=== PATIENT | male | born 1980 | race Caucasian/White ===

== ENCOUNTER 2016-05-03 18:24 | Emergency (ER) | payer OTHER ==
[~2016-05-03] VITALS: Ht 193 cm; Wt 169.6 kg
[~2016-05-03 18:24] MED LIST: FURO-85 PO; GLC500 PO; INSDGIPEN SC; LEVO200T6 PO; LEVO25TA5 PO; LISI40TA PO; LPT10 PO; PROM12.57 PO; SERT-234 PO; TPRSR/25 PO
[2016-05-03 18:31] VITALS: TEMP 37.1; Ht 193 cm; Wt 169.6 kg
[2016-05-03] MEDS ORDERED: FUROSEMIDE 40 MG/4 ML VIAL IV STA (19:01)
--- NOTE | 2016-05-03 19:19 | DIAGNOSTIC IMAGING REPORT ---
CHEST ONE VIEW PORTABLE CLINICAL HISTORY: Bilateral leg swelling. COMPARISON STUDY: 07/03/2012 FINDINGS: The heart is normal in size. There is mild nonspecific interstitial thickening. There is mild prominence of the left suprahilar region. While this may represent a vascular confluence, mild adenopathy cannot be excluded. There are no pleural effusions. There is a poor inspiration.[ IMPRESSION: 1. Suboptimal inspiration with nonspecific interstitial thickening 2. Mild prominence of the left superior hilum Electronically signed by: Bladimir Armenta M.D. 05/03/2016 7:18 PM Dictated Date/Time: 05/03/2016 7:16 PM
--- NOTE | 2016-05-03 19:39 | EMERGENCY ROOM VISIT NOTE ---
History Report prepared by John: April Balderrama Under the Supervision of: Dr. Ronnell Smith M.D. First contact with patient: 18:44 Chief Complaint: EDEMA TO EXTREMITY Stated Complaint: FLUID BUILD UP IN EXTREMITIES History of Present Illness The patient is a 36 year old male who presents to the Emergency Room with complaints of worsening bilaterally lower extremity swelling for the past 2 days. He states that he has felt "off" for the past couple of days. Yesterday he noticed increased swelling to his feet. Today this has spread up his legs. He denies consuming any increased amount of salt. He takes Lasix every morning. He has not missed any doses. The patient rates his pain as a 3/10. He denies any chest pain or shortness of breath. He has a history of blood clots but is not currently on any blood thinners. Source of History: patient Onset: 2 days ago Position: leg (bilateral) Symptom Intensity: 3/10 Quality: other (swelling) Timing: worsening Associated Symptoms: No SOB, No chest pain Review of Systems See HPI for pertinent positives & negatives. A total of 10 systems reviewed and were otherwise negative. Past Medical & Surgical Medical Problems: (1) Depressive Disorder Nec (2) Diab Heidy Wo Compl, Type Ii Or Unspec Type, Not Uncntrld (3) History Of Tobacco Use (4) Hypertension Nos (5) Hypothyroidism Nos (6) PE (pulmonary thromboembolism) Surgical Problems: (1) History of shoulder surgery Family History Diabetes mellitus Hypertension Kidney disease Kidney stones Social History Smoking Status: Never Smoker Alcohol Use: none Marital Status: single Housing Status: lives with family Occupation Status: unemployed Current/Historical Medications Scheduled Atorvastatin (Atorvastatin Calcium), 10 MG PO WK Furosemide (Lasix), 40 MG PO QAM Insulin Glargine (Lantus *), 50 SC QAM Levothyroxine Sodium (Levothyroxine Sodium), 200 MCG PO DAILY Levothyroxine Sodium (Levothyroxine Sodium), 50 MCG PO DAILY Lisinopril (Prinivil), 40 MG PO BID Metformin HCL (Glucophage *), 500 MG PO BID Metoprolol Succinate (Metoprolol Succinate ER), 50 MG PO QPM Sertraline (Zoloft), 100 MG PO DAILY Scheduled PRN Promethazine (Phenergan ), 1-2 TABS PO Q4 PRN for nausea Allergies Coded Allergies: No Known Allergies (Verified , 05/03/16) Physical Exam Vital Signs Date Time Temp Pulse Resp B/P Pulse Ox O2 Delivery O2 Flow Rate FiO2 05/03/16 22:11 74 18 180/103 100 05/03/16 20:07 70 18 183/114 100 Room Air 05/03/16 18:31 37.1 80 16 169/109 98 Room Air Physical Exam GENERAL: Patient is a healthy-appearing well-nourished 36 year old male. HEAD: Normocephalic atraumatic EYES: Ocular movements intact pupils equal and react to light OROPHARYNX mucous membranes are moist no exudates present no erythema or edema present NECK: Supple no nuchal rigidity CHEST: Good equal expansion LUNGS: Clear and equal to auscultation CARDIAC: Normal S1 and S2 ABDOMEN: Soft nontender no guarding BACK: No CVA tenderness EXTREMITIES: No pain upon palpation normal muscle strength in all groups no clubbing or cyanosis. Bilateral lower extremity edema. NEURO: Patient is following commands is answering questions appropriately. Alert and oriented x3 Cranial Nerves 2-12 grossly intact Medical Decision & Procedures ER Provider Diagnostic Interpretation: Radiology results as stated below per my review and radiologist interpretation: ULTRASOUND VENOUS DOPPLER LWR EXT BILA CLINICAL HISTORY: Bilateral leg swelling PAIN COMPARISON STUDY: 07/28/2014 FINDINGS: The examination was difficult secondary to the patient's large body habitus. No thrombus is visualized in the common femoral, superficial femoral, or popliteal veins bilaterally. The anterior tibial peroneal veins were not visualized bilaterally. Posterior tibial veins appeared patent. IMPRESSION: 1. No evidence of lower extremity DVT 2. Suboptimal visualization of the calf vessels Electronically signed by: Bladimir Armenta M.D. 05/03/2016 9:24 PM Dictated Date/Time: 05/03/2016 9:23 PM CHEST ONE VIEW PORTABLE CLINICAL HISTORY: Bilateral leg swelling. COMPARISON STUDY: 07/03/2012 FINDINGS: The heart is normal in size. There is mild nonspecific interstitial thickening. There is mild prominence of the left suprahilar region. While this may represent a vascular confluence, mild adenopathy cannot be excluded. There are no pleural effusions. There is a poor inspiration.[ IMPRESSION: 1. Suboptimal inspiration with nonspecific interstitial thickening 2. Mild prominence of the left superior hilum Electronically signed by: Bladimir Armenta M.D. 05/03/2016 7:18 PM Dictated Date/Time: 05/03/2016 7:16 PM Laboratory Results 05/03/16 19:15 Red Blood Count 4.17, Mean Corpuscular Volume 87.1, Mean Corpuscular Hemoglobin 30.5, Mean Corpuscular Hemoglobin Concent 35.0, Mean Platelet Volume 10.4, Neutrophils (%) (Auto) 58.7, Lymphocytes (%) (Auto) 27.7, Monocytes (%) (Auto) 5.4, Eosinophils (%) (Auto) 7.7, Basophils (%) (Auto) 0.3, Neutrophils # (Auto) 3.38, Lymphocytes # (Auto) 1.59, Monocytes # (Auto) 0.31, Eosinophils # (Auto) 0.44, Basophils # (Auto) 0.02 05/03/16 19:15 Test 05/03/16 19:15 White Blood Count 5.75 K/uL (4.8-10.8) Red Blood Count 4.17 M/uL (4.7-6.1) Hemoglobin 12.7 g/dL (14.0-18.0) Hematocrit 36.3 % (42-52) Mean Corpuscular Volume 87.1 fL (80-100) Mean Corpuscular Hemoglobin 30.5 pg (25-34) Mean Corpuscular Hemoglobin Concent 35.0 g/dl (32-36) Platelet Count 173 K/uL (130-400) Mean Platelet Volume 10.4 fL (7.4-10.4) Neutrophils (%) (Auto) 58.7 % Lymphocytes (%) (Auto) 27.7 % Monocytes (%) (Auto) 5.4 % Eosinophils (%) (Auto) 7.7 % Basophils (%) (Auto) 0.3 % Neutrophils # (Auto) 3.38 K/uL (1.4-6.5) Lymphocytes # (Auto) 1.59 K/uL (1.2-3.4) Monocytes # (Auto) 0.31 K/uL (0.11-0.59) Eosinophils # (Auto) 0.44 K/uL (0-0.5) Basophils # (Auto) 0.02 K/uL (0-0.2) RDW Standard Deviation 39.6 fL (36.4-46.3) RDW Coefficient of Variation 12.6 % (11.5-14.5) Immature Granulocyte % (Auto) 0.2 % Immature Granulocyte # (Auto) 0.01 K/uL (0.00-0.02) Anion Gap 8.0 mmol/L (3-11) Est Creatinine Clear Calc Drug Dose 115.5 ml/min Estimated GFR () 68.4 Estimated GFR (Non- 59.0 BUN/Creatinine Ratio 12.2 (10-20) Calcium Level 8.8 mg/dl (8.5-10.1) Total Bilirubin 0.3 mg/dl (0.2-1) Aspartate Amino Transf (AST/SGOT) 17 U/L (15-37) Alanine Aminotransferase (ALT/SGPT) 27 U/L (12-78) Alkaline Phosphatase 95 U/L (45-117) Pro-B-Type Natriuretic Peptide 489 pg/ml (0-450) Total Protein 7.4 gm/dl (6.4-8.2) Albumin 3.4 gm/dl (3.4-5.0) Globulin 4.0 gm/dl (2.5-4.0) Albumin/Globulin Ratio 0.9 (0.9-2) Labs reviewed by ED physician. Medications Administered Medications (Trade) Dose Ordered Sig/Katelin Route Start Time Stop Time Status Last Admin Dose Admin Furosemide (Lasix Inj) 40 mg NOW STAT IV 05/03/16 19:01 05/03/16 19:05 DC 05/03/16 20:04 40 MG ECG Indication: other Rate (beats per minute): 73 Rhythm: normal sinus Findings: no acute ischemic change, no ectopy Comparison ECG Date: 07/02/15 Change: no significant change ED Course 184: Past medical records reviewed. The patient was evaluated in room C8. A complete history and physical examination was performed. 1900: Lasix 40 mg IV 2201: I reassessed the patient at this time. He is feeling better and resting comfortably. I discussed the results and treatment plan with the patient. I answered all pertaining questions that he had. He expressed understanding and verbalized agreement. The patient will be discharged home. Medical Decision Differential diagnosis: Etiologies such as infections, reactive airway disease, pneumonia, pneumothorax , COPD, CHF, cardiac ischemia, pulmonary embolism, musculoskeletal, gastrointestinal, as well as others were entertained. This is a 36-year-old male who presents emergency department complaining of bilateral leg swelling. The patient was supposed to be using compression stockings however he never got the prescription filled. In addition the patient has a normal chest x-ray has no evidence of failure on. He was given 40 mg of Lasix in the emergency department. Ultrasounds of bilateral extremity is do not show any evidence of a DVT. Based on these findings I felt that the patient as well as to be discharged home. The patient was given compression stockings. I encouraged him follow-up with his primary care physician. Patient was in agreement with the treatment plan. Impression Primary Impression: Localized swelling of both lower legs Scribe Attestation The scribe's documentation has been prepared under my direction and personally reviewed by me in its entirety. I confirm that the note above accurately reflects all work, treatment, procedures, and medical decision making performed by me. Departure Information Dispostion Home / Self-Care Referrals Kareem Jewell M.D. (PCP) Forms HOME CARE DOCUMENTATION FORM, IMPORTANT VISIT INFORMATION, WORK / SCHOOL INSTRUCTIONS Patient Instructions A Signature Page, My [facility] Additional Instructions You have been examined and treated today on an emergency basis only. This is not a substitute for, or an effort to provide, complete comprehensive medical care. It is impossible to recognize and treat all injuries or illnesses in a single emergency department visit. It is therefore important that you follow up closely with Dr Jewell. Call as soon as possible for an appointment. Thank you for your time and consideration. I look forward to speaking with you again soon. Please don't hesitate to call us if you have any questions.
[2016-05-03 19:54] LABS: BASO % 0.3 %; BASO ABS # 0.02 K/uL (0-0.2); COMPLETE YES; EOS % 7.7 %; HEMATOCRIT 36.3 % (42-52); IG% 0.2 %; LYMPH % 27.7 %; LYMPH ABS # 1.59 K/uL (1.2-3.4); MEAN CELL VOLUME 87.1 fL (80-100); MEAN CORPUSCULAR HEMOGLOBIN 30.5 pg (25-34); MEAN PLATELET VOLUME 10.4 fL (7.4-10.4); MONO % 5.4 %; NEUT % 58.7 %; PLATELET COUNT 173 K/uL (130-400); RED BLOOD COUNT 4.17 M/uL (4.7-6.1); WHITE BLOOD COUNT 5.75 K/uL (4.8-10.8)
[2016-05-03 20:13] LABS: BUN/CREATININE RATIO 12.2 (10-20); CALCIUM 8.8 mg/dl (8.5-10.1); CREATININE 1.5 mg/dl (0.60-1.40); POTASSIUM 3.5 mmol/L (3.5-5.1)
[2016-05-03 20:18] LABS: ALB/GLOB RATIO 0.9 (0.9-2)
--- NOTE | 2016-05-03 21:26 | DIAGNOSTIC IMAGING REPORT ---
ULTRASOUND VENOUS DOPPLER LWR EXT BILA CLINICAL HISTORY: Bilateral leg swelling PAIN COMPARISON STUDY: 07/28/2014 FINDINGS: The examination was difficult secondary to the patient's large body habitus. No thrombus is visualized in the common femoral, superficial femoral, or popliteal veins bilaterally. The anterior tibial peroneal veins were not visualized bilaterally. Posterior tibial veins appeared patent. IMPRESSION: 1. No evidence of lower extremity DVT 2. Suboptimal visualization of the calf vessels Electronically signed by: Bladimir Armenta M.D. 05/03/2016 9:24 PM Dictated Date/Time: 05/03/2016 9:23 PM
[2016-05-03 22:11] VITALS: BP 180/103; PULSE 74; O2SAT 100
== END 2016-05-03 22:17 | disposition home or self-care (01) ==
LOC: C.EDB 18:29 → C.EDC 22:17
DX: R22.41 Localized swelling, mass and lump, right lower limb (principal); R22.42 Localized swelling, mass and lump, left lower limb; I10 Essential (primary) hypertension; E11.9 Type 2 diabetes mellitus without complications; E03.9 Hypothyroidism, unspecified; F32.9 Major depressive disorder, single episode, unspecified; Z86.711 Personal history of pulmonary embolism; Z87.891 Personal history of nicotine dependence; Z98.890 Other specified postprocedural states; Z79.4 Long term (current) use of insulin; Z79.899 Other long term (current) drug therapy; Z83.3 Family history of diabetes mellitus; Z82.49 Family history of ischemic heart disease and other diseases of the circulatory system; Z84.1 Family history of disorders of kidney and ureter

== ENCOUNTER → 2016-09-03 | Outpatient (CLI) | payer OTHER ==
[~2016-09-03] MED LIST changes: +AZITTAB PO; +BUPR-266 PO; +GLC/500 PO; -PROM12.57 PO; +VNTHFA/IN INH
[2016-09-03 17:30] LABS: HEMATOCRIT 38.2 % (42-52); MEAN CELL VOLUME 91.4 fL (80-100); MEAN CORPUSCULAR HEMOGLOBIN 30.9 pg (25-34); MEAN CORPUSCULAR HGB CONC 33.8 g/dl (32-36); MEAN PLATELET VOLUME 10.4 fL (7.4-10.4); PLATELET COUNT 182 K/uL (130-400); RED BLOOD COUNT 4.18 M/uL (4.7-6.1); WHITE BLOOD COUNT 6.79 K/uL (4.8-10.8)
[2016-09-03 17:55] LABS: CALCIUM 9.5 mg/dl (8.5-10.1); URINE APPEARANCE CLEAR (CLEAR); URINE BILIRUBIN NEG (NEG); URINE COLOR YELLOW; URINE EPITHELIAL CELL AUTO 20-30 /lpf (0-5); URINE NITRITE NEG (NEG); URINE SPECIFIC GRAVITY 1.017 (1.000-1.030); UROBILINOGEN NEG (NEG)
[2016-09-03 17:58] LABS: MANUAL MICROSCOPIC REQUIRED? NO; REVIEW REQ? NO; URINE PROTIEN/CREAT RATIO 0.1 (0-0.2)
[2016-09-03 18:00] LABS: ALT/SGPT 30 U/L (12-78); AST/SGOT 18 U/L (15-37); BLOOD UREA NITROGEN 41 mg/dl (7-18); BUN/CREATININE RATIO 18.5 (10-20); CARBON DIOXIDE 25 mmol/L (21-32); CHLORIDE 107 mmol/L (98-107); CHOLESTEROL 263 mg/dl (0-200); GLUCOSE 137 mg/dl (70-99); SODIUM 140 mmol/L (136-145); TRIGLYCERIDES 373 mg/dl (0-150); VERY LOW DENSITY LIPOPROT CALC 75 mg/dl
[2016-09-03 18:01] LABS: ESTIMATED AVERAGE GLUCOSE 258 mg/dl; HA1C FLAG Normal (Normal)
[2016-09-03 18:11] LABS: CHOLESTEROL/HDL RATIO 7.5; HDL CHOLESTEROL 35 mg/dl; LDL CHOLESTEROL CALCULATED 153 mg/dl; PHOSPHORUS 2.9 mg/dl (2.5-4.9)
== END | disposition home or self-care (01) ==
LOC: C.LAB1850 16:41
PROVIDERS: ATTEND Nurse Practitioner Adult Health
DX: E03.9 Hypothyroidism, unspecified (principal); E11.65 Type 2 diabetes mellitus with hyperglycemia; R60.9 Edema, unspecified; E55.9 Vitamin D deficiency, unspecified; I12.9 Hypertensive chronic kidney disease with stage 1 through stage 4 chronic kidney disease, or unspecified chronic kidney disease; N18.1 Chronic kidney disease, stage 1; E11.22 Type 2 diabetes mellitus with diabetic chronic kidney disease; E78.5 Hyperlipidemia, unspecified; E66.01 Morbid (severe) obesity due to excess calories

== ENCOUNTER 2016-09-06 04:43 | Emergency (ER) | payer OTHER ==
[~2016-09-06] VITALS: Ht 190.5 cm; Wt 167.3 kg
[~2016-09-06 04:43] MED LIST changes: -AZITTAB PO; -BUPR-266 PO; -GLC/500 PO; -VNTHFA/IN INH
[2016-09-06 04:47] VITALS: TEMP 36.6; Ht 190.5 cm; Wt 167.3 kg
[2016-09-06] MEDS ORDERED: ALBUT/IPRATROP 3MG/0.5MG NEB 3 ML VIAL INH STA (04:56)
[2016-09-06] MEDS ORDERED: METHYLPREDNISOLONE 125 MG VIAL IV STA (04:56)
[2016-09-06 05:07] VITALS: O2SAT 99
[2016-09-06 05:56] LABS: BASO % 0.6 %; BASO ABS # 0.03 K/uL (0-0.2); COMPLETE YES; EOS % 8.3 %; IG% 0.2 %; LYMPH ABS # 1.35 K/uL (1.2-3.4); MEAN CELL VOLUME 91.7 fL (80-100); MEAN CORPUSCULAR HEMOGLOBIN 31.4 pg (25-34); MEAN CORPUSCULAR HGB CONC 34.2 g/dl (32-36); MEAN PLATELET VOLUME 10.2 fL (7.4-10.4); MONO % 8.5 %; NEUT % 54.4 %; PLATELET COUNT 144 K/uL (130-400); WHITE BLOOD COUNT 4.83 K/uL (4.8-10.8)
[2016-09-06] MEDS ORDERED: INSDGIPEN SC (06:16)
[2016-09-06] MEDS ORDERED: GLC/500 PO (06:16)
[2016-09-06 06:24] LABS: ALT/SGPT 23 U/L (12-78); BLOOD UREA NITROGEN 46 mg/dl (7-18); CALCIUM 8.1 mg/dl (8.5-10.1); CARBON DIOXIDE 24 mmol/L (21-32); CHLORIDE 109 mmol/L (98-107); GLUCOSE 230 mg/dl (70-99); POTASSIUM 4.2 mmol/L (3.5-5.1); SODIUM 141 mmol/L (136-145)
[2016-09-06] MEDS ORDERED: SODIUM CHLORIDE 0.9% 500ML 500 ML IV STA (06:26)
[2016-09-06] MEDS ORDERED: SODIUM CHLORIDE 0.9% 1000ML 1,000 ML IV STA (06:26)
[2016-09-06 06:27] LABS: ALKALINE PHOSPHATASE 70 U/L (45-117); AST/SGOT 17 U/L (15-37)
--- NOTE | 2016-09-06 06:37 | EMERGENCY ROOM VISIT NOTE ---
History First contact with patient: 04:50 Chief Complaint: RESPIRATORY PROBLEMS Stated Complaint: CAN'T GET MY BREATH History of Present Illness The patient is a 36 year old male who presents to the Emergency Room with complaints of cough and shortness of breath for the past few days that is steadily getting worse. Patient has had a history of PE. He is currently not anticoagulated. This was a few years ago. Patient denies chest pain, fever, chills, abdominal pain, increasing leg pain or swelling, sore throat. He does have some postnasal drip. He does not smoke. No recent travel. Review of Systems See HPI for pertinent positives & negatives. A total of 10 systems reviewed and were otherwise negative. Past Medical/Surgical History Medical Problems: (1) Depressive Disorder Nec (2) Diab Heidy Wo Compl, Type Ii Or Unspec Type, Not Uncntrld (3) History Of Tobacco Use (4) Hypertension Nos (5) Hypothyroidism Nos (6) PE (pulmonary thromboembolism) Surgical Problems: (1) History of shoulder surgery Family History Diabetes mellitus Hypertension Kidney disease Kidney stones Social History Smoking Status: Former Smoker Alcohol Use: none Marital Status: single Housing Status: lives with family Occupation Status: unemployed Current/Historical Medications Scheduled Atorvastatin (Atorvastatin Calcium), 10 MG PO WK Furosemide (Lasix), 40 MG PO QAM Insulin Glargine (Lantus Solostar), 55 UNITS SC QAM Levothyroxine Sodium (Levothyroxine Sodium), 200 MCG PO DAILY Levothyroxine Sodium (Levothyroxine Sodium), 50 MCG PO DAILY Lisinopril (Prinivil), 40 MG PO BID Metformin Hcl (Glucophage), 500 MG PO BID Metoprolol Succinate (Metoprolol Succinate ER), 50 MG PO QPM Sertraline (Zoloft), 100 MG PO DAILY Allergies Coded Allergies: No Known Allergies (Verified , 09/06/16) Physical Exam Vital Signs Date Time Temp Pulse Resp B/P Pulse Ox O2 Delivery O2 Flow Rate FiO2 09/06/16 06:16 70 18 118/83 99 Room Air 09/06/16 05:29 Room Air 09/06/16 05:10 75 09/06/16 05:07 99 Room Air 09/06/16 05:02 Room Air 09/06/16 04:47 36.6 84 20 137/83 98 Room Air Physical Exam VITALS: Vitals are noted on the nurse's note and reviewed by myself. Vital signs stable. GENERAL: Pleasant male speaking in full sentences, in no acute distress, nondiaphoretic, well-developed well-nourished. SKIN: The skin was without rashes, erythema, edema, or bruising. There is no tenting of the skin. Capillary reflex less than 2 seconds. HEAD: Normocephalic atraumatic. EARS: External auditory canals clear, tympanic membranes pearly rosario without erythema or effusion bilaterally. EYES: Pupils equal round and reactive to light and accommodation. Conjunctivae without injection, sclerae without icterus. Extraocular movements intact. NOSE: Patent, turbinates without inflammation or discharge. No sinus tenderness. MOUTH: Mucous membranes moist. Pharynx without erythema or exudate. Uvula midline. Airway patent. Tongue does not deviate. NECK: Supple without nuchal rigidity. No lymphadenopathy. No thyromegaly. Cervical spine is nontender. No JVD. HEART: Regular rate and rhythm without murmurs gallops or rubs. LUNGS: Clear to auscultation bilaterally without wheezes, rales or rhonchi. No dullness to percussion. No retractions or accessory muscle use. ABDOMEN: Positive bowel sounds x 4. Normal tympanic percussion. Soft, protuberant, obese, nontender, without masses or organomegaly. Isidro sign negative. No guarding or rebound tenderness. MUSCULOSKELETAL: No muscle atrophy noted. + 1Pitting edema up to the mid tib- fib bilaterally unchanged per patient NEURO: Patient was alert and oriented to person place and time. Normal sensation to light and sharp touch. No focal neurological deficits. Medical Decision & Procedures Laboratory Results 09/06/16 05:40 Red Blood Count 3.60, Mean Corpuscular Volume 91.7, Mean Corpuscular Hemoglobin 31.4, Mean Corpuscular Hemoglobin Concent 34.2, Mean Platelet Volume 10.2, Neutrophils (%) (Auto) 54.4, Lymphocytes (%) (Auto) 28.0, Monocytes (%) (Auto) 8.5, Eosinophils (%) (Auto) 8.3, Basophils (%) (Auto) 0.6, Neutrophils # (Auto) 2.63, Lymphocytes # (Auto) 1.35, Monocytes # (Auto) 0.41, Eosinophils # (Auto) 0.40, Basophils # (Auto) 0.03 09/06/16 05:40 Test 09/06/16 05:40 09/06/16 05:47 White Blood Count 4.83 K/uL (4.8-10.8) Red Blood Count 3.60 M/uL (4.7-6.1) Hemoglobin 11.3 g/dL (14.0-18.0) Hematocrit 33.0 % (42-52) Mean Corpuscular Volume 91.7 fL (80-100) Mean Corpuscular Hemoglobin 31.4 pg (25-34) Mean Corpuscular Hemoglobin Concent 34.2 g/dl (32-36) Platelet Count 144 K/uL (130-400) Mean Platelet Volume 10.2 fL (7.4-10.4) Neutrophils (%) (Auto) 54.4 % Lymphocytes (%) (Auto) 28.0 % Monocytes (%) (Auto) 8.5 % Eosinophils (%) (Auto) 8.3 % Basophils (%) (Auto) 0.6 % Neutrophils # (Auto) 2.63 K/uL (1.4-6.5) Lymphocytes # (Auto) 1.35 K/uL (1.2-3.4) Monocytes # (Auto) 0.41 K/uL (0.11-0.59) Eosinophils # (Auto) 0.40 K/uL (0-0.5) Basophils # (Auto) 0.03 K/uL (0-0.2) RDW Standard Deviation 43.5 fL (36.4-46.3) RDW Coefficient of Variation 12.9 % (11.5-14.5) Immature Granulocyte % (Auto) 0.2 % Immature Granulocyte # (Auto) 0.01 K/uL (0.00-0.02) Anion Gap 8.0 mmol/L (3-11) Est Creatinine Clear Calc Drug Dose 80.9 ml/min Estimated GFR () 45.6 Estimated GFR (Non- 39.3 BUN/Creatinine Ratio 22.0 (10-20) Calcium Level 8.1 mg/dl (8.5-10.1) Total Bilirubin 0.3 mg/dl (0.2-1) Direct Bilirubin < 0.1 mg/dl (0-0.2) Aspartate Amino Transf (AST/SGOT) 17 U/L (15-37) Alanine Aminotransferase (ALT/SGPT) 23 U/L (12-78) Alkaline Phosphatase 70 U/L (45-117) Total Protein 6.4 gm/dl (6.4-8.2) Albumin 3.1 gm/dl (3.4-5.0) Bedside D-Dimer > 450 ng/mlFEU (0-450) Bedside Troponin I 0.000 ng/ml (0-0.045) Medications Administered Medications (Trade) Dose Ordered Sig/Katelin Route Start Time Stop Time Status Last Admin Dose Admin Albuterol/ Ipratropium (Duoneb) 3 ml NOW STAT INH 09/06/16 04:56 09/06/16 04:58 DC 09/06/16 05:35 3 ML Methylprednisolone Sodium Succinate (Solu-Medrol IV) 125 mg NOW STAT IV 09/06/16 04:56 09/06/16 04:58 DC 09/06/16 05:36 125 MG ED Course Prior records/ancillary studies reviewed. Triage Nursing notes reviewed. Additional history obtained from the family. The patient's history was concerning for respiratory difficulties. Differential diagnosis: Etiologies such as infections, reactive airway disease, pneumonia, pneumothorax , COPD, CHF, cardiac ischemia, pulmonary embolism, musculoskeletal, gastrointestinal, as well as others were entertained. Physical examination: As above. ER treatment provided: Nebulizer, Solu-Medrol On reassessment the patient felt better. Diagnostic interpretation by me: The electrocardiogram was negative for acute ischemic or pathologic change. Normal Sinus, normal intervals, no acute ST-T wave changes. Impression normal sinus rhythm interpreted by myself The labs revealed CR 2.1, elevated ddimer Imaging studies: Chest x-ray with no acute consolidation, pneumothorax or free air per my interpretation. Consultation: A consultation was placed with the [facility] Resident hospitalist, Dr Walls. The case was discussed and diagnostics were reviewed. The patient was evaluated in the ER for further treatment. This appears to be consistent with dyspnea. Patient has an elevated d-dimer and creatinine. He will need a VQ scan. I discussed this with medicine. He will be evaluated by them for this test. By the evaluation outlined above emergent etiologies such as CHF, cardiac ischemia, pneumothorax, musculoskeletal, serious bacterial infections, as well as others were deemed relatively unlikely. The pt informed about the findings as listed above. All questions were answered and pleased with the treatment. Case reviewed with my attending Medical Decision As above Impression Primary Impression: Dyspnea Departure Information Dispostion Being Evaluated By Hospitalist Condition GOOD Referrals Pro,Kareem Mcduffie M.D. (PCP) Patient Instructions My [facility] Problem Qualifiers Primary Impression: Dyspnea Dyspnea type: unspecified Qualified Codes: R06.00 - Dyspnea, unspecified
--- NOTE | 2016-09-06 07:07 | DIAGNOSTIC IMAGING REPORT ---
CHEST ONE VIEW PORTABLE CLINICAL HISTORY: Atypical chest pain COMPARISON STUDY: 05/03/2016 FINDINGS: The cardiac and mediastinal contours remain stable. There is no focal pulmonary consolidation. There is no failure. There are no pleural effusions.[ IMPRESSION: No active disease in the chest. Electronically signed by: Bladimir Armenta M.D. 09/06/2016 7:05 AM Dictated Date/Time: 09/06/2016 7:05 AM
--- NOTE | 2016-09-06 08:01 | Medical Consult ---
Consultation Date of Consultation: September 06, 2016. Attending Physician: Dr. Higinio Solo Reason for Consultation: Shortness of breath, need for VQ scan History of Present Illness This is a 36 yo M with PMHx of DM II, CKD stage III, morbid obesity, hypertension, hypothyroidism, diabetic nephropathy, diabetic neuropathy, hx of PE, remote smoking hx of 1 pack per week x 3 years, quit 12 years ago, who presents to the ED with shortness of breath which awoke him from sleep at approximately 0300. Pt is here with his father. PT reports he started with a cough on Saturday which has been nonproductive. His father was sick with a cough on Saturday into Saturday, but he denies other sick contacts. He denies seasonal allergies or recent medication changes. He denies feeling more short of breath on exertion, but states he is a fairly sedentary person due to trying to keep his legs up to prevent edema. He denies feeling fever, sweats or chills since the start of his cough. The patient admits to history of PE in May 2012 where he was initially on coumadin, he is no longer on anticoagulation. He has never been diagnosed with a DVT although has had many ultrasounds of his legs with history of lymphadema. Currently the patient feels back to his baseline. In the ED he received a duoneb treatment, Solumedrol 125 mcg IV x 1, and is currently he is satting 100% on room air, has no cough, feels like he is breathing well. His Cr. is elevated at 2.1, but is decreased from previous reading of 2.4 on 09/03, D-dimer was elevated and CTPE was not obtained due to elevated Cr. A VQ scan has been ordered and nuclear med is able to take the patient for this study by 9:30am. Past Medical/Surgical History Medical Problems: (1) Acute gastroenteritis Status: Acute (2) Dehydration Status: Acute (3) Diarrhea Status: Acute (4) Dyspnea Status: Acute (5) Nausea & vomiting Status: Acute (6) Nausea vomiting and diarrhea Status: Acute (7) Renal insufficiency Status: Acute Family History Diabetes mellitus Hypertension Kidney disease Kidney stones Social History Smoking Status: Former Smoker Alcohol Use: none Drug Use: none Marital Status: single Housing Status: lives with family Occupation Status: unemployed Allergies Coded Allergies: No Known Allergies (Verified , 09/06/16) Current Inpatient Medications Current Inpatient Medications Medications (Trade) Dose Ordered Sig/Katelin Route Start Time Stop Time Status Last Admin Dose Admin Sodium Chloride (Nss 1000ml) 1,000 ml @ 125 mls/hr Q8H STAT IV 09/06/16 06:26 09/06/16 14:25 09/06/16 06:50 125 MLS/HR Review of Systems Constitutional: No chills, No fever, No sweats ENT: No sore throat, No trouble swallowing Cardiovascular: No chest pain, No palpitations Abdomen: No constipation, No diarrhea, No nausea, No pain, No vomiting Musculoskeletal: No joint pain, No swelling Genitourinary - Male: No dysuria, No hematuria Neurologic: No balance problems, No numbness/tingling Endocrine: No fatigue Integumentary: No itch, No rash Allergic / Immunologic: No environmental allergies, No pet sensitivities, No seasonal allergies Physical Exam Date Time Temp Pulse Resp B/P Pulse Ox O2 Delivery O2 Flow Rate FiO2 09/06/16 06:16 70 18 118/83 99 Room Air 09/06/16 05:29 Room Air 09/06/16 05:10 75 09/06/16 05:07 99 Room Air 09/06/16 05:02 Room Air 09/06/16 04:47 36.6 84 20 137/83 98 Room Air General Appearance: WD/WN, no apparent distress, + obese (morbid) Head: normocephalic, atraumatic Eyes: PERRL, EOMI ENT: hearing grossly normal, pharynx normal Neck: supple, no JVD Respiratory/Chest: lungs clear, no respiratory distress, no accessory muscle use Cardiovascular: regular rate, rhythm, no murmur Abdomen/GI: normal bowel sounds, non tender, soft, no organomegaly Back: normal inspection Extremities/Musculoskelatal: normal inspection, no calf tenderness, no pedal edema, + pertinent finding (Paul stockings on, no pedal edema.) Neurologic/Psych: alert, normal mood/affect, oriented x 3 Skin: normal color, warm/dry Laboratory Results Last 24 Hours Test 09/06/16 05:40 09/06/16 05:47 White Blood Count 4.83 K/uL Red Blood Count 3.60 M/uL Hemoglobin 11.3 g/dL Hematocrit 33.0 % Mean Corpuscular Volume 91.7 fL Mean Corpuscular Hemoglobin 31.4 pg Mean Corpuscular Hemoglobin Concent 34.2 g/dl Platelet Count 144 K/uL Mean Platelet Volume 10.2 fL Neutrophils (%) (Auto) 54.4 % Lymphocytes (%) (Auto) 28.0 % Monocytes (%) (Auto) 8.5 % Eosinophils (%) (Auto) 8.3 % Basophils (%) (Auto) 0.6 % Neutrophils # (Auto) 2.63 K/uL Lymphocytes # (Auto) 1.35 K/uL Monocytes # (Auto) 0.41 K/uL Eosinophils # (Auto) 0.40 K/uL Basophils # (Auto) 0.03 K/uL RDW Standard Deviation 43.5 fL RDW Coefficient of Variation 12.9 % Immature Granulocyte % (Auto) 0.2 % Immature Granulocyte # (Auto) 0.01 K/uL Sodium Level 141 mmol/L Potassium Level 4.2 mmol/L Chloride Level 109 mmol/L Carbon Dioxide Level 24 mmol/L Anion Gap 8.0 mmol/L Blood Urea Nitrogen 46 mg/dl Creatinine 2.10 mg/dl Est Creatinine Clear Calc Drug Dose 80.9 ml/min Estimated GFR () 45.6 Estimated GFR (Non- 39.3 BUN/Creatinine Ratio 22.0 Random Glucose 230 mg/dl Calcium Level 8.1 mg/dl Total Bilirubin 0.3 mg/dl Direct Bilirubin < 0.1 mg/dl Aspartate Amino Transf (AST/SGOT) 17 U/L Alanine Aminotransferase (ALT/SGPT) 23 U/L Alkaline Phosphatase 70 U/L Total Protein 6.4 gm/dl Albumin 3.1 gm/dl Bedside D-Dimer > 450 ng/mlFEU Bedside Troponin I 0.000 ng/ml Assessment & Plan This is a 36 yo M with PMHx of DM II, CKD stage III, morbid obesity, hypertension, hypothyroidism, diabetic nephropathy, diabetic neuropathy, hx of PE, remote smoking hx of 1 pack per week x 3 years, quit 12 years ago, who presents to the ED with shortness of breath which awoke him from sleep at approximately 0300. Shortness of breath Hx of PE in 2013 - Already has received solumedrol 125 mcg and duoneb treatments which have helped symptomatically - O2 ykdu=700% on room air - CXR reviewed without acute findings - D-dimer in process, elevation possibly due to CKD - CTPE not obtained due to Cr being elevated; discussed with Dr. Lemons who agreed CT would be ok this morning. Will ask to have VQ scan cancelled and can discharge from the ER if CTPE negative. - would recommend follow up with his PCP within 1 week. CKD stage III - Cr.= 2.1, baseline appears to be 1.7-1.9. Cr. was elevated 2 days ago at 2.2. - Pt is drinking 2, 40oz water bottle daily at max, and reports he is frequently told by his fitter placer ( who he saw on Saturday) that he needs to drink more water. - Avoid nephrotoxins DM II - A1C was 10.6 on last check on 09/03/16 - On chronic insulin, continue Hypothyroidism - Continue levothyroxine Morbid Obesity, BMI= 46.1 - Discussion regarding diet and exercise should be held and continued encouragement for the patient to loose weight. Please contact the medicine service if the patient does indeed have a positive CTPE for admission. Thank you for this consult.
[2016-09-06] MEDS ORDERED: SODIUM CHLORIDE 0.9% 1000ML 1,000 ML IV SCH (08:44)
[2016-09-06] MEDS ORDERED: OPTIRAY 320 IV PRN (10:15)
--- NOTE | 2016-09-06 10:15 | DIAGNOSTIC IMAGING REPORT ---
CT ANGIOGRAM OF THE CHEST CLINICAL HISTORY: Shortness of breath. Cough. ATYPICAL CHEST PAIN. COMPARISON STUDY: Chest x-ray dated 09/06/2016, CT scan dated 06/15/2012 TECHNIQUE: Following the IV administration of 120 mL of Optiray-320, CT angiogram of the thorax was performed from the thoracic inlet to the lung bases utilizing the pulmonary embolus protocol. Images are reviewed in the axial, sagittal, and coronal planes. IV contrast was administered without complication. MIP imaging was performed. CT DOSE: 707.00 mGy.cm FINDINGS: No pathologically enlarged axillary mediastinal or hilar lymph nodes were visualized. There was no evidence of thoracic aortic dilatation. There were no pulmonary artery filling defects to indicate acute pulmonary embolism. No pleural effusions are visualized. There was no evidence of focal pulmonary consolidation. IMPRESSION: 1. No CT evidence of acute pulmonary embolism 2. No evidence of acute parenchymal consolidation Electronically signed by: Bladimir Armenta M.D. 09/06/2016 10:14 AM Dictated Date/Time: 09/06/2016 10:10 AM
--- NOTE | 2016-09-06 10:40 | EMERGENCY ROOM VISIT NOTE ---
ED Visit Note First contact with patient: 07:54 This patient was initially evaluated by Kalyani Pollard PA-C. At the end of her shift she had consult with the hospitalist for admission. The patient had presented with cough and shortness of breath. The patient's d-dimer was elevated but his creatinine was 2.1 and therefore she could not do a CTA of the chest. The patient would need a VQ scan. The hospitalist evaluated the patient and had contacted nuclear medicine and they stated that they could take the patient within the next hour and a half for the VQ scan and therefore she did not feel admission was warranted at this time. If the VQ scan is positive then she will be happy to admit the patient. I evaluated the patient. He was resting comfortably. He stated he was feeling fine. I informed him of the treatment plan and he was in agreement. A VQ lung scan was ordered . The hospitalist then informed me that they had spoke with the radiologist's, Lam Lemons and he okayed a CTA of the chest therefore the VQ scan was canceled. DIAGNOSTICS:CT ANGIOGRAM OF THE CHEST CLINICAL HISTORY: Shortness of breath. Cough. ATYPICAL CHEST PAIN. COMPARISON STUDY: Chest x-ray dated 09/06/2016, CT scan dated 06/15/2012 TECHNIQUE: Following the IV administration of 120 mL of Optiray-320, CT angiogram of the thorax was performed from the thoracic inlet to the lung bases utilizing the pulmonary embolus protocol. Images are reviewed in the axial, sagittal, and coronal planes. IV contrast was administered without complication. MIP imaging was performed. CT DOSE: 707.00 mGy.cm FINDINGS: No pathologically enlarged axillary mediastinal or hilar lymph nodes were visualized. There was no evidence of thoracic aortic dilatation. There were no pulmonary artery filling defects to indicate acute pulmonary embolism. No pleural effusions are visualized. There was no evidence of focal pulmonary consolidation. IMPRESSION: 1. No CT evidence of acute pulmonary embolism 2. No evidence of acute parenchymal consolidation Electronically signed by: Bladimir Armenta M.D. 09/06/2016 10:14 AM The patient was informed of the findings. The patient was discharged home in stable condition. DIAGNOSIS: Bronchitis TREATMENT PLAN: Use the albuterol inhaler 2 puffs every 4 hours for the next 5 days then every 4 hours as needed for chest tightness or shortness of breath. Take Z-Hussain as prescribed. Recommend [id number] Mucinex as directed on the label for 5 days. Follow up with your family doctor on Saturday for recheck or earlier if symptoms worsen.
[2016-09-06] MEDS ORDERED: AZITTAB PO (10:42)
[2016-09-06] MEDS ORDERED: VNTHFA/IN INH (10:42)
[2016-09-06 10:54] VITALS: BP 141/71; PULSE 78; O2SAT 99
[2017-03-05] MEDS ORDERED: VNTHFA/IN INH (17:55)
[2017-03-05] MEDS ORDERED: BUPR-266 PO (18:00)
== END 2016-09-06 10:58 | disposition home or self-care (01) ==
LOC: C.EDB 04:44 → C.EDA 10:58
DX: R06.00 Dyspnea, unspecified (principal); I10 Essential (primary) hypertension; E11.9 Type 2 diabetes mellitus without complications; E03.9 Hypothyroidism, unspecified; F32.9 Major depressive disorder, single episode, unspecified; Z86.711 Personal history of pulmonary embolism; Z98.890 Other specified postprocedural states; Z87.891 Personal history of nicotine dependence; Z79.4 Long term (current) use of insulin; Z79.84 Long term (current) use of oral hypoglycemic drugs; Z79.899 Other long term (current) drug therapy; Z83.3 Family history of diabetes mellitus; Z82.49 Family history of ischemic heart disease and other diseases of the circulatory system; Z84.1 Family history of disorders of kidney and ureter

== ENCOUNTER → 2016-11-16 | Outpatient (CLI) | payer OTHER ==
[~2016-11-16] MED LIST changes: +GLC/500 PO; -GLC500 PO; +VNTHFA/IN INH
[2016-11-16 17:26] LABS: ALT/SGPT 43 U/L (12-78); AST/SGOT 31 U/L (15-37); BLOOD UREA NITROGEN 40 mg/dl (7-18); BUN/CREATININE RATIO 18.1 (10-20); CARBON DIOXIDE 22 mmol/L (21-32); CHLORIDE 110 mmol/L (98-107); GLUCOSE 327 mg/dl (70-99); POTASSIUM 4.2 mmol/L (3.5-5.1); SODIUM 139 mmol/L (136-145)
[2016-11-16 17:29] LABS: ALB/GLOB RATIO 0.9 (0.9-2); ALKALINE PHOSPHATASE 75 U/L (45-117)
[2016-11-16 17:36] LABS: BETA-HYDROXYBUTYRATE 1.03 mg/dL (0.2-2.81)
== END | disposition home or self-care (01) ==
LOC: C.LABPBG 15:05
PROVIDERS: ATTEND Internal Medicine Nephrology
DX: I10 Essential (primary) hypertension (principal); R80.9 Proteinuria, unspecified; E55.9 Vitamin D deficiency, unspecified; N28.9 Disorder of kidney and ureter, unspecified

== ENCOUNTER → 2016-12-11 | Outpatient (CLI) | payer OTHER ==
--- NOTE | 2016-12-12 05:49 | PAP/PSG TECHNICIAN REPORT ---
[facility] Banquet Server Polysomnogram Report Study name: None Report date: 12/12/2016 Study date: 12/11/2016 Referring Physician: DR. REID PRO Name: ARTHUR JACOBSON Interpreting Physician: Delvis Chang M.D. Date of : 1980 Banquet Server: YUNIEL Sanon. Sex: Male Age: 36 StudyType: PSG Weight: 418 lbs Height: 36 years, Height 6' 4" Neck Circum:18in. BMI: 50.88 Medications: Cyclobenzaprine HCL 10 MG, Sertraline HCL 100 MG, Vitamin D 88367 UNIT, Atorvastatin Calcium 10 mg, Furosemide 20 MG, Lisinopril 40 MG, Metoprolol Succinate ER 25 MG, Levoxyl 125 MCG, Humalog 100 UNIT, Lantus Solo State 100 UNIT, Metformin HCL 500 MG Patient History Study started on room air with ETC02 monitoring in room # 8. 36 yr old male here for a diagnostic PSG. He complains of loud snoring and that he never feels rested. His normal sleep times is 12pm to 8 am and he then takes a 3-hour nap in the afternoon. He never feels rested. He has poorly controlled diabetes, diabetic nephropathy HTN, lower extremity edema and obesity. His ESS=3/24. His neck circ=18 inches Parameters Monitored NPSG: E1-M2, E2-M1, Fp1-M2, Fp2-M1, F3-M2, F4-M2, F4-M1, C3-M2, C4-M2, C4-M1, O1-M2, O2-M2, O2-M1, T3-M2, T4-M1, P3-M2, P4-M1, CHIN1, CHIN2, HR, EKG, Legs, PFLOW, SNOR, FLOW, CFLOW, Tidal Volume, THOR, ABDO, SpO2, PLTH, CPRESS, ETCO2 Wave, ETCO2, pH Sleep Architecture Sleep Stages Time at Lights Off 9:53:56 PM STAGES Time (min.) TST (%) Time at Lights On 5:24:56 AM Wake 131.5 -- Total Recording Time (TRT) 451.00 min. N1 25.5 8 Total Sleep Period (TSP) 405.0 min. N2 165.5 52 Total Sleep Time (TST) 319.5min. N3 71.0 22 Awake Time 131.5 min. REM 57.5 18 Wake after Sleep Onset 85.5 min. Sleep Efficiency (SE) 71 % Sleep Onset Latency (MARYAM) 46.0 min. Number of Stage 1 Shifts None Awakenings 17 Stage Changes 81 Number of REM periods 1 REM 57.5 18 REM Latency 233.0 min. NREM 262.0 82 Body Position Analysis Supine Right Left Side Prone Vertical Total Sleep Time (min.) 287.7 125.5 1.0 126.53 0.0 0.0 Total Sleep Time (%) 60% 39% 0% 40 0% N/A% Total Sleep Time REM (min.) 0.0 57.5 0.0 None 0.0 0.0 Total Sleep Time NREM (min.) 193.0 68.0 1.0 None 0.0 0.0 Intermittent Wake (min.) 94.7 18.5 18.3 None 0.0 0.0 Total Sleep Period (%) 60% None None None None None Arousals Myoclonus (PLM) * Events Count Index Events Count Index Spontaneous 27 5 Events Awake (PLMW) 156 71.2 Respiratory 1 0.0 Events Asleep w/ Arousal (PLMA) 16 3.0 PLM 14 3 Events Asleep w/o Arousal (PLMS) 59 11.1 Snoring 16 3 Total Asleep 75 14.1 Total 56 11 Total 231 31 Respiratory Analysis * CA OA MA CH H RERA Total Count 0 0 0 0 4 0 4 Index 0.0 0.0 0.0 0 0.8 0 0.8 Mean Duration 0.0 0.0 0.0 0.00 18.4 0.0 18.4 Longest Duration 0.0 0.0 0.0 0.00 0.0 0.0 22.8 Respiratory Event Summary Total Supine ~Supine Right Left Prone REM NREM Apneas Count 0 0 0 0 0 N/A 0 0 Index 0.0 0 0 0.0 0.0 N/A 0 0 Hypopneas (4% Desat) Count 4 4 0 0 0 N/A 0 4 Index 0.8 1.2 0 0.0 0.0 N/A 0.0 0.9 Apneas & All Hypopneas Count 4 4 0 0 0 N/A 0 4 Index 0.8 1 0 0 0 N/A 0.0 0.9 Respiratory Events (Head Of Art+All Hyp+RERA) Count 4 4 0 0 0 N/A 0 4 Index 0.8 1 0 0.0 0.0 N/A 0.0 0.9 Respiratory Related Arousal Count 1 4 0 0 0 N/A 0 0 Index 0.0 0 0 0 0 N/A 0 0 Snoring Analysis Supine Right Left Prone REM NREM Total Snore duration 17.1 min Snores count 700 356 0 N/A 60 996 1,056 Snore mean duration 1.0 Sec Snores index 218 170 0 N/A 62.6 228.1 198.3 TST with snoring (%) 5.3% SpO2 Analysis Total REM NREM Awake <50% 0.0 min. 0.0 min. 0.0 min. 0.0 min. 51 - 60% 0.0 min. 0.0 min. 0.0 min. 0.0 min. 61 - 70% 0.0 min. 0.0 min. 0.0 min. 0.0 min. 71 - 80% 0.0 min. 0.0 min. 0.0 min. 0.0 min. 81 - 90% 0.8 min. 0.0 min. 0.4 min. 0.4 min. 91 - 100% 450.2 min. 57.5 min. 261.6 min. 131.2 min. Average 94 94 94 95 Minimum SpO2 89 91 90 89 Desaturation Event Index 3.6 1.0 3.7 5.9 # Desat. Events below 89% N/A N/A N/A N/A Time(%) with Saturation below 89% 0.0 0.0 0.0 0.0 Time(min.) with Saturation below 89% 0.0 0.0 0.0 0.0 Heart Rate Analysis End Tidal CO2 Analysis Min (bpm) Max (bpm) Average (bpm) TSP (mins) % of TSP Awake 58 87 69 Above 55 mmHg 0.0 0.0 NREM 54 81 62 50-55 mmHg 0.0 0.0 REM 50 78 61 45-50 mmHg 8.2 2.6 Overall 50 81 62 40-45 mmHg 270.5 84.7 35-40 mmHg 37.0 11.6 30-35 mmHg 3.5 1.1 Average ETCO2 0.1 Supplemental O2 Values Minimum O2 level: None Value Start Time End Time Banquet Server Comments Mr. Jacobson slept in the right, left and supine positions. No cardiac arrhythmia noted. Some leg movements were noted. No bruxism noted. Snoring was noted and scored as a 3 on a scale of 1 through 5. (0=no snoring, 5=snoring loud enough to be heard through a closed door or down the dodson way) He did not use the restroom during the night. He did not sleep as well as when at home. The final report will be interpreted and signed by a sleep physician. The completed physician report will then be placed in the patient medical record. Therapy (cm H2O) 0 TIB (min.) 451.0 TST (min.) 319.5 Sleep Onset (min.) 46.0 REM Onset From Sleep (min.) 233.0 Sleep Efficiency % 71 Wakefulness (%) 29 Wakefulness (min.) 131.5 NREM 1 (%) 8 NREM 1 (min.) 25.5 NREM 2 (%) 52 NREM 2 (min.) 165.5 NREM 3 (%) 22 NREM 3 (min.) 71.0 REM (%) 18 REM (min.) 57.5 # Arousals 56 Arousal Index 11 # Snore 1,056 Snore Index 198.3 AHI 0.8 AHI Supine 1 AHI Non-Supine 0 NREM AHI 0.9 REM AHI 0.0 RDI 0.8 # Obstructive Apnea 0 # Central Apnea 0 # Mixed Apnea 0 # Hypopneas 4 RERAs 0 Total Respiratory Events 9 Time Below SpO2 89% (min.) 0.0 Mean NREM SpO2 (%) 94 Mean REM SpO2 (%) 94 Mean Sleep SpO2 (%) 94 Min NREM SpO2 (%) 90 Min REM SpO2 (%) 91 Position Supine (min.) 287.7 Position Non-supine (min.) 126.5 LM Index Sleep 14.1 LM Index NREM 14.4 LM Index REM 12.5 Mean Heart Rate (bpm) 62 Min Heart Rate (bpm) 50
--- NOTE | 2016-12-13 11:08 | POLYSOMNOGRAPH REPORT ---
CLINICAL DATA: A 36-year-old male with BMI of 50.[address] Jewell for a sleep study. He has loud snoring and never feels rested. He sleeps for 8 hours at night and then takes a 3 hour nap in the afternoon. He does have significant obesity, lower extremity edema, hypertension, and poorly controlled diabetes. SLEEP ARCHITECTURE: Total recording time was 451 minutes. Total sleep period was 405 minutes. Total sleep time was 319.5 minutes divided between 262 minutes of non-REM sleep and 57.5 minutes of REM sleep. Sleep onset latency was delayed at 46 minutes. REM latency was delayed at 233 minutes. Sleep efficiency was reduced at 71%. Wake after sleep onset was 85.5 minutes. Sleep consisted of stage N1 8%, stage N2 52%, stage N3 22%, and REM 18%. AROUSAL DATA: Fifty-six arousals were recorded for an index of 11 per hour. PLM DATA: Seventy-five limb movements during sleep were noted for an index of 14.1 per hour with arousal index of 3 per hour. RESPIRATORY DATA: There was no evidence of clinically significant sleep apnea seen. The AHI was 0.8. There were 4 hypopneic episodes with a mean duration of 18.4 seconds. OXIMETRY DATA: No significant hypoxemia was seen. Oxygen sampson was 90%. Mean saturation was 94%. EKG: Heart rates ranged from 50 to 81 beats per minute. No arrhythmias were noted. ASSISTANCE COORDINATOR'S COMMENTS: The patient slept in the right, left, and supine positions. Snoring was moderate, rated 3 on a scale of 1 through 5. IMPRESSION: No evidence of clinically significant sleep apnea/hypopnea, nocturnal hypoxemia or abnormal limb movements during sleep to explain this patient's symptoms. RECOMMENDATIONS: The patient should continue to practice good sleep hygiene. Weight loss may be of benefit. MERCEDESD
== END | disposition home or self-care (01) ==
LOC: C.NEUR 16:59
PROVIDERS: ATTEND Internal Medicine
DX: G47.30 Sleep apnea, unspecified (principal)

== ENCOUNTER → 2017-01-04 | Outpatient (CLI) | payer OTHER ==
[2017-01-04 12:36] LABS: ESTIMATED AVERAGE GLUCOSE 209 mg/dl; HA1C FLAG Normal (Normal)
[2017-01-04 12:39] LABS: THYROID STIMULATING HORMONE 2.68 uIu/ml (0.300-4.500)
[2017-01-04 13:25] LABS: URINE APPEARANCE CLEAR (CLEAR); URINE BILIRUBIN NEG (NEG); URINE COLOR YELLOW; URINE NITRITE NEG (NEG); UROBILINOGEN NEG (NEG)
[2017-01-04 13:32] LABS: MANUAL MICROSCOPIC REQUIRED? NO; REVIEW REQ? NO
== END | disposition home or self-care (01) ==
LOC: C.LAB1850 10:46
PROVIDERS: ATTEND Nurse Practitioner Adult Health
DX: Z51.81 Encounter for therapeutic drug level monitoring (principal); E11.65 Type 2 diabetes mellitus with hyperglycemia; E78.5 Hyperlipidemia, unspecified; E03.9 Hypothyroidism, unspecified; N39.0 Urinary tract infection, site not specified; Z79.4 Long term (current) use of insulin

== ENCOUNTER → 2017-03-06 | Outpatient (CLI) | payer OTHER ==
[~2017-03-06] MED LIST changes: +BUPR-266 PO
[2017-03-06 18:16] LABS: THYROID STIMULATING HORMONE 0.476 uIu/ml (0.300-4.500)
== END | disposition home or self-care (01) ==
LOC: C.LAB1850 17:01
PROVIDERS: ATTEND Physician Assistant
DX: E03.9 Hypothyroidism, unspecified (principal); R06.02 Shortness of breath

== ENCOUNTER → 2017-03-07 | Outpatient (CLI) | payer OTHER ==
--- NOTE | 2017-03-07 13:53 | DIAGNOSTIC IMAGING REPORT ---
LUNG IMAGING VQ CLINICAL HISTORY: Chest pain. Dyspnea. COMPARISON: None TECHNIQUE: For the ventilation portion of this exam, 31.8 mCi of DTPA was inhaled at 1:00 PM. Immediately following inhalation, imaging of the chest was carried out in the anterior, posterior, left lateral, right lateral, LPO, RPO, [place] and [place] projections. For the perfusion portion of exam, 5.5 mCi of technetium 99m MAA was injected IV at 1:30 PM. Immediately following injection, imaging of the chest was carried out in the same projections. FINDINGS: Multiple segmental and subsegmental defects involving the right as well as left lung on the perfusion component of the study. The aerosol component of the study shows uniform ventilation throughout. Multiple bilateral ventilation perfusion mismatches are present. IMPRESSION: High probability of pulmonary embolus The above report was generated using voice recognition software. It may contain grammatical, syntax or spelling errors. Electronically signed by: Greyson Carrasquillo M.D. 03/07/2017 1:52 PM Dictated Date/Time: 03/07/2017 1:50 PM
--- NOTE | 2017-03-07 14:01 | DIAGNOSTIC IMAGING REPORT ---
CHEST 2 VIEWS ROUTINE CLINICAL HISTORY: R06.02 Shortness of hehwlcD25.89 Elevated [id number] COMPARISON STUDY: 03/05/2017 FINDINGS: Mild prominence of the central hilar vasculature. No focal infiltrate. Diaphragms are smooth. IMPRESSION: Mild prominence the central hilar vasculature. Lungs otherwise are clear. The above report was generated using voice recognition software. It may contain grammatical, syntax or spelling errors. Electronically signed by: Greyson Carrasquillo M.D. 03/07/2017 2:00 PM Dictated Date/Time: 03/07/2017 1:59 PM
== END | disposition home or self-care (01) ==
LOC: C.NUCL 12:38
PROVIDERS: ATTEND Physician Assistant
DX: R06.02 Shortness of breath (principal); R79.89 Other specified abnormal findings of blood chemistry

== ENCOUNTER → 2017-05-22 | Outpatient (CLI) | payer OTHER ==
[2017-05-22 12:33] LABS: HEMATOCRIT 36.2 % (42-52); HEMOGLOBIN 12.6 g/dL (14.0-18.0); MEAN CELL VOLUME 89.2 fL (80-100); MEAN CORPUSCULAR HGB CONC 34.8 g/dl (32-36); MEAN PLATELET VOLUME 10.4 fL (7.4-10.4); PLATELET COUNT 179 K/uL (130-400); RED CELL DISTRIBUTION WIDTH CV 12.6 % (11.5-14.5); RED CELL DISTRIBUTION WIDTH SD 40.6 fL (36.4-46.3); WHITE BLOOD COUNT 4.78 K/uL (4.8-10.8)
[2017-05-22 13:14] LABS: HEMOGLOBIN A1C 10.7 % (4.5-5.6)
[2017-05-22 13:27] LABS: ALBUMIN 3.3 gm/dl (3.4-5.0); BLOOD UREA NITROGEN 23 mg/dl (7-18); CALCIUM 8.7 mg/dl (8.5-10.1); CARBON DIOXIDE 24 mmol/L (21-32); CREATININE 2.07 mg/dl (0.60-1.40); GLUCOSE 425 mg/dl (70-99); LDL CHOLESTEROL (DIRECT) 132 mg/dl; POTASSIUM 3.3 mmol/L (3.5-5.1); SODIUM 134 mmol/L (136-145)
[2017-05-22 13:32] LABS: PHOSPHORUS 1.2 mg/dl (2.5-4.9)
== END | disposition home or self-care (01) ==
LOC: C.LABPBG 09:24
PROVIDERS: ATTEND Internal Medicine Nephrology
DX: E03.9 Hypothyroidism, unspecified (principal); E78.5 Hyperlipidemia, unspecified; E11.65 Type 2 diabetes mellitus with hyperglycemia; Z79.4 Long term (current) use of insulin; R20.9 Unspecified disturbances of skin sensation; R60.9 Edema, unspecified; E55.9 Vitamin D deficiency, unspecified; I12.9 Hypertensive chronic kidney disease with stage 1 through stage 4 chronic kidney disease, or unspecified chronic kidney disease; N18.3 Chronic kidney disease, stage 3 (moderate)

== ENCOUNTER → 2017-08-01 | Outpatient (CLI) | payer OTHER ==
--- NOTE | 2017-08-01 16:36 | DIAGNOSTIC IMAGING REPORT ---
L-SPINE MIN 4 VIEWS ROUTINE CLINICAL HISTORY: 37 years-old Male presenting with BACK MUSCLE SPASM. TECHNIQUE: Frontal, bilateral oblique, lateral, coned in lateral views of the lumbar spine were obtained. COMPARISON: None. FINDINGS: Normal lumbar lordosis. Vertebral bodies maintain normal height and alignment. Intervertebral disc heights preserved. No advanced degenerative change. No pars defect. No radiographic evidence of osseous neural foraminal narrowing. No compression deformity or subluxation. IMPRESSION: Normal radiographs of the lumbar spine. Electronically signed by: Yash Alejandro M.D. 08/01/2017 4:35 PM Dictated Date/Time: 08/01/2017 4:34 PM
== END | disposition home or self-care (01) ==
LOC: C.RAD1850 15:52
PROVIDERS: ATTEND Internal Medicine
DX: M62.830 Muscle spasm of back (principal)

== ENCOUNTER → 2017-09-19 | Outpatient (CLI) | payer OTHER ==
[~2017-09-19] MED LIST changes: -VNTHFA/IN INH
[2017-09-19 13:58] LABS: HEMATOCRIT 39.1 % (42-52); HEMOGLOBIN 13.8 g/dL (14.0-18.0); MEAN CELL VOLUME 89.3 fL (80-100); MEAN CORPUSCULAR HEMOGLOBIN 31.5 pg (25-34); MEAN CORPUSCULAR HGB CONC 35.3 g/dl (32-36); PLATELET COUNT 207 K/uL (130-400); RED CELL DISTRIBUTION WIDTH CV 12.2 % (11.5-14.5); RED CELL DISTRIBUTION WIDTH SD 39.5 fL (36.4-46.3); WHITE BLOOD COUNT 5.94 K/uL (4.8-10.8)
[2017-09-19 14:54] LABS: ALBUMIN 3.4 gm/dl (3.4-5.0); BLOOD UREA NITROGEN 32 mg/dl (7-18); CALCIUM 8.9 mg/dl (8.5-10.1); CARBON DIOXIDE 25 mmol/L (21-32); CREATININE 2.43 mg/dl (0.60-1.40); GLUCOSE 485 mg/dl (70-99); LDL CHOLESTEROL (DIRECT) 126 mg/dl; PHOSPHORUS 3.1 mg/dl (2.5-4.9); POTASSIUM 4.2 mmol/L (3.5-5.1); SODIUM 131 mmol/L (136-145)
[2017-09-20 06:38] LABS: HEMOGLOBIN A1C 12.7 % (4.5-5.6)
== END | disposition home or self-care (01) ==
LOC: C.LABPBG 09:03
PROVIDERS: ATTEND Internal Medicine Nephrology
DX: R20.9 Unspecified disturbances of skin sensation (principal); E78.5 Hyperlipidemia, unspecified; E11.65 Type 2 diabetes mellitus with hyperglycemia; Z79.4 Long term (current) use of insulin; R80.9 Proteinuria, unspecified

== ENCOUNTER 2018-06-04 12:36 | Observation (INO) ==
[2018-06-04 14:09] LABS: Basophils # (auto) 0.03 K/uL (0-0.2); Basophils % (auto) 0.4 %; Eosinophils # (auto) 0.42 K/uL (0-0.5); Eosinophils % (auto) 6.3 %; Hematocrit (blood only) 38.1 % (42-52); Hemoglobin 13.4 g/dL (14.0-18.0); Immature Granulocytes # (auto) 0.02 K/uL (0.00-0.02); Immature Granulocytes % (auto) 0.3 %; Lymphocytes # (auto) 1.88 K/uL (1.2-3.4); Lymphocytes % (auto) 28.1 %; Mean Corpuscular Hgb Conc 35.2 g/dL (32-36); Mean Corpuscular Volume 88.4 fL (80-100); Mean Platelet Volume 10.7 fL (7.4-10.4); Monocytes # (auto) 0.41 K/uL (0.11-0.59); Monocytes % (auto) 6.1 %; Neutrophils # (auto) 3.94 K/uL (1.4-6.5); Neutrophils % (auto) 58.8 %; Platelet Count 181 K/uL (130-400); RDW Coefficient of Variation 12.5 % (11.5-14.5); RDW Standard Deviation 39.7 fL (36.4-46.3); Red Blood Count 4.31 M/uL (4.7-6.1)
[2018-06-04 14:17] LABS: iSTAT Hemoglobin 12.6 g/dl (14.0-18.0); iSTAT Ionized Calcium 1.22 mmol/l (1.12-1.32)
[2018-06-04 14:27] LABS: Albumin Level 3.4 gm/dl (3.4-5.0); Aspartate Aminotransferase 15 U/L (15-37); BUN Creatinine Ratio 17.1 (10-20); Blood Urea Nitrogen 45 mg/dl (7-18); Calcium 9.4 mg/dl (8.5-10.1); Carbon Dioxide 22 mmol/L (21-32); Chloride 104 mmol/L (98-107); Creatinine Clr Calc Pharmacy 63.1 ml/min; Est GFR (African American) 33.9; Est GFR (Non-African American) 29.3; Glucose 181 mg/dl (70-99); Potassium 4.3 mmol/L (3.5-5.1); Sodium 137 mmol/L (136-145)
[2018-06-04 14:32] LABS: Alanine Aminotransferase 26 U/L (12-78); Albumin Globulin Ratio 0.8 (0.9-2); Alkaline Phosphatase 105 U/L (45-117); Bilirubin,Total 0.4 mg/dl (0.2-1); Creatine Kinase 99 U/L (39-308); Creatine Kinase MB 1.3 ng/ml (0.5-3.6); NT Pro B Type Natriuretic Pept 109 pg/ml (0-450); Total Protein 7.4 gm/dl (6.4-8.2); Troponin I < 0.015 ng/ml (0-0.045)
--- NOTE | 2018-06-04 14:55 | XRay Report ---
SINGLE VIEW CHEST CLINICAL HISTORY: Dyspnea. FINDINGS: An AP, portable, upright chest radiograph is compared to study dated 03/07/2017 and correlat ed with chest CT dated 09/06/2016. The examination is degraded by portable technique and patient rotat ion. The cardiomediastinal silhouette is unremarkable. The lungs and pleural spaces are clear. No pn eumothorax is seen. The bony thorax is grossly intact. IMPRESSION: No active disease in the chest. Electronically signed by: Stevie Moncada M.D. 06/04/2018 2:54 PM
[2018-06-04] MEDS ORDERED: ALBUTEROL 0.083% NEBU SOLN 3 ML VIAL NEB STA ×2 (15:19→16:07)
[2018-06-04] MEDS ORDERED: SODIUM CHLORIDE 0.9% 1000ML 1,000 ML IV ONE (16:07)
--- NOTE | 2018-06-04 17:24 | Nuclear Medicine Report ---
NM pul vent and perfuse CLINICAL HISTORY: 38 years-old Male presenting with Pt c/o SOB, hx of PE. TECHNIQUE: Immediately following the inhalation of 33 mCi of technetium 99 M DTPA for the ventilation scan and the intravenous administration of 5.4 mCi of technetium 99 M MAA for the perfusion scan, an terior, oblique, lateral, and posterior views of the chest were obtained. Modified PIOPED II criteria were utilized for assessment. COMPARISON: 03/07/2017 and chest x-ray performed today on 06/04/2018. FINDINGS: New large mismatch defect in the anterior basal left lower lobe on the perfusion imaging. This is reg ionally normal on ventilation imaging and is new from prior. No additional mismatch defect is evident . Ingested ventilation tracer evident in the stomach and distal esophagus as well as deposited in the pharynx and larynx. Ventilation is normal. Reference: Modified PIOPED II criteria Normal: No perfusion defects. Very low likelihood ratio: Nonsegmental, perfusion defect < chest x-ray lesion, 1-3 small segmental d efects, solitary triple matched defect (< or = 1 segment) in mid or upper lung, stripe sign, solitary large pleural effusion, > or = to 2 matched defects with regionally normal chest x-ray. High likelihood ratio: > or = 2 large mismatch segmental defects. Nondiagnostic: All other findings. IMPRESSION: Nondiagnostic by strict criteria. The single large mismatch defect in the anterobasal left lower lobe is suspicious for pulmonary embolus but does not qualify per modified PIOPED 2 criteria. Chest CTA r ecommended versus lower extremity Doppler if the patient is unable to undergo a contrast-enhanced CT exam. Electronically signed by: Yash Alejandro M.D. 06/04/2018 5:23 PM
[2018-06-04] MEDS ORDERED: ACETAMINOPHEN 325 MG TAB PO PRN (18:54)
[2018-06-04] MEDS ORDERED: GLUCAGON FOR INJ 1 MG VIAL SQ PRN (18:54)
[2018-06-04] MEDS ORDERED: CARBOHYDRATES FOR HYPOGLYCEMIA PO PRN (18:54)
[2018-06-04] MEDS ORDERED: DEXTROSE 50% 50 ML SYRINGE IV PRN (18:54)
[2018-06-04] MEDS ORDERED: GLUCOSE 40% GEL 15 GM TUBE PO PRN (18:54)
[2018-06-04] MEDS ORDERED: GLUCOSE 10 TABS/TUBE PO PRN (18:54)
[2018-06-04] MEDS ORDERED: ALBUT/IPRATROP 3MG/0.5MG NEB 3 ML VIAL NEB PRN (18:54)
[2018-06-04] MEDS ORDERED: PHARMACY GLYCEMIC MGMT CONSULT PRN (19:13)
--- NOTE | 2018-06-04 20:02 | History & Physical Report ---
Date of Service June 04, 2018 Assessment & Plan (1) PE (pulmonary thromboembolism): Despite low d-dimer, V/Q is concerning for new PE. Patient reports compliance with his Eliquis, so presumably this is not due to non-compliance. - Stop Eliquis - Heparin gtt - Lower extremity Dopplers - Hematology consult for VTE despite anticoagulation (2) CKD stage 3 due to type 2 diabetes mellitus: ED provider was concerned that patient's Cr was above baseline; however, in reviewing outpatient nephrology notes, his baseline Cr is often 2.2-2.4. As such, his Cr of 2.6 on admission is high, but does not qualify as DANE. - Hold Lasix (used for lymphedema) - Skip evening dose of lisinopril, but otherwise will continue as normal - Got 1L IV fluids in the ED; will hold off on further - Monitor Cr - Consult nephrology to consider if contrast would be ok to give for a CTA (3) Diabetes: Previously with poor compliance, but now doing better per outpatient notes. Last A1c was 9.8% in 02/2018. - Continue home long-acting 60 units QAM - Sliding scale with mealtime coverage - A1c in the morning - Glycemic consult (4) Hypothyroidism: TSH was 4.4 in 02/2018. No concerning signs/symptoms of hyper-/ hypothyroidism at this time. - Continue home levothyroxine 300 mcg (5) Depression: No overt signs of depression. - Continue home meds History of Present Illness Primary Care Provider: Kareem Jewell MD 38yo M w/ hx of DM, HTN, and CKD who presents for shortness of breath. He reports the shortness of breath began a few days prior and was initially only with exertion. He reports that as the next few days progressed, he became short of breath even at rest. He reports some headache and some back pain, but other denies fevers, chills, chest pain, abdominal pain, nausea, or vomiting. Allergies Allergy/AdvReac Type Severity Reaction Status Date / Time exenatide [From Byetta] AdvReac Vomiting Unverified 06/04/18 13:38 Home Medications Home Medications Medication Instructions Recorded Confirmed Type apixaban [Eliquis] 5 mg PO BID 06/04/18 06/04/18 History atorvastatin 10 mg PO 3XWK 06/04/18 06/04/18 History bupropion HCl 200 mg PO QAM 06/04/18 06/04/18 History ergocalciferol (vitamin D2) 50,000 cap PO MONTHLY 06/04/18 06/04/18 History [Vitamin D2] furosemide 40 mg PO QAM 06/04/18 06/04/18 History insulin detemir U-100 [Levemir 60 units SUBCUT QAM 06/04/18 06/04/18 History FlexTouch U-100 Insuln] insulin lispro [Humalog KwikPen 20 - 40 units SUBCUT UD 06/04/18 06/04/18 History Insulin] levothyroxine [Levoxyl] 300 mg PO QAM 06/04/18 06/04/18 History lisinopril 40 mg PO BID 06/04/18 06/04/18 History metformin 500 mg PO QAM 06/04/18 06/04/18 History metoprolol succinate 50 mg PO HS 06/04/18 06/04/18 History sertraline 100 mg PO HS 06/04/18 06/04/18 History Past Med/Surg History Medical History Hypertension (Chronic) Peripheral neuropathy (Chronic) CKD stage 3 due to type 2 diabetes mellitus (Chronic) Vitamin D deficiency (Chronic) PE (pulmonary thromboembolism) (Resolved) CKD (chronic kidney disease) (Acute) Dyspnea on exertion Diabetes Surgical History History of shoulder surgery (Resolved) Family History Grandfather Hypertension Social History Current Living Situation: Parent Current Living Situation Comment: with dad Other Information That Helps Us Care for You: No Feels Safe at Home: Yes Safety Concerns: Feels Safe At This Time Smoking Status: Former smoker Smoking End Date: 2002 Hx Alcohol Use: No Hx Substance Use: No Beliefs That Will Affect Care: None Preferred Language: Macanese Communication Ability: Effective Roll Repairer Required: No Review of Systems Constitutional: no fever, no chills and no sweats Eyes: no diplopia Ear, Nose, Mouth, Throat: no ear trauma, no nasal discharge and no dental pain Respiratory: + dyspnea; no cough and no chest congestion Cardiovascular: no chest pain, no dyspnea on exertion, no palpitations and no syncope Gastrointestinal: no abdominal pain, no belching, no constipation, no diarrhea/ loose stools, no blood in stools and no melena Musculoskeletal: no back pain, no joint pain and no muscle weakness Integumentary: no rash, no skin ulcer and no erythema Neurologic: no generalized weakness, no loss of sensation, no numbness and no paresthesia Psychiatric: no depression and no anxiety Endocrine: no fatigue, no polydipsia and no polyphagia Physical Exam 2 Vital Signs (Past 24 Hours): Last Vital Signs Temp 36.4 C L 06/04/18 19:55 Pulse 78 06/04/18 19:55 Resp 18 06/04/18 19:55 BP 109/75 06/04/18 19:55 Pulse Ox 98 06/04/18 19:55 Constitutional: WD/WN, vitals as above well developed, well nourished and + morbidly obese; no acute distress Eyes: EOM intact bilaterally; no conjunctival abnormality ENMT: external ear and nose normal, oropharynx normal Neck: trachea midline, no thyromegaly normal visual inspection Respiratory: normal respiratory effort, lungs clear to auscultation no respiratory distress Cardiovascular: RRR, no murmur, no edema Gastrointestinal (Abdomen): Inspection/Auscultation: abdomen normal to inspection; abdomen not distended Musculoskeletal: no cyanosis or clubbing, extremities motor strength 5/5 Skin: no rashes, warm and dry Neurologic: moves all extremities and awake Psychiatric: Orientation: alert, oriented to person and cooperative
[2018-06-04] MEDS: INSULIN ASPART 100 UNITS/ML 3 ML PEN SC SCH (20:10)
[2018-06-04] MEDS ORDERED: Heparin IV Standard *NO* Bolus IV SCH (20:45)
[2018-06-04] MEDS ORDERED: ATORVASTATIN 10 MG TAB PO SCH (21:00)
[2018-06-04] MEDS ORDERED: SERTRALINE HCL 100 MG TABLET PO SCH (21:00)
[2018-06-04] MEDS ORDERED: APIXABAN 5 MG TABLET PO SCH (21:00)
[2018-06-04] MEDS ORDERED: METOPROLOL SUCC 50MG EXT REL TAB PO SCH (21:00)
[2018-06-04] MEDS: HEPARIN SODIUM/DEXTROSE 25,000 UNITS/500 ML BAG IV SCH (21:34)
[2018-06-05] MEDS: INSULIN ASPART 100 UNITS/ML 3 ML PEN SC SCH ×4 (00:28→12:52)
[2018-06-05 05:37] LABS: Hematocrit (blood only) 35.3 % (42-52); Hemoglobin 12.3 g/dL (14.0-18.0); Mean Corpuscular Hgb Conc 34.8 g/dL (32-36); Mean Platelet Volume 10.3 fL (7.4-10.4); Platelet Count 155 K/uL (130-400); RDW Coefficient of Variation 12.6 % (11.5-14.5); RDW Standard Deviation 40.4 fL (36.4-46.3); Red Blood Count 4.01 M/uL (4.7-6.1); White Blood Count 6.08 K/uL (4.8-10.8)
[2018-06-05 06:03] LABS: BUN Creatinine Ratio 18.3 (10-20); Calcium 8.1 mg/dl (8.5-10.1); Creatinine Clr Calc Pharmacy 73.4 ml/min; Est GFR (African American) 40.7; Est GFR (Non-African American) 35.1; Magnesium 1.5 mg/dl (1.8-2.4); Potassium 3.7 mmol/L (3.5-5.1)
[2018-06-05 06:04] LABS: Phosphorus 3.7 mg/dl (2.5-4.9)
[2018-06-05 06:05] LABS: Partial Thromboplastin Ratio 3.1
[2018-06-05 06:18] LABS: Partial Thromboplastin Time 79.5 Seconds (21.0-31.0)
[2018-06-05] MEDS ORDERED: LEVOTHYROXINE SODIUM 150 MCG TABLET PO SCH (06:30)
[2018-06-05 08:50] LABS: Estimated Average Glucose 298 mg/dl
[2018-06-05] MEDS: LISINOPRIL 40 MG TAB PO SCH ×2 (08:58→09:00)
[2018-06-05] MEDS ORDERED: INSULIN DETEMIR FLEXPEN/FLEX TOUCH 100 UNITS/ML 3ML SC SCH (09:00)
[2018-06-05] MEDS ORDERED: LISINOPRIL 40 MG TAB PO SCH (09:00)
[2018-06-05] MEDS ORDERED: BuPROPion SR 100 MG TABCR PO SCH (09:00)
--- NOTE | 2018-06-05 09:04 | Oncology Consultation ---
Date of Consultation June 05, 2018 Assessment & Plan (1) PE (pulmonary thromboembolism): It is not at all clear that Mr. Sebastian has had another PE. His D-dimer is negative and has been positive every other time he's had a DVT. He is also experiencing a worsening of his renal function, which tends to increase D- dimers. His V/Q is non-diagnostic. He also had no tachycardia, hypoxia, or other objective findings to suggest a PE. I would start with lower extremity dopplers as a next step. If they are negative, I would get a CTA, with a plan for pre- and post-hydration to protect his kidneys. If he has truly had a DOAC failure, I would put him back on warfarin. If he has not, I would restart the Eliquis. Present on Admission?: Yes History of Present Illness Reason for Consultation: History of recurrent PEs Chest pain/shortness of breath Attending Physician: Nestor Olivas, History of Present Illness Mr. Sebastian is a 38 year old man with a history of morbid obesity, DM II, CKD , peripheral neuropathy, and recurrent PEs. His first was in June 2012 and did not have a clearly provoking event. At that time, he had a CTA that revealed small MARTA and LLL PEs. His D-dimer was high at that time (>450). He had an extensive hypercoagulable state workup at that time that was negative. He had no evidence of DVT at that time, though a series of venous dopplers in 2011 demonstrated some chronic-appearing change in the left greater saphenous vein suggestive of chronic thrombosis. He had a positive LAC screen, though that was on AC and his other testing for APLS was negative. Still, hewas treated with warfarin until the summer. During that time, he had difficulty controlling his INRs. In November,, he had repeat LAC screen that was negative so warfarin was held. He had an episode of chest pain and shortness of breath in Aug, 2016. His D-dimer was high at that time (>450), but a CTA was negative for PE. He was seen again in February, with MONTE and shortness of breath. He could not have a CTA, but had a high D-dimer (>3000) and a high- suspicion V/Q scan. At that time, he was told he needed lifelong anticoagulation and started Eliquis. He reports good compliance with this therapy. He has not had any recent immobility, though he is unemployed and relatively sedentary. He presented yesterday with increasing exertional dyspnea. His D-dimer was negative (<150) and he was not hypoxic or tachycardic. His creatinine was 2.6, so he could not have a CTA. He had a V/Q scan that was non-diagnostic by strict criteria but was at least suggestive of a new PE. He was put on a heparin drip and he is feeling better now. He denies any leg swelling, tenderness, redness, or pain. Allergies Allergy/AdvReac Type Severity Reaction Status Date / Time exenatide [From Byetta] AdvReac Vomiting Unverified 06/04/18 13:38 Home Medications Home Medications Medication Instructions Recorded Confirmed Type apixaban [Eliquis] 5 mg PO BID 06/04/18 06/04/18 History atorvastatin 10 mg PO 3XWK 06/04/18 06/04/18 History bupropion HCl 200 mg PO QAM 06/04/18 06/04/18 History ergocalciferol (vitamin D2) 50,000 cap PO MONTHLY 06/04/18 06/04/18 History [Vitamin D2] furosemide 40 mg PO QAM 06/04/18 06/04/18 History insulin detemir U-100 [Levemir 60 units SUBCUT QAM 06/04/18 06/04/18 History FlexTouch U-100 Insuln] insulin lispro [Humalog KwikPen 20 - 40 units SUBCUT UD 06/04/18 06/04/18 History Insulin] levothyroxine [Levoxyl] 300 mg PO QAM 06/04/18 06/04/18 History lisinopril 40 mg PO BID 06/04/18 06/04/18 History metformin 500 mg PO QAM 06/04/18 06/04/18 History metoprolol succinate 50 mg PO HS 06/04/18 06/04/18 History sertraline 100 mg PO HS 06/04/18 06/04/18 History Patient History Medical History Hypertension (Chronic) Peripheral neuropathy (Chronic) CKD stage 3 due to type 2 diabetes mellitus (Chronic) Vitamin D deficiency (Chronic) PE (pulmonary thromboembolism) (Resolved) CKD (chronic kidney disease) (Acute) Dyspnea on exertion Diabetes Surgical History History of shoulder surgery (Resolved) Family History Grandfather Hypertension Social History Current Living Situation: Parent Current Living Situation Comment: with dad Other Information That Helps Us Care for You: No Feels Safe at Home: Yes Safety Concerns: Feels Safe At This Time Smoking Status: Former smoker Smoking End Date: 2002 Hx Alcohol Use: No Hx Substance Use: No Beliefs That Will Affect Care: None Preferred Language: Telugu Communication Ability: Effective 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: No Review of Systems Constitutional: no fever and no fatigue Eyes: no worsening vision Respiratory: as per Subjective / HPI Cardiovascular: as per Subjective / HPI Gastrointestinal: no abdominal pain, no nausea, no vomiting and no diarrhea/ loose stools Musculoskeletal: no back pain and no joint pain Integumentary: no rash and no bleeding lesions Hematologic / Lymphatic: no easy bleeding and no lymphadenopathy Physical Exam 2 Vital Signs (Past 24 Hours): Last Vital Signs Temp 36.7 C 06/05/18 07:00 Pulse 72 06/05/18 07:00 Resp 18 06/05/18 07:00 BP 128/74 06/05/18 07:00 Pulse Ox 98 06/05/18 07:00 Constitutional: + morbidly obese; no acute distress Eyes: + anicteric sclerae and EOM intact bilaterally ENMT: external ear and nose normal, oropharynx normal Respiratory: normal respiratory effort, lungs clear to auscultation Cardiovascular: RRR, no murmur, no edema Gastrointestinal (Abdomen): normal bowel sounds, soft, nontender, no hepatosplenomegaly Musculoskeletal: no cyanosis or clubbing, extremities motor strength 5/5 Skin: no rashes, warm and dry Lymphatic: no cervical or axillary lymphadenopathy Results & Data Laboratory Results Laboratory Results - last 24 hr 06/04/18 06/04/18 06/04/18 13:40 13:40 13:40 WBC 6.70 RBC 4.31 L Hgb 13.4 L POC Hgb Hct 38.1 L POC Hct MCV 88.4 MCH 31.1 MCHC 35.2 RDW Std Deviation 39.7 RDW Coeff of Guido 12.5 Plt Count 181 MPV 10.7 H Immature Gran % (Auto) 0.3 Neut % (Auto) 58.8 Lymph % (Auto) 28.1 [place] % (Auto) 6.1 Eos % (Auto) 6.3 Baso % (Auto) 0.4 Immature Gran # (Auto) 0.02 Neut # (Auto) 3.94 Lymph # (Auto) 1.88 [place] # (Auto) 0.41 Eos # (Auto) 0.42 Baso # (Auto) 0.03 APTT PTT Ratio D-Dimer < 190 POC Sodium Sodium 137 POC Potassium Potassium 4.3 POC Chloride Chloride 104 Carbon Dioxide 22 POC Total CO2 Anion Gap 11.0 POC Anion Gap POC BUN BUN 45 H Creatinine 2.65 H POC Creatinine Est Cr Clr Drug Dosing 63.1 Est GFR ( Amer) 33.9 Est GFR (Non-Af Amer) 29.3 BUN/Creatinine Ratio 17.1 Glucose 181 H POC Glucose POC Glucose (other) Estimat Average Glucose Hemoglobin A1c Calcium 9.4 POC Ioniz Calcium [place] Phosphorus Magnesium Total Bilirubin 0.4 AST 15 ALT 26 Alkaline Phosphatase 105 Total Creatine Kinase 99 CK-MB (CK-2) 1.3 CK/CKMB % Calc 1.3 Troponin I < 0.015 NT-Pro-B Natriuret Pep 109 Total Protein 7.4 Albumin 3.4 Globulin 4.0 Albumin/Globulin Ratio 0.8 L Lipase 126 06/04/18 06/04/18 06/05/18 13:48 19:22 00:25 WBC RBC Hgb POC Hgb 12.6 L Hct POC Hct 37 L MCV MCH MCHC RDW Std Deviation RDW Coeff of Guido Plt Count MPV Immature Gran % (Auto) Neut % (Auto) Lymph % (Auto) [place] % (Auto) Eos % (Auto) Baso % (Auto) Immature Gran # (Auto) Neut # (Auto) Lymph # (Auto) [place] # (Auto) Eos # (Auto) Baso # (Auto) APTT PTT Ratio D-Dimer POC Sodium 138 Sodium POC Potassium 4.4 Potassium POC Chloride 103 Chloride Carbon Dioxide POC Total CO2 22 L Anion Gap POC Anion Gap 18.0 POC BUN 39 H BUN Creatinine POC Creatinine 2.6 H Est Cr Clr Drug Dosing Est GFR ( Amer) Est GFR (Non-Af Amer) BUN/Creatinine Ratio Glucose POC Glucose 186 H 190 H POC Glucose (other) 177 H Estimat Average Glucose Hemoglobin A1c Calcium POC Ioniz Calcium [place] 1.22 Phosphorus Magnesium Total Bilirubin AST ALT Alkaline Phosphatase Total Creatine Kinase CK-MB (CK-2) CK/CKMB % Calc Troponin I NT-Pro-B Natriuret Pep Total Protein Albumin Globulin Albumin/Globulin Ratio Lipase 06/05/18 06/05/18 06/05/18 03:56 05:23 05:23 WBC RBC Hgb POC Hgb Hct POC Hct MCV MCH MCHC RDW Std Deviation RDW Coeff of Guido Plt Count MPV Immature Gran % (Auto) Neut % (Auto) Lymph % (Auto) [place] % (Auto) Eos % (Auto) Baso % (Auto) Immature Gran # (Auto) Neut # (Auto) Lymph # (Auto) [place] # (Auto) Eos # (Auto) Baso # (Auto) APTT PTT Ratio D-Dimer POC Sodium Sodium 139 POC Potassium Potassium 3.7 POC Chloride Chloride 106 Carbon Dioxide 24 POC Total CO2 Anion Gap 9.0 POC Anion Gap POC BUN BUN 42 H Creatinine 2.28 H D POC Creatinine Est Cr Clr Drug Dosing 73.4 Est GFR ( Amer) 40.7 Est GFR (Non-Af Amer) 35.1 BUN/Creatinine Ratio 18.3 Glucose 192 H POC Glucose 185 H POC Glucose (other) Estimat Average Glucose 298 Hemoglobin A1c 12.0 H Calcium 8.1 L POC Ioniz Calcium [place] Phosphorus 3.7 Magnesium 1.5 L Total Bilirubin AST ALT Alkaline Phosphatase Total Creatine Kinase CK-MB (CK-2) CK/CKMB % Calc Troponin I NT-Pro-B Natriuret Pep Total Protein Albumin Globulin Albumin/Globulin Ratio Lipase 06/05/18 06/05/18 06/05/18 05:23 05:23 07:46 WBC 6.08 RBC 4.01 L Hgb 12.3 L POC Hgb Hct 35.3 L POC Hct MCV 88.0 MCH 30.7 MCHC 34.8 RDW Std Deviation 40.4 RDW Coeff of Guido 12.6 Plt Count 155 MPV 10.3 Immature Gran % (Auto) Neut % (Auto) Lymph % (Auto) [place] % (Auto) Eos % (Auto) Baso % (Auto) Immature Gran # (Auto) Neut # (Auto) Lymph # (Auto) [place] # (Auto) Eos # (Auto) Baso # (Auto) APTT 79.5 H* PTT Ratio 3.1 D-Dimer POC Sodium Sodium POC Potassium Potassium POC Chloride Chloride Carbon Dioxide POC Total CO2 Anion Gap POC Anion Gap POC BUN BUN Creatinine POC Creatinine Est Cr Clr Drug Dosing Est GFR ( Amer) Est GFR (Non-Af Amer) BUN/Creatinine Ratio Glucose POC Glucose 233 H POC Glucose (other) Estimat Average Glucose Hemoglobin A1c Calcium POC Ioniz Calcium [place] Phosphorus Magnesium Total Bilirubin AST ALT Alkaline Phosphatase Total Creatine Kinase CK-MB (CK-2) CK/CKMB % Calc Troponin I NT-Pro-B Natriuret Pep Total Protein Albumin Globulin Albumin/Globulin Ratio Lipase
--- NOTE | 2018-06-05 10:25 | Nephrology Consultation ---
Date of Consultation June 05, 2018 Assessment & Plan (1) CKD stage 3 due to type 2 diabetes mellitus: (2) PE (pulmonary thromboembolism): (3) Morbid obesity: Per Mcgill is a 38-year-old gentlemen with stage 3 chronic kidney disease, baseline creatinine 2.2-2.5 secondary to diabetic nephropathy, low- grade proteinuria, morbid obesity, history of of PE on anticoagulation admitted with shortness of breath and concern for PE. V/Q scan was suspicious for PE and he was started on heparin drip. He was on Eliquis which has been on hold. Shortness of breath currently resolved and his otherwise asymptomatic. Vital signs stable. Renal function staying relatively stable at his baseline although initially creatinine was slightly high at 2.6, improved to 2.4 this morning, electrolyte acceptable. Has been non-oliguric. --recommend waiting for lower extremity venous Doppler while we continue on heparin drip --if venous Doppler was negative, recommend getting CTA as management needs to be changed if he in fact developed a PEG while being on anticoagulation --continue to hold lisinopril and Lasix for now --if Doppler negative, would start patient on IV normal saline at 100 mL/hour prior to CTA and continue for 1 hour after the study was done and then discontinue --explained to the patient in detail about the risk of contrast induced nephropathy and very minimum risk for progressive worsening of dialysis worsening of renal function needing dialysis. Patient verbalized understanding and agreeable to have CTA if needed --okay to resume lisinopril and Lasix tomorrow Will follow Thank you for the consultation. The (4) Hypertension: History of Present Illness Reason for Consultation: Chronic kidney disease, admitted with questionable PE and need for CTA Attending Physician: Nestor Olivas, History of Present Illness Edgard Mcgill is a 38-year-old gentlemen with past medical history significant for stage III CKD, diabetes, hypertension, morbid obesity and chronic anticoagulation for PE admitted to the hospital with shortness of breath and concern for PE. Nephrology consult was requested to evaluate for risk for contrast induced nephropathy in the setting of possible need for CTA for further evaluation. Electronic medical records are reviewed in detail during patient's visit. Per stage 3 chronic kidney disease baseline creatinine has been 2.2-2.5, secondary to diabetic nephropathy. Has low grade proteinuria. Renal function has been relatively stable lately. Diabetes with proteinuria and nephropathy, seems to be poorly controlled. Well controlled hypertension. He has been on lisinopril and Lasix at home. He presented to the hospital yesterday with progressive shortness of breath from the day prior. On admission chest x-ray was unremarkable. EKG with no acute changes. He had V/Q scan for evaluation for pulmonary embolism which was suspicious for new PE. Lower extremity Doppler was ordered which currently pending. Did not have CTA due to concern for contrast induced nephropathy. He was initially diagnosed with PE in June 2012 and started on Coumadin. Workup for hypercoagulability was unremarkable. He was continued on warfarin until summer. He again had episode of shortness of breath February 2017 this time again V/Q scan was highly suspicious for PE but did not have a CTA due to underlying CKD. He was started on Eliquis and has been on Eliquis since then. On admission yesterday his vital signs are stable blood pressure was controlled not have episode of tachycardia, fever or chills. He was started on heparin drip. Currently he reports shortness of breath totally resolved and otherwise asymptomatic. Allergies Allergy/AdvReac Type Severity Reaction Status Date / Time exenatide [From Byetta] AdvReac Vomiting Unverified 06/04/18 13:38 Home Medications Home Medications Medication Instructions Recorded Confirmed Type apixaban [Eliquis] 5 mg PO BID 06/04/18 06/04/18 History atorvastatin 10 mg PO 3XWK 06/04/18 06/04/18 History bupropion HCl 200 mg PO QAM 06/04/18 06/04/18 History ergocalciferol (vitamin D2) 50,000 cap PO MONTHLY 06/04/18 06/04/18 History [Vitamin D2] furosemide 40 mg PO QAM 06/04/18 06/04/18 History insulin detemir U-100 [Levemir 60 units SUBCUT QAM 06/04/18 06/04/18 History FlexTouch U-100 Insuln] insulin lispro [Humalog KwikPen 20 - 40 units SUBCUT UD 06/04/18 06/04/18 History Insulin] levothyroxine [Levoxyl] 300 mg PO QAM 06/04/18 06/04/18 History lisinopril 40 mg PO BID 06/04/18 06/04/18 History metformin 500 mg PO QAM 06/04/18 06/04/18 History metoprolol succinate 50 mg PO HS 06/04/18 06/04/18 History sertraline 100 mg PO HS 06/04/18 06/04/18 History Patient History Medical History Hypertension (Chronic) Peripheral neuropathy (Chronic) CKD stage 3 due to type 2 diabetes mellitus (Chronic) Vitamin D deficiency (Chronic) PE (pulmonary thromboembolism) (Resolved) CKD (chronic kidney disease) (Acute) Dyspnea on exertion Diabetes Surgical History History of shoulder surgery (Resolved) Family History Grandfather Hypertension Social History Current Living Situation: Parent Current Living Situation Comment: with dad Other Information That Helps Us Care for You: No Feels Safe at Home: Yes Safety Concerns: Feels Safe At This Time Smoking Status: Former smoker Smoking End Date: 2002 Hx Alcohol Use: No Hx Substance Use: No Beliefs That Will Affect Care: None Preferred Language: Nepali Communication Ability: Effective Training Consultant Required: No Review of Systems Detailed review of system was otherwise unremarkable Physical Exam 2 Vital Signs (Past 24 Hours): Last Vital Signs Temp 36.7 C 06/05/18 07:00 Pulse 72 06/05/18 07:00 Resp 18 06/05/18 07:00 BP 128/74 06/05/18 07:00 Pulse Ox 98 06/05/18 07:00 Constitutional: WD/WN, vitals as above Eyes: PERRL, conjunctivae normal, anicteric sclerae Neck: trachea midline, no thyromegaly Respiratory: normal respiratory effort, lungs clear to auscultation Cardiovascular: RRR, no murmur, no edema Gastrointestinal (Abdomen): Inspection/Auscultation: abdomen normal to inspection and normal bowel sounds Skin: no rashes, warm and dry Neurologic: moves all extremities and awake Psychiatric: A+Ox3, euthymic affect
[2018-06-05 13:07] LABS: Partial Thromboplastin Ratio 1.7; Partial Thromboplastin Time 44.8 Seconds (21.0-31.0)
[2018-06-05] MEDS ORDERED: HEPARIN IV BOLUS 5,000 UNITS in SYRINGE 0 ML IV ONE (13:31)
[2018-06-05] MEDS: HEPARIN SODIUM/DEXTROSE 25,000 UNITS/500 ML BAG IV SCH (13:40)
--- NOTE | 2018-06-05 14:35 | Ultrasound Report ---
BILATERAL LOWER EXTREMITY VENOUS DOPPLER HISTORY: Bilateral lower extremity edema Concern for VTE despite anticoagulation COMPARISON STUDY: Duplex venous Doppler study 03/05/2017. FINDINGS: Limited study secondary to patient body habitus. There is normal compressibility, flow, and augmentation within the bilateral lower extremity deep venous systems. IMPRESSION: No sonographic evidence of deep venous thrombosis within the right or left lower extremity. Electronically signed by: Theo Espinosa M.D. 06/05/2018 2:33 PM
[2018-06-05] MEDS ORDERED: SODIUM CHLORIDE 0.9% 500 ML IV SCH (15:00)
[2018-06-05 16:00] VITALS: BP 97/62; PULSE 81; TEMP 98.6; O2SAT 96
[2018-06-05] MEDS ORDERED: OPTIRAY 320 125ml IV PRN (16:06)
--- NOTE | 2018-06-05 16:25 | CT Scan Report ---
CT ANGIOGRAM OF THE CHEST CLINICAL HISTORY: Dyspnea. COMPARISON STUDY: Chest x-ray dated 06/04/2018. Chest CT scans dated 09/06/2016 and 06/15/2012. Pulmonar y VQ scan dated 06/04/2018. TECHNIQUE: Following the IV administration of 90 cc of Optiray 320, CT angiogram of the chest was per formed from the upper abdomen to the thoracic inlet utilizing the pulmonary embolus protocol. Images are reviewed in the axial, sagittal, and coronal planes. 3-D MIPS images are created and assessed. IV contrast was administered without complication. A dose lowering technique was utilized adhering to the principles of ALARA. The examination is degraded by large body habitus, and by streak artifact fr om the body wall abutting the CT gantry. CT DOSE: 678.77 mGy.cm FINDINGS: Thoracic aorta: The thoracic aorta is normal in caliber and demonstrates standard 3-vessel arch anato my. No dissection is seen. Pulmonary vasculature: The pulmonary trunk is normal in caliber. There are no filling defects identif ied in main, lobar, or segmental pulmonary branches to suggest pulmonary embolus. Heart: The heart is normal in size and configuration, and without pericardial effusion. Lungs and pleural spaces: The lungs and pleural spaces are clear. Mediastinum: There is no mediastinal lymphadenopathy. Zenia: Clear. Axillae: There is no axillary lymphadenopathy. Upper abdomen: There is evidence of hepatic steatosis. A small hiatal hernia is noted. Skeletal structures: No lytic or blastic bony lesions are seen. IMPRESSION: 1. There is no evidence of pulmonary embolus in the main, lobar, or segmental pulmonary arteries. 2. The lungs are clear. Electronically signed by: Stevie Moncada M.D. 06/05/2018 4:23 PM
[2018-06-06] MEDS ORDERED: INSULIN ASPART 100 UNITS/ML 3 ML PEN SC SCH
--- NOTE | 2018-06-06 19:10 | Emergency Department Note ---
Entered by Dong Huerta acting as a scribe for Ronnell Smith MD History of Present Illness General Chief complaint: Shortness of Breath/Dyspnea Stated complaint: SOB, HX OF BLOOD CLOTS IN LEGS Time Seen by Provider: 06/04/18 13:11 Source: patient Limitations: no limitations History of Present Illness Provider complaint: SOB Onset (ago): day(s) (2) Location: chest (SOB) Pain Consistency: + other (progressively worsening) Maximum Pain Intensity: 1 Quality: + other (SOB) Treatments prior to arrival: other (Eliquis BID) The patient is a 38 year old male who presents to the Emergency Room with complaints of shortness of breath. The patient states that he first noticed difficulty breathing 2 days ago, which has progressively worsened since. He does have a history of Pulmonary Emboli, and notes that his current symptoms feel very similar to what he experienced then. He is on Eliquis BID, and denies missing any dosages. The patient denies any recent long trips/travel. Home Medications Home Medications Medication Instructions Recorded Confirmed Type apixaban 5 mg PO BID 06/04/18 06/04/18 History atorvastatin 10 mg PO [id number] 06/04/18 06/04/18 History bupropion HCl 200 mg PO QAM 06/04/18 06/04/18 History ergocalciferol (vitamin D2) 50,000 cap PO MONTHLY 06/04/18 06/04/18 History furosemide 40 mg PO QAM 06/04/18 06/04/18 History insulin detemir U-100 60 units SUBCUT QAM 06/04/18 06/04/18 History insulin lispro 20 - 40 units SUBCUT 06/04/18 06/04/18 History levothyroxine 300 mg PO QAM 06/04/18 06/04/18 History lisinopril 40 mg PO BID 06/04/18 06/04/18 History metformin 500 mg PO QAM 06/04/18 06/04/18 History metoprolol succinate 50 mg PO HS 06/04/18 06/04/18 History sertraline 100 mg PO HS 06/04/18 06/04/18 History Allergies Allergy/AdvReac Type Severity Reaction Status Date / Time exenatide [From [place]] AdvReac Vomiting Unverified 06/04/18 13:38 Past Med/Surg History Medical History Hypertension (Chronic) Peripheral neuropathy (Chronic) CKD stage 3 due to type 2 diabetes mellitus (Chronic) Vitamin D deficiency (Chronic) PE (pulmonary thromboembolism) (Resolved) CKD (chronic kidney disease) (Acute) Dyspnea on exertion Diabetes Surgical History History of shoulder surgery (Resolved) Family History Grandfather Hypertension Social History Current Living Situation: Parent Current Living Situation Comment: with dad Other Information That Helps Us Care for You: No Feels Safe at Home: Yes Safety Concerns: Feels Safe At This Time Smoking Status: Former smoker Smoking End Date: 2002 Hx Alcohol Use: No Hx Substance Use: No Beliefs That Will Affect Care: None Preferred Language: Bhutanese Review of Systems See HPI for pertinent positives & negatives. and A total of 10 systems reviewed and were otherwise negative Physical Exam Vital Signs Vital Signs - 24 hr 06/04/18 12:44 06/04/18 13:56 06/04/18 13:57 Temperature 98.2 F Temperature Source Oral Sepsis Recent Fever Within 48 Hours No Sepsis New/Unexplained Change in Mental Status No Sepsis Action Taken by Nursing No Action Required Pulse Rate 82 Pulse Rate [Left Finger] 72 Pulse Rhythm [Left Finger] Pulse Strength [Left Finger] Respiratory Rate 20 20 Respiratory Effort / Characteristics Non-Labored Respiratory Depth Normal Respiratory Pattern Blood Pressure 138/74 Blood Pressure [Left Arm] 123/74 Blood Pressure Mean 95 Blood Pressure Mean [Left Arm] 90 Blood Pressure Position [Left Arm] Pulse Oximetry 98 96 Oxygen Delivery Method Room Air Room Air Room Air 06/04/18 15:30 06/04/18 16:14 Temperature Temperature Source Sepsis Recent Fever Within 48 Hours Sepsis New/Unexplained Change in Mental Status Sepsis Action Taken by Nursing Pulse Rate Pulse Rate [Left Finger] 74 72 Pulse Rhythm [Left Finger] Regular Regular Pulse Strength [Left Finger] Normal Normal Respiratory Rate 20 18 Respiratory Effort / Characteristics Non-Labored Spontaneous Non-Labored Spontaneous Respiratory Depth Normal Normal Respiratory Pattern Regular Regular Blood Pressure Blood Pressure [Left Arm] 149/78 H 121/88 Blood Pressure Mean Blood Pressure Mean [Left Arm] 101 99 Blood Pressure Position [Left Arm] Lying Lying Pulse Oximetry 100 98 Oxygen Delivery Method Room Air Room Air GENERAL: Awake, alert, well-appearing, in no acute distress. BMI of 46.4. HENT: Normocephalic, atraumatic. Oropharynx unremarkable. EYES: Normal conjunctiva. Sclera non-icteric. NECK: Supple. No nuchal rigidity. FROM. No JVD. RESPIRATORY: Clear to auscultation. CARDIAC: Regular rate, normal rhythm. Extremities warm and well perfused. Pulses equal. ABDOMEN: Obese abdomen, Soft, non-distended. No tenderness to palpation. No rebound or guarding. No masses. RECTAL: Deferred. MUSCULOSKELETAL: Chest examination reveals no tenderness. The back is symmetrical on inspection without obvious abnormality. There is no CVA tenderness to palpation. No joint edema. LOWER EXTREMITIES: Calves are equal size bilaterally and non-tender. No edema. No discoloration. NEURO: Normal sensorium. No sensory or motor deficits noted. SKIN: No rash or jaundice noted. Course 1317: Past medical records reviewed. The patient was evaluated in room A10, and a complete history and physical examination were performed. 1650: I reviewed the patient's case with Dr. David ALDANA Resident Hospitalist. He will evaluate the patient for further management. Administered Medications Discontinued Medications Albuterol (Ventolin 0.083% 2.5mg/3ml) 2.5 mg NEB NOW STA Stop: 06/04/18 15:20 Last Admin: 06/04/18 15:30 Dose: 2.5 mg Albuterol (Ventolin 0.083% 2.5mg/3ml) 2.5 mg NEB NOW STA Stop: 06/04/18 16:08 Last Admin: 06/04/18 16:14 Dose: 2.5 mg Apixaban (Eliquis) 5 mg PO BID SAMUEL Stop: 07/04/18 20:59 Last Admin: 06/04/18 20:07 Dose: 5 mg Atorvastatin Calcium (Lipitor) 10 mg PO [id number]@2100 SAMUEL Stop: 07/04/18 20:59 Last Admin: 06/04/18 20:07 Dose: 10 mg Bupropion HCl (Wellbutrin-Sr) 200 mg PO QAM SAMUEL Stop: 07/05/18 08:59 Last Admin: 06/05/18 08:58 Dose: 200 mg Sodium Chloride (Nss 1000ml) 1,000 mls @ 999 mls/hr IV .Q1H1M ONE Stop: 06/04/18 17:07 Last Infusion: 06/04/18 17:17 Dose: 0 mls/hr Admin: 06/04/18 16:13 Dose: 999 mls/hr Heparin Sodium/Dextrose (Heparin Sodium/Dextrose) 25,000 units in 500 mls @ 43 mls/hr IV .[id number] [facility]; Protocol Stop: 07/04/18 20:59 Last Titration: 06/05/18 15:02 Dose: 2,150 units/hr, 43 mls/hr Admin: 06/05/18 13:40 Dose: 2,150 units/hr, 43 mls/hr Titration: 06/05/18 13:40 Dose: 2,150 units/hr, 43 mls/hr Titration: 06/05/18 07:06 Dose: 1,900 units/hr, 38 mls/hr Titration: 06/05/18 06:20 Dose: 1,900 units/hr, 38 mls/hr Titration: 06/04/18 23:13 Dose: Admin: 06/04/18 21:34 Dose: 2,150 units/hr, 43 mls/hr Heparin Sodium (Porcine) 5,000 (units/ Syringe) 5 mls @ 1 mls/min IV ONE ONE Stop: 06/05/18 13:32 Last Admin: 06/05/18 14:34 Dose: 1 mls/min Sodium Chloride (Nss) 500 mls @ 125 mls/hr IV .Q4H [facility]UEL Stop: 07/05/18 14:59 Last Admin: 06/05/18 15:19 Dose: 125 mls/hr Insulin Aspart (Novolog Flexpen) 0 units SC ACHS [facility]; Protocol Stop: 07/04/18 19:44 Last Admin: 06/05/18 12:52 Dose: 16 units Admin: 06/05/18 08:56 Dose: 15 units Admin: 06/04/18 20:10 Dose: 4 units Insulin Aspart (Novolog Flexpen) 0 units SC TODAY@0000,0400 [facility]; Protocol Stop: 06/05/18 04:01 Last Admin: 06/05/18 04:03 Dose: 3 units Admin: 06/05/18 00:28 Dose: 4 units Insulin Detemir (Levemir Flextouch) 60 units SC QAM [facility]; Protocol Stop: 07/05/18 08:59 Last Admin: 06/05/18 08:57 Dose: 60 units Ioversol (Optiray 320 125ml) 119 ml IV ONCE PRN PRN Reason: Interaction Checking Stop: 06/09/18 16:05 Last Admin: 06/05/18 16:07 Dose: 119 ml Levothyroxine Sodium (Synthroid) 300 mcg PO DAILYBB [facility] Stop: 07/05/18 06:29 Last Admin: 06/05/18 06:29 Dose: 300 mcg Lisinopril (Zestril) 40 mg PO BID [facility] Stop: 07/05/18 08:59 Last Admin: 06/05/18 09:00 Dose: Not Given Metoprolol Succinate (Toprol Xl) 50 mg PO [facility] Stop: 07/04/18 20:59 Last Admin: 06/04/18 20:08 Dose: 50 mg Sertraline HCl (Zoloft) 100 mg PO [facility] Stop: 07/04/18 20:59 Last Admin: 06/04/18 20:07 Dose: 100 mg Medical Decision Making Differential Diagnosis Differential diagnosis: Etiologies such as infections, reactive airway disease, COPD, pneumonia, pleural effusion, pulmonary edema, ARDS, pneumothorax, CHF, cardiac ischemia, cardiac tamponade, dysrhythmia, anemia, pulmonary embolism, musculoskeletal, gastrointestinal process, as well as others were entertained. Medical Records Attestation: I reviewed the patient's medical records. Home Medications Current Medication List: was personally reviewed by me Laboratory Data Attestation: I reviewed the patient's lab results. Result diagrams: 06/05/18 05:23 06/05/18 05:23 Lab Results 06/04/18 06/04/18 06/04/18 Range/Units 13:40 13:40 13:40 WBC 6.70 (4.8-10.8) K/uL RBC 4.31 L (4.7-6.1) M/uL Hgb 13.4 L (14.0-18.0) g/dL POC Hgb (14.0-18.0) g/dl Hct 38.1 L (42-52) % POC Hct (42-52) % MCV 88.4 (80-100) fL MCH 31.1 (25-34) pg MCHC 35.2 (32-36) g/dL RDW Std Deviation 39.7 (36.4-46.3) fL RDW Coeff of Guido 12.5 (11.5-14.5) % Plt Count 181 (130-400) K/uL MPV 10.7 H (7.4-10.4) fL Immature Gran % (Auto) 0.3 % Neut % (Auto) 58.8 % Lymph % (Auto) 28.1 % [place] % (Auto) 6.1 % Eos % (Auto) 6.3 % Baso % (Auto) 0.4 % Immature Gran # (Auto) 0.02 (0.00-0.02) K/uL Neut # (Auto) 3.94 (1.4-6.5) K/uL Lymph # (Auto) 1.88 (1.2-3.4) K/uL [place] # (Auto) 0.41 (0.11-0.59) K/uL Eos # (Auto) 0.42 (0-0.5) K/uL Baso # (Auto) 0.03 (0-0.2) K/uL APTT (21.0-31.0) Seconds PTT Ratio D-Dimer < 190 (0-500) ug/L FEU POC Sodium (135-144) mEq/L Sodium 137 (136-145) mmol/L POC Potassium (3.3-5.0) mEq/L Potassium 4.3 (3.5-5.1) mmol/L POC Chloride (101-112) mEq/L Chloride 104 (98-107) mmol/L Carbon Dioxide 22 (21-32) mmol/L POC Total CO2 (24-31) mEq/l Anion Gap 11.0 (3-11) POC Anion Gap (16-25) mmol/L POC BUN (7-18) mg/dl BUN 45 H (7-18) mg/dl Creatinine 2.65 H (0.6-1.4) mg/dl POC Creatinine (0.6-1.3) mg/dl Est Cr Clr Drug Dosing 63.1 ml/min Est GFR ( Amer) 33.9 Est GFR (Non-Af Amer) 29.3 BUN/Creatinine Ratio 17.1 (10-20) Glucose 181 H (70-99) mg/dl POC Glucose (70-99) POC Glucose (other) (70-99) mg/dl Estimat Average Glucose mg/dl Hemoglobin A1c (4.5-5.6) % Calcium 9.4 (8.5-10.1) mg/dl POC Ioniz Calcium Kar[place] (1.12-1.32) mmol/l Phosphorus (2.5-4.9) mg/dl Magnesium (1.8-2.4) mg/dl Total Bilirubin 0.4 (0.2-1) mg/dl AST 15 (15-37) U/L ALT 26 (12-78) U/L Alkaline Phosphatase 105 (45-117) U/L Total Creatine Kinase 99 (39-308) U/L CK-MB (CK-2) 1.3 (0.5-3.6) ng/ml CK/CKMB % Calc 1.3 (0-3.0) Troponin I < 0.015 (0-0.045) ng/ml NT-Pro-B Natriuret Pep 109 (0-450) pg/ml Total Protein 7.4 (6.4-8.2) gm/dl Albumin 3.4 (3.4-5.0) gm/dl Globulin 4.0 (2.5-4.0) gm/dl Albumin/Globulin Ratio 0.8 L (0.9-2) Lipase 126 (73-393) U/L 06/04/18 06/04/18 06/05/18 Range/Units 13:48 19:22 00:25 WBC (4.8-10.8) K/uL RBC (4.7-6.1) M/uL Hgb (14.0-18.0) g/dL POC Hgb 12.6 L (14.0-18.0) g/dl Hct (42-52) % POC Hct 37 L (42-52) % MCV (80-100) fL MCH (25-34) pg MCHC (32-36) g/dL RDW Std Deviation (36.4-46.3) fL RDW Coeff of Guido (11.5-14.5) % Plt Count (130-400) K/uL MPV (7.4-10.4) fL Immature Gran % (Auto) % Neut % (Auto) % Lymph % (Auto) % [place] % (Auto) % Eos % (Auto) % Baso % (Auto) % Immature Gran # (Auto) (0.00-0.02) K/uL Neut # (Auto) (1.4-6.5) K/uL Lymph # (Auto) (1.2-3.4) K/uL [place] # (Auto) (0.11-0.59) K/uL Eos # (Auto) (0-0.5) K/uL Baso # (Auto) (0-0.2) K/uL APTT (21.0-31.0) Seconds PTT Ratio D-Dimer (0-500) ug/L FEU POC Sodium 138 (135-144) mEq/L Sodium (136-145) mmol/L POC Potassium 4.4 (3.3-5.0) mEq/L Potassium (3.5-5.1) mmol/L POC Chloride 103 (101-112) mEq/L Chloride (98-107) mmol/L Carbon Dioxide (21-32) mmol/L POC Total CO2 22 L (24-31) mEq/l Anion Gap (3-11) POC Anion Gap 18.0 (16-25) mmol/L POC BUN 39 H (7-18) mg/dl BUN (7-18) mg/dl Creatinine (0.6-1.4) mg/dl POC Creatinine 2.6 H (0.6-1.3) mg/dl Est Cr Clr Drug Dosing ml/min Est GFR ( Amer) Est GFR (Non-Af Amer) BUN/Creatinine Ratio (10-20) Glucose (70-99) mg/dl POC Glucose 186 H 190 H (70-99) POC Glucose (other) 177 H (70-99) mg/dl Estimat Average Glucose mg/dl Hemoglobin A1c (4.5-5.6) % Calcium (8.5-10.1) mg/dl POC Ioniz Calcium [place] 1.22 (1.12-1.32) mmol/l Phosphorus (2.5-4.9) mg/dl Magnesium (1.8-2.4) mg/dl Total Bilirubin (0.2-1) mg/dl AST (15-37) U/L ALT (12-78) U/L Alkaline Phosphatase (45-117) U/L Total Creatine Kinase (39-308) U/L CK-MB (CK-2) (0.5-3.6) ng/ml CK/CKMB % Calc (0-3.0) Troponin I (0-0.045) ng/ml NT-Pro-B Natriuret Pep (0-450) pg/ml Total Protein (6.4-8.2) gm/dl Albumin (3.4-5.0) gm/dl Globulin (2.5-4.0) gm/dl Albumin/Globulin Ratio (0.9-2) Lipase (73-393) U/L 06/05/18 06/05/18 06/05/18 Range/Units 03:56 05:23 05:23 WBC (4.8-10.8) K/uL RBC (4.7-6.1) M/uL Hgb (14.0-18.0) g/dL POC Hgb (14.0-18.0) g/dl Hct (42-52) % POC Hct (42-52) % MCV (80-100) fL MCH (25-34) pg MCHC (32-36) g/dL RDW Std Deviation (36.4-46.3) fL RDW Coeff of Guido (11.5-14.5) % Plt Count (130-400) K/uL MPV (7.4-10.4) fL Immature Gran % (Auto) % Neut % (Auto) % Lymph % (Auto) % [place] % (Auto) % Eos % (Auto) % Baso % (Auto) % Immature Gran # (Auto) (0.00-0.02) K/uL Neut # (Auto) (1.4-6.5) K/uL Lymph # (Auto) (1.2-3.4) K/uL [place] # (Auto) (0.11-0.59) K/uL Eos # (Auto) (0-0.5) K/uL Baso # (Auto) (0-0.2) K/uL APTT (21.0-31.0) Seconds PTT Ratio D-Dimer (0-500) ug/L FEU POC Sodium (135-144) mEq/L Sodium 139 (136-145) mmol/L POC Potassium (3.3-5.0) mEq/L Potassium 3.7 (3.5-5.1) mmol/L POC Chloride (101-112) mEq/L Chloride 106 (98-107) mmol/L Carbon Dioxide 24 (21-32) mmol/L POC Total CO2 (24-31) mEq/l Anion Gap 9.0 (3-11) POC Anion Gap (16-25) mmol/L POC BUN (7-18) mg/dl BUN 42 H (7-18) mg/dl Creatinine 2.28 H D (0.6-1.4) mg/dl POC Creatinine (0.6-1.3) mg/dl Est Cr Clr Drug Dosing 73.4 ml/min Est GFR ( Amer) 40.7 Est GFR (Non-Af Amer) 35.1 BUN/Creatinine Ratio 18.3 (10-20) Glucose 192 H (70-99) mg/dl POC Glucose 185 H (70-99) POC Glucose (other) (70-99) mg/dl Estimat Average Glucose 298 mg/dl Hemoglobin A1c 12.0 H (4.5-5.6) % Calcium 8.1 L (8.5-10.1) mg/dl POC Ioniz Calcium [place] (1.12-1.32) mmol/l Phosphorus 3.7 (2.5-4.9) mg/dl Magnesium 1.5 L (1.8-2.4) mg/dl Total Bilirubin (0.2-1) mg/dl AST (15-37) U/L ALT (12-78) U/L Alkaline Phosphatase (45-117) U/L Total Creatine Kinase (39-308) U/L CK-MB (CK-2) (0.5-3.6) ng/ml CK/CKMB % Calc (0-3.0) Troponin I (0-0.045) ng/ml NT-Pro-B Natriuret Pep (0-450) pg/ml Total Protein (6.4-8.2) gm/dl Albumin (3.4-5.0) gm/dl Globulin (2.5-4.0) gm/dl Albumin/Globulin Ratio (0.9-2) Lipase (73-393) U/L 06/05/18 06/05/18 06/05/18 Range/Units 05:23 05:23 07:46 WBC 6.08 (4.8-10.8) K/uL RBC 4.01 L (4.7-6.1) M/uL Hgb 12.3 L (14.0-18.0) g/dL POC Hgb (14.0-18.0) g/dl Hct 35.3 L (42-52) % POC Hct (42-52) % MCV 88.0 (80-100) fL MCH 30.7 (25-34) pg MCHC 34.8 (32-36) g/dL RDW Std Deviation 40.4 (36.4-46.3) fL RDW Coeff of Guido 12.6 (11.5-14.5) % Plt Count 155 (130-400) K/uL MPV 10.3 (7.4-10.4) fL Immature Gran % (Auto) % Neut % (Auto) % Lymph % (Auto) % [place] % (Auto) % Eos % (Auto) % Baso % (Auto) % Immature Gran # (Auto) (0.00-0.02) K/uL Neut # (Auto) (1.4-6.5) K/uL Lymph # (Auto) (1.2-3.4) K/uL [place] # (Auto) (0.11-0.59) K/uL Eos # (Auto) (0-0.5) K/uL Baso # (Auto) (0-0.2) K/uL APTT 79.5 H* (21.0-31.0) Seconds PTT Ratio 3.1 D-Dimer (0-500) ug/L FEU POC Sodium (135-144) mEq/L Sodium (136-145) mmol/L POC Potassium (3.3-5.0) mEq/L Potassium (3.5-5.1) mmol/L POC Chloride (101-112) mEq/L Chloride (98-107) mmol/L Carbon Dioxide (21-32) mmol/L POC Total CO2 (24-31) mEq/l Anion Gap (3-11) POC Anion Gap (16-25) mmol/L POC BUN (7-18) mg/dl BUN (7-18) mg/dl Creatinine (0.6-1.4) mg/dl POC Creatinine (0.6-1.3) mg/dl Est Cr Clr Drug Dosing ml/min Est GFR ( Amer) Est GFR (Non-Af Amer) BUN/Creatinine Ratio (10-20) Glucose (70-99) mg/dl POC Glucose 233 H (70-99) POC Glucose (other) (70-99) mg/dl Estimat Average Glucose mg/dl Hemoglobin A1c (4.5-5.6) % Calcium (8.5-10.1) mg/dl POC Ioniz Calcium [place] (1.12-1.32) mmol/l Phosphorus (2.5-4.9) mg/dl Magnesium (1.8-2.4) mg/dl Total Bilirubin (0.2-1) mg/dl AST (15-37) U/L ALT (12-78) U/L Alkaline Phosphatase (45-117) U/L Total Creatine Kinase (39-308) U/L CK-MB (CK-2) (0.5-3.6) ng/ml CK/CKMB % Calc (0-3.0) Troponin I (0-0.045) ng/ml NT-Pro-B Natriuret Pep (0-450) pg/ml Total Protein (6.4-8.2) gm/dl Albumin (3.4-5.0) gm/dl Globulin (2.5-4.0) gm/dl Albumin/Globulin Ratio (0.9-2) Lipase (73-393) U/L 06/05/18 06/05/18 06/05/18 Range/Units 11:44 12:43 16:43 WBC (4.8-10.8) K/uL RBC (4.7-6.1) M/uL Hgb (14.0-18.0) g/dL POC Hgb (14.0-18.0) g/dl Hct (42-52) % POC Hct (42-52) % MCV (80-100) fL MCH (25-34) pg MCHC (32-36) g/dL RDW Std Deviation (36.4-46.3) fL RDW Coeff of Guido (11.5-14.5) % Plt Count (130-400) K/uL MPV (7.4-10.4) fL Immature Gran % (Auto) % Neut % (Auto) % Lymph % (Auto) % [place] % (Auto) % Eos % (Auto) % Baso % (Auto) % Immature Gran # (Auto) (0.00-0.02) K/uL Neut # (Auto) (1.4-6.5) K/uL Lymph # (Auto) (1.2-3.4) K/uL [place] # (Auto) (0.11-0.59) K/uL Eos # (Auto) (0-0.5) K/uL Baso # (Auto) (0-0.2) K/uL APTT 44.8 H (21.0-31.0) Seconds PTT Ratio 1.7 D-Dimer (0-500) ug/L FEU POC Sodium (135-144) mEq/L Sodium (136-145) mmol/L POC Potassium (3.3-5.0) mEq/L Potassium (3.5-5.1) mmol/L POC Chloride (101-112) mEq/L Chloride (98-107) mmol/L Carbon Dioxide (21-32) mmol/L POC Total CO2 (24-31) mEq/l Anion Gap (3-11) POC Anion Gap (16-25) mmol/L POC BUN (7-18) mg/dl BUN (7-18) mg/dl Creatinine (0.6-1.4) mg/dl POC Creatinine (0.6-1.3) mg/dl Est Cr Clr Drug Dosing ml/min Est GFR ( Amer) Est GFR (Non-Af Amer) BUN/Creatinine Ratio (10-20) Glucose (70-99) mg/dl POC Glucose 237 H 186 H (70-99) POC Glucose (other) (70-99) mg/dl Estimat Average Glucose mg/dl Hemoglobin A1c (4.5-5.6) % Calcium (8.5-10.1) mg/dl POC Ioniz Calcium [place] (1.12-1.32) mmol/l Phosphorus (2.5-4.9) mg/dl Magnesium (1.8-2.4) mg/dl Total Bilirubin (0.2-1) mg/dl AST (15-37) U/L ALT (12-78) U/L Alkaline Phosphatase (45-117) U/L Total Creatine Kinase (39-308) U/L CK-MB (CK-2) (0.5-3.6) ng/ml CK/CKMB % Calc (0-3.0) Troponin I (0-0.045) ng/ml NT-Pro-B Natriuret Pep (0-450) pg/ml Total Protein (6.4-8.2) gm/dl Albumin (3.4-5.0) gm/dl Globulin (2.5-4.0) gm/dl Albumin/Globulin Ratio (0.9-2) Lipase (73-393) U/L Imaging Data Attestation: I personally reviewed and interpreted this imaging study as follows : Radiologist's Impression: SINGLE VIEW CHEST CLINICAL HISTORY: Dyspnea. FINDINGS: An AP, portable, upright chest radiograph is compared to study dated 03/07/2017 and correlated with chest CT dated 09/06/2016. The examination is degraded by portable technique and patient rotation. The cardiomediastinal silhouette is unremarkable. The lungs and pleural spaces are clear. No pneumothorax is seen. The bony thorax is grossly intact. IMPRESSION: No active disease in the chest. Electronically signed by: Stevie Moncada M.D. 06/04/2018 2:54 PM ECG Data Attestation: I personally reviewed and interpreted this ECG as follows: Indication: SOB/dyspnea Rate (beats per minute): 74 Rhythm: normal sinus Findings: no ST depression, no ST elevation and no acute ischemic change Blood Pressure Blood Pressure Findings: Elevated blood pressure Blood Pressure Disposition: elevated BP felt to be situational MDM Narrative --This is a 38-year-old male who presents emergency department complaining of shortness of breath. The patient is also having back pain. He relates that he had PEs last time this happened. I will note that the patient has a normal d- dimer however his kidney function is significantly increased. Because of this I did discuss the case with the hospitalist service who agreed to see the patient. Patient and family were in agreement with the treatment plan. Impression & Plan Acute renal failure Discharge Plan Visit Data *Final* Discharge Date/Time: 06/04/18 18:20 Chief Complaint: Shortness of Breath/Dyspnea Stated Complaint: SOB, HX OF BLOOD CLOTS IN LEGS ED Provider: Ronnell Smith Discharge Problem: Acute renal failure Patient Disposition: Admitted As Inpatient Condition: Good Discharge Instructions Interventions: ED Discharge Assessment Last Done: 06/04/18 18:20 The scribe's documentation has been prepared under my direction and personally reviewed by me in its entirety. I confirm that the note above accurately reflects all work, treatment, procedures, and medical decision making performed by me.
--- NOTE | 2018-06-07 07:26 | Discharge Summary ---
Date of Service June 05, 2018 Admission HPI Per Admitting Provider 38yo M w/ hx of DM, HTN, and CKD who presents for shortness of breath. He reports the shortness of breath began a few days prior and was initially only with exertion. He reports that as the next few days progressed, he became short of breath even at rest. He reports some headache and some back pain, but other denies fevers, chills, chest pain, abdominal pain, nausea, or vomiting. Admission Exam Per Admitting Provider Constitutional: WD/WN, vitals as above well developed, well nourished and + morbidly obese; no acute distress Eyes: EOM intact bilaterally; no conjunctival abnormality ENMT: external ear and nose normal, oropharynx normal Neck: trachea midline, no thyromegaly normal visual inspection Respiratory: normal respiratory effort, lungs clear to auscultation no respiratory distress Cardiovascular: RRR, no murmur, no edema Gastrointestinal (Abdomen): Inspection/Auscultation: abdomen normal to inspection; abdomen not distended Musculoskeletal: no cyanosis or clubbing, extremities motor strength 5/5 Skin: no rashes, warm and dry Neurologic: moves all extremities and awake Psychiatric: Orientation: alert, oriented to person and cooperative Principal Diagnosis Shortness of breath Discharge Exam Constitutional WD/WN, vitals as above + obese Eyes PERRL, conjunctivae normal, anicteric sclerae ENMT external ear and nose normal, oropharynx normal Neck trachea midline, no thyromegaly Respiratory normal respiratory effort, lungs clear to auscultation Cardiovascular RRR, no murmur, no edema Gastrointestinal (Abdomen) normal bowel sounds, soft, nontender, no hepatosplenomegaly Musculoskeletal no cyanosis or clubbing, extremities motor strength 5/5 Skin no rashes, warm and dry Neurologic patellar DTR's 2+ bilat, sensation intact and PERRL, EOMI, accommodation nl, no face palsy, no dysarthria Psychiatric A+Ox3, euthymic affect Lymphatic no cervical or axillary lymphadenopathy Discharge Data Allergies Allergy/AdvReac Type Severity Reaction Status Date / Time exenatide [From [place]] AdvReac Vomiting Unverified 06/04/18 13:38 Consultations 06/04/18 16:09 ED Decision to Admit Stat 06/04/18 20:32 Consult Hematology Routine Consult Nephrology Routine Ordered Studies 06/05/18 US venous doppler LE BI Routine 06/05/18 16:00 CT angio chest PE protocol Urgent Hospital Course (1) PE (pulmonary thromboembolism): Possible pulmonary embolism, subsequently ruled out with CTA chest patient presented with shortness of breath, but not chest pain and no tachycardia D dimer was negative at < 190 and the patient was compliant on Eliquis V/Q scan was obtained, a single large mismatch present in left lower lobe, concerning for PE was non-diagnostic by strict criteria Patient placed on heparin drip with concerns that he could have had a PE on Eliquis Venous dopplers negative for DVT CTA chest obtained after giving NSS prior to contrast CTA negative for PE patient discharged to home after allowing the NSS to run at 100cc/hr for two hours post test resume Eliquis to treat prior PE (2) CKD stage 3 due to type 2 diabetes mellitus: Cr was 2.6 on admission, baseline 2.2-2.4 so Cr slightly higher but this is NOT DANE treated with IV fluids, Cr improved to 2.28, making adequate urine his Lasix and Lisinopril were held treated with NSS at 100cc/hr prior to CTA and afterwards instructed to resume Lasix and Lisinopril on 06/06 (3) Diabetes: Previously with poor compliance, but now doing better per outpatient notes. Last A1c was 9.8% in 02/2018. - Continue home long-acting 60 units QAM - Sliding scale with mealtime coverage instructed to hold Metformin for three days due to receiving IV contrast (4) Hypothyroidism: TSH was 4.4 in 02/2018. No concerning signs/symptoms of hyper-/ hypothyroidism at this time. - Continue home levothyroxine 300 mcg (5) Depression: No overt signs of depression. - Continue home meds Total Time Total Time Spent Total Time Spent (In Minutes): 35 minutes Total Time Includes: Examination of the Patient, Discharge Planning, Medication Reconciliation and Communication With Other Providers (Dr. Guerrero and Dr. Gallegos) Discharge Plan Discharge Items Patient Disposition: Home - Self-Care Reason For Visit: SOB Discharge Diagnosis: Shortness of breath, resolved Condition: Good Discharge Goals: Improve function and Increase independence Activity: Resume your previous activity Non-emergency contact: Primary Care Provider Call non-emergency contact if: you have any medication questions, your symptoms worsen and you have a fever Follow-up/Referrals: ProKareem MD [Primary Care Provider] - 06/10/18 11:30 am (Please, follow up at Dr. Jewell's office with [facility] on SaturdayJune 10 at 11:30 am. *If you need to change this appointment, call their office at [phone].) Diet: Carb Consistent or DM2 Addtl Provider Instructions: Medications: no changes - LISINOPRIL and LASIX: resume tomorrow, do not take Lisinopril tonight - METFORMIN: hold until Friday 06/09 due to IV contrast In summary, you had shortness of breath that improved over night initially there were concerns for a PE on VQ scan but not definitive test venous dopplers negative for DVT CT chest negative for PE thus ruling out a new PE continue taking Eliquis as previously prescribed Follow up with Dr. Jewell on 06/10 Prescriptions: Continue metformin 500 mg tablet 500 mg PO QAM RF: 0 atorvastatin 10 mg tablet 10 mg PO 3XWK RF: 0 sertraline 100 mg tablet 100 mg PO HS RF: 0 levothyroxine 150 mcg tablet 300 mg PO QAM RF: 0 furosemide 20 mg tablet 40 mg PO QAM RF: 0 metoprolol succinate 25 mg tablet extended release 24 hr 50 mg PO HS RF: 0 ergocalciferol (vitamin D2) 50,000 unit capsule 50,000 cap PO MONTHLY RF: 0 lisinopril 40 mg tablet 40 mg PO BID RF: 0 bupropion HCl 200 mg tablet sustained-release 12 hr 200 mg PO QAM RF: 0 insulin lispro 100 unit/mL insulin pen 20 - 40 units subcut UD RF: 0 insulin detemir U-100 100 unit/mL (3 mL) insulin pen 60 units subcut QAM RF: 0 apixaban 5 mg tablet 5 mg PO BID RF: 0 Stand-Alone Forms: [facility] Discharge Orders: Discharge Order (Routine); Ordered 06/05/18 Ordered By: Nestor Olivas Admission Data Admit Date/Time: 06/04/18 17:59 Attending Provider: Nestor Olivas Admit Provider: Tommy Villalta Primary Care Provider: Kareem Jewell Other Providers: Tommy Villalta ; Abhay Guerrero ; Mohsen Rodriguez Service: Medical Other Interventions: Discharge Summary Assessment (RN) Last Done: 06/05/18 16:36 DC Date/Time DO NOT enter until pt leaves facility: 06/05/18 18:15
== END 2018-06-05 18:15 | disposition home or self-care (01) ==
LOC: 4W 12:36 → ED 12:36 → SUATTDRO 17:59 → 4W 18:20
DX: Z79.4 Long term (current) use of insulin; E11.22 Type 2 diabetes mellitus with diabetic chronic kidney disease; N17.9 Acute kidney failure, unspecified; R06.02 Shortness of breath; Z82.49 Family history of ischemic heart disease and other diseases of the circulatory system; I12.9 Hypertensive chronic kidney disease with stage 1 through stage 4 chronic kidney disease, or unspecified chronic kidney disease; Z79.899 Other long term (current) drug therapy; Z86.718 Personal history of other venous thrombosis and embolism; N18.3 Chronic kidney disease, stage 3 (moderate); E55.9 Vitamin D deficiency, unspecified

== ENCOUNTER 2021-02-17 15:18 | Inpatient (IN) ==
[2021-02-17] MEDS ORDERED: KETOROLAC 30 MG/ML VIAL IV ONE (16:19)
[2021-02-17] MEDS ORDERED: ALBUTEROL 0.083% NEBU SOLN 3 ML VIAL NEB STA (16:19)
[2021-02-17] MEDS ORDERED: methylPREDNISolone 125 MG/2 ML VIAL IV STA (16:19)
[2021-02-17] MEDS ORDERED: SODIUM CHLORIDE 0.9% 1000ML 1,000 ML IV ONE ×2 (16:19→20:59)
[2021-02-17] MEDS ORDERED: ACETAMINOPHEN 500 MG TAB PO STA (16:19)
[2021-02-17 16:45] LABS: Eosinophils # (auto) 0.08 K/uL (0-0.5); Eosinophils % (auto) 2.5 %; Hematocrit (blood only) 34.2 % (42-52); Hemoglobin 12.1 g/dL (14.0-18.0); Immature Granulocytes # (auto) 0.01 K/uL (0.00-0.02); Immature Granulocytes % (auto) 0.3 %; Lymphocytes # (auto) 0.95 K/uL (1.2-3.4); Lymphocytes % (auto) 29.8 %; Mean Corpuscular Hgb Conc 35.4 g/dL (32-36); Mean Corpuscular Volume 90.5 fL (80-100); Monocytes # (auto) 0.33 K/uL (0.11-0.59); Monocytes % (auto) 10.3 %; Neutrophils # (auto) 1.82 K/uL (1.4-6.5); Neutrophils % (auto) 57.1 %; Platelet Count 112 K/uL (130-400); RDW Coefficient of Variation 12.9 % (11.5-14.5); RDW Standard Deviation 42.5 fL (36.4-46.3); Red Blood Count 3.78 M/uL (4.7-6.1); White Blood Count 3.19 K/uL (4.8-10.8)
--- NOTE | 2021-02-17 16:51 | Emergency Department Note ---
History of Present Illness General Chief complaint: Shortness of Breath/Dyspnea Stated complaint: COV+ OF 02/16..COUGH, SOB History of Present Illness Maximum Pain Intensity: 5 This patient is a pleasant 41-year-old male who presents emergency department via private vehicle for evaluation of a upper respiratory tract infection and shortness of breath that has gotten progressively worse over the last week. The patient reports that he tested positive for Covid last night. The patient was fully vaccinated with both Pfizer vaccines. He reports a productive cough. Body aches also noted. He denies any chest pain. He has had body aches for which he has been taking ibuprofen. He is also been taking Mucinex with minimal relief of his symptoms. The patient is having a difficult time ambulating due to the shortness of breath, which is why he comes to the emergency department for evalu ation today. His father also recently tested positive. Home Medications Medication Instructions Recorded Confirmed Type blood glucose control, normal #1 ea 01/07/19 02/09/21 History (OneTouch Ultra Control) blood sugar diagnostic (OneTouch #10 ea 01/07/19 02/09/21 History Verio test strips) blood-glucose meter (OneTouch #1 ea 01/07/19 02/09/21 History Verio Flex meter) lancets 33 gauge (OneTouch Delica #100 ea 01/07/19 02/09/21 History Lancets) ondansetron HCl 4 mg tablet 4 mg PO QID PRN #90 tab 03/31/19 02/17/21 Rx Humalog KwikPen Insulin 100 20 unit SQ BID #15 ml NS 04/21/20 02/17/21 Rx unit/mL subcutaneous (insulin lispro) apixaban 5 mg tablet 5 mg PO BID #180 tab 06/01/20 02/17/21 Rx levothyroxine 150 mcg tablet 300 mcg PO DAILY 90 Days #180 tab 10/11/20 02/17/21 Rx (Levoxyl) pen needle, diabetic, safety 30 #300 ea 10/14/20 02/09/21 Rx gauge x 1/3" (Novofine Autocover) cetirizine 10 mg tablet (Zyrtec) 10 mg PO QAM #30 tab 12/02/20 02/17/21 Rx metoprolol succinate 25 mg 50 mg PO HS 90 Days #180 tab 12/02/20 02/17/21 Rx tablet,extended release 24 hr sertraline 100 mg tablet 100 mg PO HS #90 tab 12/02/20 02/17/21 Rx ketoconazole 2 % shampoo 1 applic TOP DAILY PRN #120 ml 12/12/20 02/17/21 Rx bupropion HCl 200 mg tablet,12 hr 200 mg PO QAM #30 ea 01/12/21 02/17/21 Rx sustained-release ergocalciferol (vitamin D2) 1,250 50,000 unit PO MONTHLY #4 cap 01/12/21 02/17/21 Rx mcg (50,000 unit) capsule phentermine 15 mg capsule 15 mg PO QAM #30 cap 01/12/21 02/17/21 Rx atorvastatin 10 mg tablet 10 mg PO .COMPLEX tab 02/09/21 02/17/21 History calcitriol 0.5 mcg capsule 0.5 mcg PO .COMPLEX cap 02/09/21 02/17/21 History furosemide 40 mg tablet (Lasix) 20 mg PO QAM #60 tab 02/09/21 02/17/21 Rx insulin glargine 100 unit/mL (3 50 unit SQ QAM ml 02/09/21 02/17/21 History mL) subcutaneous pen (Lantus Solostar U-100 Insulin) lisinopril 40 mg tablet 20 mg PO DAILY #90 tab 02/09/21 02/17/21 Rx Allergies Allergy/AdvReac Type Severity Reaction Status Date / Time exenatide [From [place]] AdvReac Vomiting Verified 02/17/21 17:54 Past Med/Surg History Medical History Acute kidney injury Anemia of chronic disease CKD (chronic kidney disease) CKD stage 3 due to type 2 diabetes mellitus Depression Diabetes Hypertension Hypothyroidism Morbid obesity PE (pulmonary thromboembolism) Peripheral neuropathy Secondary hyperparathyroidism of renal origin Stage 3b chronic kidney disease Vitamin D deficiency Surgical History History of shoulder surgery Family History Grandfather Hypertension Depression Father Depression Sister Depression Mother Diabetes Grandmother (Maternal) Diabetes Social History Smoking Status: Never smoker Hx Alcohol Use: No Hx Substance Use: No Preferred Language: Pashto Communication Ability: Effective 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 Beliefs That Will Affect Care: None marital status: Single Current Living Situation: Parent Current Living Situation Comment: with dad current occupational status: unemployed and disabled Feels Safe at Home: Yes Childhood Exposure to Second-Hand Smoke: Yes caffeine: Yes Dental Care, Regularly: No Seatbelt Use: always Sunscreen Use: No Assistive Devices: None Review of Systems A total of 10 systems reviewed and were otherwise negative Physical Exam Vital Signs Vital Signs - 24 hr 02/17/21 15:20 02/17/21 15:45 02/17/21 16:20 Temperature 36.5 C Temperature Source Oral Pulse Rate 86 Pulse Rate [Apical] 115 H Pulse Rate from SpO2 Sensor Pulse Rhythm [Apical] Regular Respiratory Rate 24 22 Respiratory Effort / Characteristics Non-Labored Non-Labored Non-Labored Respiratory Depth Normal Normal Normal Respiratory Pattern Regular Blood Pressure 94/73 L Blood Pressure [Left Arm] 103/73 Blood Pressure Mean 80 Blood Pressure Mean [Left Arm] 83 Blood Pressure Position [Left Arm] Pulse Oximetry 95 99 100 Oxygen Delivery Method Room Air Room Air Room Air Sepsis Recent Fever Within 48 Hours No Sepsis New/Unexplained Change in Mental Status N/A Sepsis Action Taken by Nursing No Action Required 02/17/21 17:00 02/17/21 17:22 02/17/21 18:00 Temperature Temperature Source Pulse Rate 89 89 Pulse Rate [Apical] 86 Pulse Rate from SpO2 Sensor 90 Pulse Rhythm [Apical] Respiratory Rate 16 18 17 Respiratory Effort / Characteristics Non-Labored Spontaneous Respiratory Depth Respiratory Pattern Blood Pressure 107/73 137/78 Blood Pressure [Left Arm] Blood Pressure Mean 84 97 Blood Pressure Mean [Left Arm] Blood Pressure Position [Left Arm] Pulse Oximetry 100 98 100 Oxygen Delivery Method Room Air Room Air Sepsis Recent Fever Within 48 Hours Sepsis New/Unexplained Change in Mental Status Sepsis Action Taken by Nursing 02/17/21 18:30 02/17/21 19:00 02/17/21 19:30 Temperature Temperature Source Pulse Rate 94 H 87 98 H Pulse Rate [Apical] Pulse Rate from SpO2 Sensor Pulse Rhythm [Apical] Respiratory Rate 20 22 21 Respiratory Effort / Characteristics Respiratory Depth Respiratory Pattern Blood Pressure 129/86 132/89 141/92 H Blood Pressure [Left Arm] Blood Pressure Mean 100 103 108 Blood Pressure Mean [Left Arm] Blood Pressure Position [Left Arm] Pulse Oximetry 100 100 Oxygen Delivery Method Sepsis Recent Fever Within 48 Hours Sepsis New/Unexplained Change in Mental Status Sepsis Action Taken by Nursing 02/17/21 20:00 02/17/21 20:30 02/17/21 21:00 Temperature Temperature Source Pulse Rate 90 93 H 89 Pulse Rate [Apical] Pulse Rate from SpO2 Sensor Pulse Rhythm [Apical] Respiratory Rate 20 24 24 Respiratory Effort / Characteristics Respiratory Depth Respiratory Pattern Blood Pressure 128/82 128/82 132/81 Blood Pressure [Left Arm] Blood Pressure Mean 97 97 98 Blood Pressure Mean [Left Arm] Blood Pressure Position [Left Arm] Pulse Oximetry Oxygen Delivery Method Sepsis Recent Fever Within 48 Hours Sepsis New/Unexplained Change in Mental Status Sepsis Action Taken by Nursing 02/17/21 21:30 02/17/21 22:00 02/17/21 23:48 Temperature Temperature Source Pulse Rate 106 H 108 H Pulse Rate [Apical] 85 Pulse Rate from SpO2 Sensor Pulse Rhythm [Apical] Respiratory Rate 24 20 18 Respiratory Effort / Characteristics Non-Labored Spontaneous Respiratory Depth Normal Respiratory Pattern Blood Pressure 125/83 113/87 Blood Pressure [Left Arm] 122/85 Blood Pressure Mean 97 95 Blood Pressure Mean [Left Arm] 97 Blood Pressure Position [Left Arm] Lying Pulse Oximetry 99 100 100 Oxygen Delivery Method Room Air Sepsis Recent Fever Within 48 Hours Sepsis New/Unexplained Change in Mental Status Sepsis Action Taken by Nursing See below Constitutional WD/WN, vitals as above Eyes EOM intact bilaterally Neck trachea midline Respiratory normal respiratory effort, lungs clear to auscultation Cardiovascular RRR, no murmur, no edema Gastrointestinal (Abdomen) normal bowel sounds, soft, nontender, no hepatosplenomegaly Musculoskeletal Brawny appearance noted to the lower extremities bilaterally. Tenderness to palpation in the left lower extremity. Negative Homans' sign. DP pulse +2 bilaterally. Skin no rashes, warm and dry Neurologic Alert and oriented x3. No focal motor deficits. Psychiatric Acting appropriately Course Course Patient was seen and examined Vital signs including blood pressure were reviewed medications list was verified with patient Labs were obtained, and a saline lock was established An order was placed for continuous cardiac monitoring. The monitor shows a rate of sinus tachycardia with a rate of 120 bpm The patient was medicated with Toradol, Solu-Medrol, fluids Imaging was performed and reviewed The case was discussed with my supervising physician who is in agreement with my plan Upon reassessment, the patient says that his breathing is improved. We discussed his results. He voiced understanding. The case was discussed with the hospitalist service. Recommendations were given. The patient was medicated with insulin 10 units subcu in addition to another liter of fluids. A BMP was rechecked. Unfortunately, the patient's labs have not significantly improved. For this reason, it was felt that the patient should be admitted for further care. He remained stable in the emergency department. Consultations Consultation #1: [facility] hospitalist Administered Medications Discontinued Medications Acetaminophen (Acetaminophen 500 Mg Tab) 1,000 mg PO NOW STA Stop: 02/17/21 16:20 Last Admin: 02/17/21 16:31 Dose: 1,000 mg Documented by: [id number] Albuterol (Albuterol 0.083% Nebu Soln 3 Ml Vial) 2.5 mg NEB NOW STA Stop: 02/17/21 16:20 Last Admin: 02/17/21 17:21 Dose: 2.5 mg Documented by: [id number] Sodium Chloride (Nss 1000ml) 1,000 mls @ 999 mls/hr IV .Q1H1M ONE Stop: 02/17/21 17:19 Last Infusion: 02/17/21 17:33 Dose: 0 mls/hr Documented by: [id number] Admin: 02/17/21 16:31 Dose: 999 mls/hr Documented by: [id number] Sodium Chloride (Nss 1000ml) 1,000 mls @ 999 mls/hr IV .Q1H1M ONE Stop: 02/17/21 21:59 Last Infusion: 02/17/21 22:52 Dose: 0 mls/hr Documented by: [id number] Admin: 02/17/21 21:24 Dose: 999 mls/hr Documented by: [id number] Dextrose/Lactated Ringer's (D5w And Lactated Ringers) 1,000 mls @ 125 mls/hr IV .Q8H SAMUEL Stop: 03/19/21 23:44 Last Admin: 02/17/21 23:39 Dose: 125 mls/hr Documented by: [id number] Lactated Ringer's (Lr) 500 mls @ 999 mls/hr IV .Q31M STA Stop: 02/17/21 23:39 Last Admin: 02/17/21 23:39 Dose: 999 mls/hr Documented by: [id number] Insulin Glargine (Insulin Glargine Solostar 100 Units/Ml 3 Ml Pen) 25 units SQ NOW STA Stop: 02/17/21 23:40 Last Admin: 02/18/21 00:20 Dose: 25 units Documented by: [id number] Cosigned by: [id number] Insulin Human Regular (Novolin-R Insulin Per Unit Charge) 10 units SC NOW STA Stop: 02/17/21 21:00 Last Admin: 02/17/21 21:24 Dose: 10 units Documented by: [id number] Cosigned by: [id number] Ketorolac Tromethamine (Ketorolac 30 Mg/Ml Vial) 30 mg IV NOW ONE Stop: 02/17/21 16:20 Last Admin: 02/17/21 16:32 Dose: 30 mg Documented by: [id number] Methylprednisolone (Methylprednisolone 125 Mg/2 Ml Vial) 125 mg IV NOW STA Stop: 02/17/21 16:20 Last Admin: 02/17/21 16:32 Dose: 125 mg Documented by: [id number] Medical Decision Making Medical Records Attestation: I reviewed the patient's medical records. Home Medications Current Medication List: was personally reviewed by me Laboratory Data Attestation: I reviewed the patient's lab results. Result diagrams: 02/17/21 16:27 02/17/21 21:54 Lab Results 02/17/21 02/17/21 02/17/21 Range/Units 16:21 16:21 16:27 WBC 3.19 L (4.8-10.8) K/uL RBC 3.78 L (4.7-6.1) M/uL Hgb 12.1 L (14.0-18.0) g/dL Hct 34.2 L (42-52) % MCV 90.5 (80-100) fL MCH 32.0 (25-34) pg MCHC 35.4 (32-36) g/dL RDW Std Deviation 42.5 (36.4-46.3) fL RDW Coeff of Guido 12.9 (11.5-14.5) % Plt Count 112 L (130-400) K/uL MPV 11.0 H (7.4-10.4) fL Immature Gran % (Auto) 0.3 % Neut % (Auto) 57.1 % Lymph % (Auto) 29.8 % [place] % (Auto) 10.3 % Eos % (Auto) 2.5 % Baso % (Auto) 0.0 % Neut # (Auto) 1.82 (1.4-6.5) K/uL Lymph # (Auto) 0.95 L (1.2-3.4) K/uL [place] # (Auto) 0.33 (0.11-0.59) K/uL Eos # (Auto) 0.08 (0-0.5) K/uL Baso # (Auto) 0.00 (0-0.2) K/uL Immature Gran # (Auto) 0.01 (0.00-0.02) K/uL Polychromasia 1+ PT (9.0-12.0) Seconds INR (0.9-1.1) VBG pH (7.36-7.41) VBG pCO2 (38-50) mmHg VBG pO2 mmHg VBG HCO3 mmol/L VBG O2 Saturation % VBG Base Excess mEq/L Barometric Pressure mm/Hg Sodium (136-145) mmol/L Potassium (3.5-5.1) mmol/L Chloride (98-107) mmol/L Carbon Dioxide (21-32) mmol/L Anion Gap (3-11) BUN (7-18) mg/dl Creatinine (0.6-1.4) mg/dl Est Cr Clr Drug Dosing ml/min Est GFR ( Amer) ml/min Est GFR (Non-Af Amer) ml/min BUN/Creatinine Ratio (10-20) Glucose (70-99) mg/dl POC Glucose (70-99) mg/dl Calcium (8.5-10.1) mg/dl Phosphorus (2.5-4.9) mg/dl Magnesium (1.8-2.4) mg/dl Total Bilirubin (0.2-1) mg/dl AST (15-37) U/L ALT (12-78) U/L Alkaline Phosphatase (45-117) U/L Troponin I (0-0.045) ng/ml Total Protein (6.4-8.2) gm/dl Albumin (3.4-5.0) gm/dl Globulin (2.5-4.0) gm/dl Albumin/Globulin Ratio (0.9-2) Beta-Hydroxybutyric Acd (0.2-2.81) mg/dl COVID-19 Eval Order Covid19 at [facility] SARS-CoV-2 (PCR) POSITIVE A* (Negative) 02/17/21 02/17/21 02/17/21 Range/Units 16:27 16:27 20:15 WBC (4.8-10.8) K/uL RBC (4.7-6.1) M/uL Hgb (14.0-18.0) g/dL Hct (42-52) % MCV (80-100) fL MCH (25-34) pg MCHC (32-36) g/dL RDW Std Deviation (36.4-46.3) fL RDW Coeff of Guido (11.5-14.5) % Plt Count (130-400) K/uL MPV (7.4-10.4) fL Immature Gran % (Auto) % Neut % (Auto) % Lymph % (Auto) % [place] % (Auto) % Eos % (Auto) % Baso % (Auto) % Neut # (Auto) (1.4-6.5) K/uL Lymph # (Auto) (1.2-3.4) K/uL [place] # (Auto) (0.11-0.59) K/uL Eos # (Auto) (0-0.5) K/uL Baso # (Auto) (0-0.2) K/uL Immature Gran # (Auto) (0.00-0.02) K/uL Polychromasia PT 10.5 (9.0-12.0) Seconds INR 1.0 (0.9-1.1) VBG pH 7.28 L (7.36-7.41) VBG pCO2 36 L (38-50) mmHg VBG pO2 22 mmHg VBG HCO3 16 mmol/L VBG O2 Saturation < 60.0 % VBG Base Excess -9.6 mEq/L Barometric Pressure 731.5 mm/Hg Sodium 135 L (136-145) mmol/L Potassium 4.9 (3.5-5.1) mmol/L Chloride 107 (98-107) mmol/L Carbon Dioxide 18 L (21-32) mmol/L Anion Gap 10.0 (3-11) BUN 45 H (7-18) mg/dl Creatinine 2.91 H (0.6-1.4) mg/dl Est Cr Clr Drug Dosing 53.3 ml/min Est GFR ( Amer) 29.7 ml/min Est GFR (Non-Af Amer) 25.6 ml/min BUN/Creatinine Ratio 15.5 (10-20) Glucose 309 H* (70-99) mg/dl POC Glucose (70-99) mg/dl Calcium 8.7 (8.5-10.1) mg/dl Phosphorus (2.5-4.9) mg/dl Magnesium (1.8-2.4) mg/dl Total Bilirubin 0.6 (0.2-1) mg/dl AST 24 (15-37) U/L ALT 15 (12-78) U/L Alkaline Phosphatase 83 (45-117) U/L Troponin I < 0.015 (0-0.045) ng/ml Total Protein 7.2 (6.4-8.2) gm/dl Albumin 3.0 L (3.4-5.0) gm/dl Globulin 4.2 H (2.5-4.0) gm/dl Albumin/Globulin Ratio 0.7 L (0.9-2) Beta-Hydroxybutyric Acd 21.87 H (0.2-2.81) mg/dl COVID-19 Eval Order SARS-CoV-2 (PCR) (Negative) 02/17/21 02/17/21 Range/Units 20:54 21:54 WBC (4.8-10.8) K/uL RBC (4.7-6.1) M/uL Hgb (14.0-18.0) g/dL Hct (42-52) % MCV (80-100) fL MCH (25-34) pg MCHC (32-36) g/dL RDW Std Deviation (36.4-46.3) fL RDW Coeff of Guido (11.5-14.5) % Plt Count (130-400) K/uL MPV (7.4-10.4) fL Immature Gran % (Auto) % Neut % (Auto) % Lymph % (Auto) % [place] % (Auto) % Eos % (Auto) % Baso % (Auto) % Neut # (Auto) (1.4-6.5) K/uL Lymph # (Auto) (1.2-3.4) K/uL [place] # (Auto) (0.11-0.59) K/uL Eos # (Auto) (0-0.5) K/uL Baso # (Auto) (0-0.2) K/uL Immature Gran # (Auto) (0.00-0.02) K/uL Polychromasia PT (9.0-12.0) Seconds INR (0.9-1.1) VBG pH (7.36-7.41) VBG pCO2 (38-50) mmHg VBG pO2 mmHg VBG HCO3 mmol/L VBG O2 Saturation % VBG Base Excess mEq/L Barometric Pressure mm/Hg Sodium 136 (136-145) mmol/L Potassium 4.5 (3.5-5.1) mmol/L Chloride 109 H (98-107) mmol/L Carbon Dioxide 15 L (21-32) mmol/L Anion Gap 12.0 H (3-11) BUN 46 H (7-18) mg/dl Creatinine 2.87 H (0.6-1.4) mg/dl Est Cr Clr Drug Dosing 54.0 ml/min Est GFR ( Amer) 30.2 ml/min Est GFR (Non-Af Amer) 26.0 ml/min BUN/Creatinine Ratio 16.1 (10-20) Glucose 281 H (70-99) mg/dl POC Glucose 304 H* (70-99) mg/dl Calcium 8.1 L (8.5-10.1) mg/dl Phosphorus 1.6 L (2.5-4.9) mg/dl Magnesium 1.7 L (1.8-2.4) mg/dl Total Bilirubin (0.2-1) mg/dl AST (15-37) U/L ALT (12-78) U/L Alkaline Phosphatase (45-117) U/L Troponin I (0-0.045) ng/ml Total Protein (6.4-8.2) gm/dl Albumin (3.4-5.0) gm/dl Globulin (2.5-4.0) gm/dl Albumin/Globulin Ratio (0.9-2) Beta-Hydroxybutyric Acd (0.2-2.81) mg/dl COVID-19 Eval Order SARS-CoV-2 (PCR) (Negative) Imaging Data Attestation: I personally reviewed and interpreted this imaging study as foll ows: Radiologist's Impression: Venous Doppler Study 02/17/21 16:56 US venous doppler LE BI CLINICAL HISTORY: LE pain hx pe COMPARISON: None available at the time of this dictation. TECHNIQUE: Bilateral lower extremity real-time compression venous ultrasound with Color Doppler imaging. Utilizing real-time ultrasonic imaging multiple real time high-resolution ultrasonic images with compression and noncompression maneuvers of the deep venous system in addition to color doppler imaging were performed from the common femoral vein through the proximal calf veins. FINDINGS: Limited exam due to increased patient body habitus. Currently there is normal compressibility of the deep venous system from the common femoral vein through the proximal calf veins. No current evidence of acute thrombosis is identified. Slow flow is noted throughout. Very limited visualization of the calf vessels. Impression: No evidence of deep venous thrombus. ACT 112: Negative or not required by law. Electronically signed by: Nestor Quintanilla M.D. 02/17/2021 7:41 PM Chest X-Ray 02/17/21 17:45 XR chest 1V portable CLINICAL HISTORY: sob TECHNIQUE: Single frontal radiograph of the chest was obtained. Comparison: Comparison is made to chest and abdomen radiographs 07/08/2019 FINDINGS: No lines and tubes are seen. The cardiomediastinal silhouette is normal. Lungs are underinflated but clear. No evidence of pleural effusion or pneumothorax. IMPRESSION: No acute chest disease. ACT 112: Negative or not required by law. Electronically signed by: Nestor Quintanilla M.D. 02/17/2021 6:18 PM ECG Data Attestation: I personally reviewed and interpreted this ECG as follows: Indication: + SOB/dyspnea Additional Comments: EKG shows sinus tachycardia with a rate of 101 bpm. QTc 433 MS Q waves present in V1, V2 and V3 which appear new when compared to prior EKG of 2018. MDM Narrative Differential diagnosis: Viral pneumonia due to Covid, bacterial pneumonia, myocarditis, [place], anemia, electrolyte abnormality, dehydration, hyperglycemia, DKA, among others were considered This patient is a pleasant 41-year-old male who presents ambulatory to the emergency department for evaluation of shortness of breath and respiratory sym ptoms that have gotten progressively worse over the last week. The patient has a known history of Covid. On exam, the patient was tachycardic. His oxygen saturation was stable on room air. He was initially slightly hypotensive. His lungs sounded clear. A work-up was performed. Labs are consistent with hyperglycemia with an elevated beta hydroxybutyric acid. His creatinine is also notable at 2.91. This was compared to his prior creatinines. He has a history of chronic kidney disease. It appears slightly higher than baseline. There is no leukocytosis. His white blood cell count is slightly low, which is consistent with Covid. He did again test positive today. His chest x-ray was clear. The patient was complaining of leg pain; therefore, an ultrasound was performed. No DVT was noted. I did not have a high suspicion for PE as the patient is already anticoagulated with Eliquis. I was however concerned about his hyperglycemia, which is likely elevated due to his infection. Venous blood gas was performed. He was acidotic. Hospitalist was consulted. They recommended administering insulin and another bolus of fluids in addition to rechecking a BMP. This was performed. It appears now that the patient has an anion gap. His blood glucose has not significantly improved. For this reason, the patient will likely be admitted for further work-up and treatment of DKA/COVID. Impression & Plan DKA (diabetic ketoacidosis), COVID, Acute dyspnea Discharge Plan Visit Data Chief Complaint: Shortness of Breath/Dyspnea Stated Complaint: COV+ OF 02/16..COUGH, SOB ED Midlevel Provider: Jing Mcintosh Discharge Problem: DKA (diabetic ketoacidosis), COVID, Acute dyspnea Patient Disposition: Admitted As Inpatient Condition: Fair Forms Stand Alone Forms: My [facility] [employer] Prescriptions Prescriptions: No Action insulin lispro [Humalog KwikPen Insulin] 100 unit/mL insulin pen 20 unit SQ BID Qty: 15 RF: 5 apixaban 5 mg tablet 5 mg PO BID Qty: 180 RF: 3 levothyroxine [Levoxyl] 150 mcg tablet 300 mcg PO DAILY 90 Days Qty: 180 RF: 3 (DME) Novofine Autocover 30 gauge x 1/3" needle See Rx Instructions .ROUTE .MEDSUPPLY Qty: 300 RF: 3 ketoconazole 2 % shampoo 1 applic TOP DAILY PRN (Reason: seborrheic dermatitis) Qty: 120 RF: 5 ergocalciferol (vitamin D2) 1,250 mcg (50,000 unit) capsule 50,000 unit PO MONTHLY Qty: 4 RF: 3 phentermine 15 mg capsule 15 mg PO QAM Qty: 30 RF: 1 bupropion HCl 200 mg tablet sustained-release 12 hr 200 mg PO QAM Qty: 30 RF: 5 (DME) lancets [OneTouch Delica Lancets] 33 gauge misc See Dose Instructions .ROUTE .MEDSUPPLY Qty: 100 RF: 0 (DME) blood glucose control, normal [OneTouch Ultra Control] solution See Dose Instructions .ROUTE .MEDSUPPLY Qty: 1 RF: 0 (DME) blood-glucose meter [ProformativeTouch Verio Flex meter] misc See Dose Instructions .ROUTE .MEDSUPPLY Qty: 1 RF: 0 (DME) ProformativeTouch Verio test strips strip See Dose Instructions .ROUTE .MEDSUPPLY Qty: 10 RF: 0 cetirizine [Zyrtec] 10 mg tablet 10 mg PO QAM Qty: 30 RF: 5 sertraline 100 mg tablet 100 mg PO HS Qty: 90 RF: 0 metoprolol succinate 25 mg tablet extended release 24 hr 50 mg PO HS 90 Days Qty: 180 RF: 3 atorvastatin 10 mg tablet 10 mg PO .COMPLEX RF: 0 calcitriol 0.5 mcg capsule 0.5 mcg PO .COMPLEX RF: 0 Lantus Solostar U-100 Insulin 100 unit/mL (3 mL) insulin pen 50 unit SQ QAM RF: 0 furosemide [Lasix] 40 mg tablet 20 mg PO QAM Qty: 60 RF: 5 lisinopril 40 mg tablet 20 mg PO DAILY Qty: 90 RF: 3 ondansetron HCl 4 mg tablet 4 mg PO QID PRN (Reason: nausea) Qty: 90 RF: 1 Referrals Referrals: Kareem Jewell MD [Primary Care Provider] -
[2021-02-17 16:59] LABS: Prothrombin Time 10.5 Seconds (9.0-12.0)
[2021-02-17 17:11] LABS: Polychromasia 1+
[2021-02-17 17:20] LABS: Alanine Aminotransferase 15 U/L (12-78); Albumin Globulin Ratio 0.7 (0.9-2); Alkaline Phosphatase 83 U/L (45-117); Aspartate Aminotransferase 24 U/L (15-37); BUN Creatinine Ratio 15.5 (10-20); Bilirubin,Total 0.6 mg/dl (0.2-1); Blood Urea Nitrogen 45 mg/dl (7-18); Calcium 8.7 mg/dl (8.5-10.1); Carbon Dioxide 18 mmol/L (21-32); Chloride 107 mmol/L (98-107); Creatinine Clr Calc Pharmacy 53.3 ml/min; Est GFR (African American) 29.7 ml/min; Est GFR (Non-African American) 25.6 ml/min; Globulin 4.2 gm/dl (2.5-4.0); Glucose 309 mg/dl (70-99); Potassium 4.9 mmol/L (3.5-5.1); Sodium 135 mmol/L (136-145); Total Protein 7.2 gm/dl (6.4-8.2); Troponin I < 0.015 ng/ml (0-0.045)
[2021-02-17 17:40] LABS: Beta-Hydroxybutyrate 21.87 mg/dl (0.2-2.81)
--- NOTE | 2021-02-17 18:20 | XRay Report ---
XR chest 1V portable CLINICAL HISTORY: sob TECHNIQUE: Single frontal radiograph of the chest was obtained. Comparison: Comparison is made to chest and abdomen radiographs 07/08/2019 FINDINGS: No lines and tubes are seen. The cardiomediastinal silhouette is normal. Lungs are underinflated but clear. No evidence of pleural effusion or pneumothorax. IMPRESSION: No acute chest disease. ACT 112: Negative or not required by law. Electronically signed by: Nestor Quintanilla M.D. 02/17/2021 6:18 PM
--- NOTE | 2021-02-17 19:43 | Ultrasound Report ---
US venous doppler LE BI CLINICAL HISTORY: LE pain hx pe COMPARISON: None available at the time of this dictation. TECHNIQUE: Bilateral lower extremity real-time compression venous ultrasound with Color Doppler imagi ng. Utilizing real-time ultrasonic imaging multiple real time high-resolution ultrasonic images with comp ression and noncompression maneuvers of the deep venous system in addition to color doppler imaging w ere performed from the common femoral vein through the proximal calf veins. FINDINGS: Limited exam due to increased patient body habitus. Currently there is normal compressibility of the deep venous system from the common femoral vein through the proximal calf veins. No current evidence of acute thrombosis is identified. Slow flow is noted throughout. Very limited visualization of the c colette vessels. Impression: No evidence of deep venous thrombus. ACT 112: Negative or not required by law. Electronically signed by: Nestor Quintanilla M.D. 02/17/2021 7:41 PM
[2021-02-17 20:26] LABS: Base Excess VBG -9.6 mEq/L; HCO3 VBG 16 mmol/L; Oxygen Saturation VBG < 60.0 %; PCO2 VBG 36 mmHg (38-50); PO2 VBG 22 mmHg; pH VBG 7.28 (7.36-7.41)
[2021-02-17] MEDS ORDERED: NovoLIN-R INSULIN PER UNIT CHARGE SC STA (20:59)
[2021-02-17 22:25] LABS: BUN Creatinine Ratio 16.1 (10-20); Calcium 8.1 mg/dl (8.5-10.1); Est GFR (African American) 30.2 ml/min; Potassium 4.5 mmol/L (3.5-5.1)
[2021-02-17] MEDS ORDERED: LACTATED RINGER'S 500 ML IV STA (23:09)
--- NOTE | 2021-02-17 23:26 | History & Physical Report ---
Date of Service February 17, 2021 Assessment & Plan (1) DKA, type 2: Plan: Patient not taking insulin, decrease oral intake and decrease fluid intake - Mild DKA - HCO3 decrease to 15-- should increase with volume resuscitation by morning - LR for volume resuscitation as already hyperchloremic - Regular insulin 10 units subq already on board ----> Will give 25 units of his Lantus and sliding scale aspart q6 hours - IF gap opens up and BG continues to go up in the face of steroid - will use insulin drip - Lantus dose in morning decreased to 30 units subq until Oral intake - COVID 19- CXR clear - UA evaluate for infective causes - no abdominal pain (2) Stage 3b chronic kidney disease: Plan: Acute on kidney injury NARCISA 2 - Resuscitate with LR as above - Hyperchloremic as well (3) Acute kidney injury: Plan: As above - hold ANIKA/ARB - Urine evaluate for blood/protein (4) Hypertension: Plan: Hold ANIKA/ARB (5) Hypothyroidism: Plan: Continue Synthroid (6) PE (pulmonary thromboembolism): Plan: Continue apixaban History of Present Illness Primary Care Provider: Kareem Jewell MD 41 YOM with past medical history of: Pulmonary embolism x2 (now on Apixaban), DMII (On Insulin), CKD III, HLD, HTN, Morbid Obesity. Patient is COVID vaccinated and comes in today feeling week and unable to walk. He got exposed to COVID last week. He started feeling sick with sinus congestion and mild fevers. Since the start of this week he has lost his appetite and note eating. Since he was not eating, he was not taking any of his insulin including his Lantus. He has been trying to drink water, but endorses this has decreased as well. He has not voided since this morning. He has baseline CKD with CR 1.8- 2.3. In the EMD he arrived tachypneic and week. For his dyspnea he was given 125mg of Solu-Medrol. His labs returned noting mild DKA with HCO3 at 18 and Glucose > 300 as he has likely been in ketosis phase for past couple days. His PH was 2.8 and no Anion Gap. He was given 1L iter of crystalloid at that time. Patient was given subq Regular Inuslin and another bolus of crystalloid with follow up lab results. The patient Glucose is lowering, but continues to show evidence of hypovolemia and DANE with HCO3 down to 15. Patient will be admitted to continue volume replacement with LR bolus 500ml x1 now, then D5LR at 125 ml/hour. Can adjust fluids with urine output and gap. With his sub-q regular insulin on board, will give him 25 units of Lantus at this time. BG q6 hour with aspart coverage. Convert to insulin drip if needed- will hold at this time as volume will likely help as well. Allergies Allergy/AdvReac Type Severity Reaction Status Date / Time exenatide [From [place]] AdvReac Vomiting Verified 02/17/21 17:54 Home Medications Medication Instructions Recorded Confirmed Type blood glucose control, normal #1 ea 01/07/19 02/09/21 History (OneTouch Ultra Control) blood sugar diagnostic (OneTouch #10 ea 01/07/19 02/09/21 History Verio test strips) blood-glucose meter (Knee CreationsTouch #1 ea 01/07/19 02/09/21 History Verio Flex meter) lancets 33 gauge (Knee CreationsTouch Delica #100 ea 01/07/19 02/09/21 History Lancets) ondansetron HCl 4 mg tablet 4 mg PO QID PRN #90 tab 03/31/19 02/17/21 Rx Humalog KwikPen Insulin 100 20 unit SQ BID #15 ml NS 04/21/20 02/17/21 Rx unit/mL subcutaneous (insulin lispro) apixaban 5 mg tablet 5 mg PO BID #180 tab 06/01/20 02/17/21 Rx levothyroxine 150 mcg tablet 300 mcg PO DAILY 90 Days #180 tab 10/11/20 02/17/21 Rx (Levoxyl) pen needle, diabetic, safety 30 #300 ea 10/14/20 02/09/21 Rx gauge x 1/3" (Novofine Autocover) cetirizine 10 mg tablet (Zyrtec) 10 mg PO QAM #30 tab 12/02/20 02/17/21 Rx metoprolol succinate 25 mg 50 mg PO HS 90 Days #180 tab 12/02/20 02/17/21 Rx tablet,extended release 24 hr sertraline 100 mg tablet 100 mg PO HS #90 tab 12/02/20 02/17/21 Rx ketoconazole 2 % shampoo 1 applic TOP DAILY PRN #120 ml 12/12/20 02/17/21 Rx bupropion HCl 200 mg tablet,12 hr 200 mg PO QAM #30 ea 01/12/21 02/17/21 Rx sustained-release ergocalciferol (vitamin D2) 1,250 50,000 unit PO MONTHLY #4 cap 01/12/21 02/17/21 Rx mcg (50,000 unit) capsule phentermine 15 mg capsule 15 mg PO QAM #30 cap 01/12/21 02/17/21 Rx atorvastatin 10 mg tablet 10 mg PO .COMPLEX tab 02/09/21 02/17/21 History calcitriol 0.5 mcg capsule 0.5 mcg PO .COMPLEX cap 02/09/21 02/17/21 History furosemide 40 mg tablet (Lasix) 20 mg PO QAM #60 tab 02/09/21 02/17/21 Rx insulin glargine 100 unit/mL (3 50 unit SQ QAM ml 02/09/21 02/17/21 History mL) subcutaneous pen (Lantus Solostar U-100 Insulin) lisinopril 40 mg tablet 20 mg PO DAILY #90 tab 02/09/21 02/17/21 Rx Past Med/Surg History Medical History Acute kidney injury Anemia of chronic disease CKD (chronic kidney disease) CKD stage 3 due to type 2 diabetes mellitus Depression Diabetes Hypertension Hypothyroidism Morbid obesity PE (pulmonary thromboembolism) Peripheral neuropathy Secondary hyperparathyroidism of renal origin Stage 3b chronic kidney disease Vitamin D deficiency Surgical History History of shoulder surgery Family History Grandfather Hypertension Depression Father Depression Sister Depression Mother Diabetes Grandmother (Maternal) Diabetes Social History Smoking Status: Former smoker Smoking End Date: 2003; Hx Alcohol Use: No Hx Substance Use: No Preferred Language: Polish Communication Ability: Effective Printer Slotter Feeder Required: No Beliefs That Will Affect Care: None marital status: Single Current Living Situation: Family Current Living Situation Comment: lives at home with family current occupational status: unemployed and disabled Other Information That Helps Us Care for You: No Feels Safe at Home: Yes Safety Concerns: Feels Safe At This Time Childhood Exposure to Second-Hand Smoke: Yes caffeine: Yes Dental Care, Regularly: No Seatbelt Use: always Sunscreen Use: No Assistive Devices: Glasses Review of Systems Review of Systems: REVIEW OF SYSTEMS: Constitutional: No fever, sweats or chills Eyes: No diplopia, no worsening or blurred vision ENT: normal hearing, no trouble swallowing Respiratory: (+) dyspnea, No cough, sputum, Cardiovascular: No chest pain, tightness or palpitations Abdomen: (+) loss of appetite, No pain, nausea, vomiting, diarrhea or constipation Musculoskeletal: (+) weakness, No joint pain, calf pain, swelling Neurologic: weakness, numbness/tingling, or balance problems Psychiatric: No anxiety or depression Skin: No rash or itch Physical Exam Physical Exam: PHYSICAL EXAM: General: awake, alert, no apparent distress Head: Normocephalic, atraumatic ENT: PERRL, EOMI, no pharyngeal exudate, mucous membranes moist Neuro: AAO x 3, speech clear and appropriate, strength intact bilaterally 5/5, sensation intact and equal all extremities and dermatomes, no pronator drift Chest: equal rise and fall of the chest, no accessory muscle use, no heaves or thrills, Clear to auscultation, on room air, Cardiac: Regular rate and rhythm, telemetry reviewed, skin warm dry, cap refill <3 seconds, peripheral pulses +2 no JVD, no murmur, no edema GI: Decrease oral intake, NABS x 4 quadrants, soft, nontender to palpation, no rebound, guarding or tenderness : Spontaneously voiding, no pain, no CVA tenderness, Extremities: Normal inspection, no peripheral edema or erythema, calfs nontender to palpation Psych: Normal mood and affect Skin: no rash or erythema Results & Data Results & Data ([facility]) Vital Signs (Past 12 Hours) Vital Signs Temp Pulse Pulse Resp BP BP Pulse Ox 02/17/21 22:00 108 H 20 113/87 100 02/17/21 21:30 106 H 24 125/83 99 02/17/21 21:00 89 24 132/81 02/17/21 20:30 93 H 24 128/82 02/17/21 20:00 90 20 128/82 02/17/21 19:30 98 H 21 141/92 H 02/17/21 19:00 87 22 132/89 100 02/17/21 18:30 94 H 20 129/86 100 02/17/21 18:00 89 17 137/78 100 02/17/21 17:22 86 18 98 02/17/21 17:00 89 16 107/73 100 02/17/21 16:20 100 02/17/21 15:45 115 H 22 103/73 99 02/17/21 15:20 36.5 C 86 24 94/73 L 95 Laboratory Results Abnormal lab results 02/17/21 02/17/21 02/17/21 Range/Units 16:21 16:27 16:27 WBC 3.19 L (4.8-10.8) K/uL RBC 3.78 L (4.7-6.1) M/uL Hgb 12.1 L (14.0-18.0) g/dL Hct 34.2 L (42-52) % Plt Count 112 L (130-400) K/uL MPV 11.0 H (7.4-10.4) fL Lymph # (Auto) 0.95 L (1.2-3.4) K/uL VBG pH (7.36-7.41) VBG pCO2 (38-50) mmHg Sodium 135 L (136-145) mmol/L Chloride (98-107) mmol/L Carbon Dioxide 18 L (21-32) mmol/L Anion Gap (3-11) BUN 45 H (7-18) mg/dl Creatinine 2.91 H (0.6-1.4) mg/dl Glucose 309 H* (70-99) mg/dl POC Glucose (70-99) mg/dl Calcium (8.5-10.1) mg/dl Albumin 3.0 L (3.4-5.0) gm/dl Globulin 4.2 H (2.5-4.0) gm/dl Albumin/Globulin Ratio 0.7 L (0.9-2) Beta-Hydroxybutyric Acd 21.87 H (0.2-2.81) mg/dl SARS-CoV-2 (PCR) POSITIVE A* (Negative) 02/17/21 02/17/21 02/17/21 Range/Units 20:15 20:54 21:54 WBC (4.8-10.8) K/uL RBC (4.7-6.1) M/uL Hgb (14.0-18.0) g/dL Hct (42-52) % Plt Count (130-400) K/uL MPV (7.4-10.4) fL Lymph # (Auto) (1.2-3.4) K/uL VBG pH 7.28 L (7.36-7.41) VBG pCO2 36 L (38-50) mmHg Sodium (136-145) mmol/L Chloride 109 H (98-107) mmol/L Carbon Dioxide 15 L (21-32) mmol/L Anion Gap 12.0 H (3-11) BUN 46 H (7-18) mg/dl Creatinine 2.87 H (0.6-1.4) mg/dl Glucose 281 H (70-99) mg/dl POC Glucose 304 H* (70-99) mg/dl Calcium 8.1 L (8.5-10.1) mg/dl Albumin (3.4-5.0) gm/dl Globulin (2.5-4.0) gm/dl Albumin/Globulin Ratio (0.9-2) Beta-Hydroxybutyric Acd (0.2-2.81) mg/dl SARS-CoV-2 (PCR) (Negative) Diagnostic Findings Venous Doppler Study 02/17/21 16:56 US venous doppler LE BI CLINICAL HISTORY: LE pain hx pe COMPARISON: None available at the time of this dictation. TECHNIQUE: Bilateral lower extremity real-time compression venous ultrasound with Color Doppler imaging. Utilizing real-time ultrasonic imaging multiple real time high-resolution ultrasonic images with compression and noncompression maneuvers of the deep venous system in addition to color doppler imaging were performed from the common femoral vein through the proximal calf veins. FINDINGS: Limited exam due to increased patient body habitus. Currently there is normal compressibility of the deep venous system from the common femoral vein through the proximal calf veins. No current evidence of acute thrombosis is identified. Slow flow is noted throughout. Very limited visualization of the calf vessels. Impression: No evidence of deep venous thrombus. ACT 112: Negative or not required by law. Electronically signed by: Nestor Quintanilla M.D. 02/17/2021 7:41 PM Chest X-Ray 02/17/21 17:45 XR chest 1V portable CLINICAL HISTORY: sob TECHNIQUE: Single frontal radiograph of the chest was obtained. Comparison: Comparison is made to chest and abdomen radiographs 07/08/2019 FINDINGS: No lines and tubes are seen. The cardiomediastinal silhouette is normal. Lungs are underinflated but clear. No evidence of pleural effusion or pneumothorax. IMPRESSION: No acute chest disease. ACT 112: Negative or not required by law. Electronically signed by: Nestor Quintanilla M.D. 02/17/2021 6:18 PM Medications Administered Dextrose/Lactated Ringer's (D5w And Lactated Ringers) 1,000 mls @ 125 mls/hr IV .Q8H SAMUEL Stop: 03/19/21 23:44 Last Admin: 02/17/21 23:39 Dose: 125 mls/hr Documented by: [id number] Discontinued Medications Acetaminophen (Acetaminophen 500 Mg Tab) 1,000 mg PO NOW STA Stop: 02/17/21 16:20 Last Admin: 02/17/21 16:31 Dose: 1,000 mg Documented by: [id number] Albuterol (Albuterol 0.083% Nebu Soln 3 Ml Vial) 2.5 mg NEB NOW STA Stop: 02/17/21 16:20 Last Admin: 02/17/21 17:21 Dose: 2.5 mg Documented by: [id number] Sodium Chloride (Nss 1000ml) 1,000 mls @ 999 mls/hr IV .Q1H1M ONE Stop: 02/17/21 17:19 Last Infusion: 02/17/21 17:33 Dose: 0 mls/hr Documented by: [id number] Admin: 02/17/21 16:31 Dose: 999 mls/hr Documented by: [id number] Sodium Chloride (Nss 1000ml) 1,000 mls @ 999 mls/hr IV .Q1H1M ONE Stop: 02/17/21 21:59 Last Infusion: 02/17/21 22:52 Dose: 0 mls/hr Documented by: [id number] Admin: 02/17/21 21:24 Dose: 999 mls/hr Documented by: [id number] Lactated Ringer's (Lr) 500 mls @ 999 mls/hr IV .Q31M STA Stop: 02/17/21 23:39 Last Admin: 02/17/21 23:39 Dose: 999 mls/hr Documented by: [id number] Insulin Human Regular (Novolin-R Insulin Per Unit Charge) 10 units SC NOW STA Stop: 02/17/21 21:00 Last Admin: 02/17/21 21:24 Dose: 10 units Documented by: [id number] Cosigned by: [id number] Ketorolac Tromethamine (Ketorolac 30 Mg/Ml Vial) 30 mg IV NOW ONE Stop: 02/17/21 16:20 Last Admin: 02/17/21 16:32 Dose: 30 mg Documented by: [id number] Methylprednisolone (Methylprednisolone 125 Mg/2 Ml Vial) 125 mg IV NOW STA Stop: 02/17/21 16:20 Last Admin: 02/17/21 16:32 Dose: 125 mg Documented by: [id number] Home Medications blood glucose control, normal (OneTouch Ultra Control) #1 ea 01/07/19 [History Confirmed 02/09/21] blood sugar diagnostic (OneTouch Verio test strips) #10 ea 01/07/19 [History Confirmed 02/09/21] blood-glucose meter (OneTouch Verio Flex meter) #1 ea 01/07/19 [History Confirmed 02/09/21] lancets 33 gauge (OneTouch Delica Lancets) #100 ea 01/07/19 [History Confirmed 02/09/21] ondansetron HCl 4 mg tablet 4 mg PO QID PRN #90 tab 03/31/19 [Rx Confirmed 02/17/21] Humalog KwikPen Insulin 100 unit/mL subcutaneous (insulin lispro) 20 unit SQ BID #15 ml NS 04/21/20 [Rx Confirmed 02/17/21] apixaban 5 mg tablet 5 mg PO BID #180 tab 06/01/20 [Rx Confirmed 02/17/21] levothyroxine 150 mcg tablet (Levoxyl) 300 mcg PO DAILY 90 Days #180 tab 10/11/20 [Rx Confirmed 02/17/21] pen needle, diabetic, safety 30 gauge x 1/3" (Novofine Autocover) #300 ea 10/14/20 [Rx Confirmed 02/09/21] cetirizine 10 mg tablet (Zyrtec) 10 mg PO QAM #30 tab 12/02/20 [Rx Confirmed 02/17/21] metoprolol succinate 25 mg tablet,extended release 24 hr 50 mg PO HS 90 Days #180 tab 12/02/20 [Rx Confirmed 02/17/21] sertraline 100 mg tablet 100 mg PO HS #90 tab 12/02/20 [Rx Confirmed 02/17/21] ketoconazole 2 % shampoo 1 applic TOP DAILY PRN #120 ml 12/12/20 [Rx Confirmed 02/17/21] bupropion HCl 200 mg tablet,12 hr sustained-release 200 mg PO QAM #30 ea 01/12/21 [Rx Confirmed 02/17/21] ergocalciferol (vitamin D2) 1,250 mcg (50,000 unit) capsule 50,000 unit PO MONTHLY #4 cap 01/12/21 [Rx Confirmed 02/17/21] phentermine 15 mg capsule 15 mg PO QAM #30 cap 01/12/21 [Rx Confirmed 02/17/21] atorvastatin 10 mg tablet 10 mg PO .COMPLEX tab 02/09/21 [History Confirmed 02/17/21] calcitriol 0.5 mcg capsule 0.5 mcg PO .COMPLEX cap 02/09/21 [History Confirmed 02/17/21] furosemide 40 mg tablet (Lasix) 20 mg PO QAM #60 tab 02/09/21 [Rx Confirmed 02/17/21] insulin glargine 100 unit/mL (3 mL) subcutaneous pen (Lantus Solostar U-100 Insulin) 50 unit SQ QAM ml 02/09/21 [History Confirmed 02/17/21] lisinopril 40 mg tablet 20 mg PO DAILY #90 tab 02/09/21 [Rx Confirmed 02/17/21] Active Medications Dextrose/Lactated Ringer's (D5w And Lactated Ringers) 1,000 mls @ 125 mls/hr IV .Q8H SAMUEL Stop: 03/19/21 23:44 Last Admin: 02/17/21 23:39 Dose: 125 mls/hr Documented by: [id number] Additional Comments: Sinus tachycardia Otherwise normal ECG When compared with ECG of 12-OCT-2020 17:33, Vent. rate has increased BY 36 BPM QRS duration has decreased QT has shortened Code Status & VTE Plan Code Status CODE: DNR/DNI VTE: SCDS, Apixaban VTE Prophylaxis Plan VTE Prophylaxis will be ordered: Yes Supervising Physician Co-Signing Physician Notes Attending addendum: I have physically seen this patient, have supervised the LAN's activities, and agree with the H&P unless as otherwise noted. Assessment and Plan: DKA- LR as noted Received 10 units of regular insulin subcu from the ED Give half of his usual Lantus dose 25 units now, follow sugars every 2 hour intervals, and may need to get additional 25 units through the night Does not need an insulin drip. DANE on CKD stage IIIb- LR as noted above Follow serial laboratories Hold furosemide, lisinopril. Hypothyroidism-- continue levothyroxine Remaining orders and notations as noted PG Care Time/CCT Total # of Minutes Spent Total Time Spent with Patient: Total time spent is greater than 50% in coordination of care (as documented) at patient's floor/unit and/or counseling patient: Coding Level of Care Code 29303 Initial Inpt Care Lvl 3 Diagnoses DKA, type 2 E11.10 Stage 3b chronic kidney disease N18.32 Acute kidney injury N17.9 Hypertension I10 Hypothyroidism E03.9 PE (pulmonary thromboembolism) I26.99
[2021-02-17] MEDS ORDERED: INSULIN GLARGINE SOLOSTAR 100 UNITS/ML 3 ML PEN SQ STA (23:39)
[2021-02-17] MEDS ORDERED: D5W AND LACTATED RINGERS 1,000 ML IV SCH (23:45)
[2021-02-18 00:20] LABS: Magnesium 1.7 mg/dl (1.8-2.4); Phosphorus 1.6 mg/dl (2.5-4.9)
[2021-02-18] MEDS: LACTATED RINGER'S 1,000 ML IV SCH ×3 (00:28→17:15)
[2021-02-18] MEDS ORDERED: ATORVASTATIN 10 MG TAB PO SCH (02:15)
[2021-02-18] MEDS ORDERED: ONDANSETRON 4 MG OD TAB PO PRN (02:27)
[2021-02-18] MEDS ORDERED: GLUCAGON FOR INJ 1 MG VIAL IM PRN (02:30)
[2021-02-18] MEDS ORDERED: GLUCOSE 40% GEL 15 GM TUBE PO PRN (02:30)
[2021-02-18] MEDS ORDERED: GLUCOSE 10 TABS/TUBE PO PRN (02:30)
[2021-02-18] MEDS ORDERED: DEXTROSE 50% 50 ML SYRINGE IV PRN (02:30)
[2021-02-18] MEDS ORDERED: CARBOHYDRATES FOR HYPOGLYCEMIA PO PRN (02:30)
[2021-02-18] MEDS: INSULIN ASPART 100 UNITS/ML 3 ML PEN SC SCH ×5 (03:11→21:27)
[2021-02-18] MEDS: LEVOTHYROXINE SODIUM 150 MCG TABLET PO SCH (05:07)
--- NOTE | 2021-02-18 05:54 | Communication Note ---
Date of Service: February 18, 2021 Patient continued to have elevated blood sugars into the 300's overnight. - Put in for 6U regular insulin and 25U Lantus at 6AM. - Patient will get another 25U Lantus at 9AM, He normally will take 50U of Lantus in the morning. - AM BMP to look at potassium and anion gap
[2021-02-18] MEDS ORDERED: INSULIN GLARGINE SOLOSTAR 100 UNITS/ML 3 ML PEN SC ONE (06:15)
[2021-02-18] MEDS ORDERED: INSULIN HUMAN REGULAR PER UNIT 6 UNITS in SYRINGE 5.94 ML IV ONE (06:15)
[2021-02-18 06:33] LABS: Hematocrit (blood only) 31.9 % (42-52); Hemoglobin 11.1 g/dL (14.0-18.0); Immature Granulocytes # (auto) 0.01 K/uL (0.00-0.02); Immature Granulocytes % (auto) 0.4 %; Lymphocytes # (auto) 0.48 K/uL (1.2-3.4); Lymphocytes % (auto) 18.8 %; Mean Corpuscular Hemoglobin 31.5 pg (25-34); Mean Corpuscular Hgb Conc 34.8 g/dL (32-36); Mean Corpuscular Volume 90.6 fL (80-100); Mean Platelet Volume 11.2 fL (7.4-10.4); Monocytes # (auto) 0.02 K/uL (0.11-0.59); Monocytes % (auto) 0.8 %; Neutrophils # (auto) 2.05 K/uL (1.4-6.5); Platelet Count 119 K/uL (130-400); RDW Coefficient of Variation 12.9 % (11.5-14.5); RDW Standard Deviation 42.7 fL (36.4-46.3); Red Blood Count 3.52 M/uL (4.7-6.1); White Blood Count 2.56 K/uL (4.8-10.8)
[2021-02-18 07:19] LABS: BUN Creatinine Ratio 17.1 (10-20); Calcium 8.3 mg/dl (8.5-10.1); Est GFR (African American) 30.3 ml/min; Est GFR (Non-African American) 26.1 ml/min; Magnesium 1.7 mg/dl (1.8-2.4); Potassium 4.8 mmol/L (3.5-5.1)
[2021-02-18 07:24] LABS: Appearance Urine Clear (Clear); Bacteria Urine Automated Negative (Negative); Bilirubin Urine Negative (Negative); Blood Urine Negative (Negative); Color Urine Dark Yellow; Epithelial Cell Urine Auto >30 /lpf (0-5); Glucose Urine UA 2+ (Negative); Ketones Urine Trace (Negative); Leukocyte Esterase Urine Negative (Negative); Nitrite Urine Negative (Negative); Protein Urine Trace (Negative); RBC Urine Automated 0-4 /hpf (0-4); Urobilinogen Urine Negative (Negative)
[2021-02-18 07:31] LABS: Beta-Hydroxybutyrate 30.34 mg/dl (0.2-2.81)
[2021-02-18] MEDS ORDERED: DKA GOAL RANGE 150-250 mg/dl ONE (07:51)
[2021-02-18] MEDS ORDERED: DC ALL PREVIOUSLY ORDERED DIABETES MEDS ONE (07:51)
[2021-02-18] MEDS ORDERED: PHARMACY GLYCEMIC MGMT CONSULT PRN (07:51)
[2021-02-18] MEDS ORDERED: STAT IV Infusion **Titration per Protocol STA ×2 (07:51)
[2021-02-18] MEDS ORDERED: INSULIN REGULAR 250 UNITS in SODIUM CHLORIDE 0.9% 247.5 ML IV SCH (08:00)
[2021-02-18] MEDS ORDERED: INSULIN HUMAN REGULAR PER UNIT 10 UNITS in SYRINGE 9.9 ML IV ONE (08:30)
[2021-02-18] MEDS ORDERED: INSULIN GLARGINE SOLOSTAR 100 UNITS/ML 3 ML PEN SQ SCH ×2 (09:00)
[2021-02-18] MEDS: MAGNESIUM SULFATE / D5W 1 GM/100 ML BAG IV SCH ×2 (09:24→12:41)
[2021-02-18] MEDS: buPROPion SR 100 MG TABCR PO SCH (09:33)
[2021-02-18] MEDS: APIXABAN 5 MG TABLET PO SCH ×2 (09:33→21:12)
[2021-02-18] MEDS: CETIRIZINE HCL 10 MG TABLET PO SCH (09:34)
[2021-02-18 12:11] LABS: BUN Creatinine Ratio 20.7 (10-20); Calcium 7.5 mg/dl (8.5-10.1); Creatinine Clr Calc Pharmacy 73.8 ml/min; Est GFR (African American) 43.2 ml/min; Est GFR (Non-African American) 37.3 ml/min; Magnesium 1.6 mg/dl (1.8-2.4); Potassium 4.3 mmol/L (3.5-5.1)
--- NOTE | 2021-02-18 12:15 | Hospitalist Progress Note ---
Date of Service February 18, 2021 Assessment & Plan (1) DKA (diabetic ketoacidosis): (2) COVID-19: (3) Hypophosphatemia: (4) Stage 3b chronic kidney disease: Plan: baseline Cr 1.9 (5) Acute kidney injury: (6) Hypertension: (7) Mixed hyperlipidemia: (8) Uncontrolled type 2 diabetes mellitus: Plan: a1c 8.7% 2 weeks ago no repeat needed (9) Metabolic syndrome: (10) Morbid obesity: Plan: BMI 44.5 (11) Hypothyroidism: (12) PE (pulmonary thromboembolism): (13) Hypomagnesemia: Plan: 1. change SC insulin basal-bolus to insulin drip per protocol, DKA range; pharmacy glycemic consult. 2. replace low mag, low phos. Add KCL to IVF. 3. cont IVF for DKA and DANE. 4. cont synthroid - TSH wnl. 5. serial labs including pH, bmp, mag, phos. 6. repeat CBC in am for leukopenia/thrombocytopenia - due to COVID. 7. no evidence COVID pneumonia fortunately with stable O2 sats in RA. 8. cont eliquis BID for DVT proph; has prior h/o VTE. father updated by phone Admission and Anticipated Discharge Date Admission Date: February 17, 2021 Subjective patient feeling "Much better" than from admission dry mouth resolved cough/congestion improved tachypnea (which was from met acidosis) resolved tolerating diet no N/V/D/abd pain tele overnight wnl states father has COVID - they live together pt had COVID vaccine Review of Systems Review of Systems: gen - no fevers/chills/sweats CV - no cp GI - no diarrhea musculo - recent myalgias resolved Physical Exam Physical Exam: gen - morbid obesity, NAD, looks good mouth - MMM neck - no JVD heart - RRR, s1 s2 lungs - CTA b/l abd - soft NT ND BS+ ext - no edema, pulses 2+ b/l Results & Data Results & Data ([facility]) Vital Signs (Past 12 Hours) Vital Signs Temp Pulse Pulse Resp BP Pulse Ox 02/18/21 10:19 85 02/18/21 07:32 37.0 C 67 18 123/72 99 02/18/21 05:34 80 02/18/21 03:47 36.4 C L 78 16 138/96 99 02/18/21 03:10 84 18 134/77 99 02/18/21 02:10 86 16 144/84 H 100 02/18/21 01:05 88 18 138/80 100 02/18/21 00:39 87 18 121/83 98 Laboratory Results Laboratory Results - last 24 hr 02/17/21 02/17/21 02/17/21 16:21 16:21 16:27 WBC 3.19 L RBC 3.78 L Hgb 12.1 L Hct 34.2 L MCV 90.5 MCH 32.0 MCHC 35.4 RDW Std Deviation 42.5 RDW Coeff of Guido 12.9 Plt Count 112 L MPV 11.0 H Immature Gran % (Auto) 0.3 Neut % (Auto) 57.1 Lymph % (Auto) 29.8 [place] % (Auto) 10.3 Eos % (Auto) 2.5 Baso % (Auto) 0.0 Neut # (Auto) 1.82 Lymph # (Auto) 0.95 L [place] # (Auto) 0.33 Eos # (Auto) 0.08 Baso # (Auto) 0.00 Immature Gran # (Auto) 0.01 Polychromasia 1+ PT INR VBG pH VBG pCO2 VBG pO2 VBG HCO3 VBG O2 Saturation VBG Base Excess Barometric Pressure Sodium Potassium Chloride Carbon Dioxide Anion Gap BUN Creatinine Est Cr Clr Drug Dosing Est GFR ( Amer) Est GFR (Non-Af Amer) BUN/Creatinine Ratio Glucose POC Glucose Lactate Calcium Phosphorus Magnesium Total Bilirubin AST ALT Alkaline Phosphatase Troponin I C-Reactive Protein Total Protein Albumin Globulin Albumin/Globulin Ratio Beta-Hydroxybutyric Acd Urine Color Urine Appearance Urine pH Ur Specific [place] Urine Protein Urine Glucose (UA) Urine Ketones Urine Blood Urine Nitrite Urine Bilirubin Urine Urobilinogen Ur Leukocyte Esterase Urine WBC (Auto) Urine RBC (Auto) U Hyaline Cast (Auto) U Epithel Cells (Auto) Urine Bacteria (Auto) Granular Casts Urine Yeast COVID-19 Eval Order Covid19 at [facility] SARS-CoV-2 (PCR) POSITIVE A* 02/17/21 02/17/21 02/17/21 16:27 16:27 20:15 WBC RBC Hgb Hct MCV MCH MCHC RDW Std Deviation RDW Coeff of Guido Plt Count MPV Immature Gran % (Auto) Neut % (Auto) Lymph % (Auto) [place] % (Auto) Eos % (Auto) Baso % (Auto) Neut # (Auto) Lymph # (Auto) [place] # (Auto) Eos # (Auto) Baso # (Auto) Immature Gran # (Auto) Polychromasia PT 10.5 INR 1.0 VBG pH 7.28 L VBG pCO2 36 L VBG pO2 22 VBG HCO3 16 VBG O2 Saturation < 60.0 VBG Base Excess -9.6 Barometric Pressure 731.5 Sodium 135 L Potassium 4.9 Chloride 107 Carbon Dioxide 18 L Anion Gap 10.0 BUN 45 H Creatinine 2.91 H Est Cr Clr Drug Dosing 53.3 Est GFR ( Amer) 29.7 Est GFR (Non-Af Amer) 25.6 BUN/Creatinine Ratio 15.5 Glucose 309 H* POC Glucose Lactate Calcium 8.7 Phosphorus Magnesium Total Bilirubin 0.6 AST 24 ALT 15 Alkaline Phosphatase 83 Troponin I < 0.015 C-Reactive Protein Total Protein 7.2 Albumin 3.0 L Globulin 4.2 H Albumin/Globulin Ratio 0.7 L Beta-Hydroxybutyric Acd 21.87 H Urine Color Urine Appearance Urine pH Ur Specific [place] Urine Protein Urine Glucose (UA) Urine Ketones Urine Blood Urine Nitrite Urine Bilirubin Urine Urobilinogen Ur Leukocyte Esterase Urine WBC (Auto) Urine RBC (Auto) U Hyaline Cast (Auto) U Epithel Cells (Auto) Urine Bacteria (Auto) Granular Casts Urine Yeast COVID-19 Eval Order SARS-CoV-2 (PCR) 02/17/21 02/17/21 02/17/21 20:54 21:54 23:35 WBC RBC Hgb Hct MCV MCH MCHC RDW Std Deviation RDW Coeff of Guido Plt Count MPV Immature Gran % (Auto) Neut % (Auto) Lymph % (Auto) [place] % (Auto) Eos % (Auto) Baso % (Auto) Neut # (Auto) Lymph # (Auto) [place] # (Auto) Eos # (Auto) Baso # (Auto) Immature Gran # (Auto) Polychromasia PT INR VBG pH VBG pCO2 VBG pO2 VBG HCO3 VBG O2 Saturation VBG Base Excess Barometric Pressure Sodium 136 Potassium 4.5 Chloride 109 H Carbon Dioxide 15 L Anion Gap 12.0 H BUN 46 H Creatinine 2.87 H Est Cr Clr Drug Dosing 54.0 Est GFR ( Amer) 30.2 Est GFR (Non-Af Amer) 26.0 BUN/Creatinine Ratio 16.1 Glucose 281 H POC Glucose 304 H* 318 H* Lactate Calcium 8.1 L Phosphorus 1.6 L Magnesium 1.7 L Total Bilirubin AST ALT Alkaline Phosphatase Troponin I C-Reactive Protein Total Protein Albumin Globulin Albumin/Globulin Ratio Beta-Hydroxybutyric Acd Urine Color Urine Appearance Urine pH Ur Specific [place] Urine Protein Urine Glucose (UA) Urine Ketones Urine Blood Urine Nitrite Urine Bilirubin Urine Urobilinogen Ur Leukocyte Esterase Urine WBC (Auto) Urine RBC (Auto) U Hyaline Cast (Auto) U Epithel Cells (Auto) Urine Bacteria (Auto) Granular Casts Urine Yeast COVID-19 Eval Order SARS-CoV-2 (PCR) 02/18/21 02/18/21 02/18/21 00:23 03:06 05:23 WBC 2.56 L RBC 3.52 L Hgb 11.1 L Hct 31.9 L MCV 90.6 MCH 31.5 MCHC 34.8 RDW Std Deviation 42.7 RDW Coeff of Guido 12.9 Plt Count 119 L MPV 11.2 H Immature Gran % (Auto) 0.4 Neut % (Auto) 80.0 Lymph % (Auto) 18.8 [place] % (Auto) 0.8 Eos % (Auto) 0.0 Baso % (Auto) 0.0 Neut # (Auto) 2.05 Lymph # (Auto) 0.48 L [place] # (Auto) 0.02 L Eos # (Auto) 0.00 Baso # (Auto) 0.00 Immature Gran # (Auto) 0.01 Polychromasia PT INR VBG pH VBG pCO2 VBG pO2 VBG HCO3 VBG O2 Saturation VBG Base Excess Barometric Pressure Sodium Potassium Chloride Carbon Dioxide Anion Gap BUN Creatinine Est Cr Clr Drug Dosing Est GFR ( Amer) Est GFR (Non-Af Amer) BUN/Creatinine Ratio Glucose POC Glucose 341 H* Lactate 1.4 Calcium Phosphorus Magnesium Total Bilirubin AST ALT Alkaline Phosphatase Troponin I C-Reactive Protein Total Protein Albumin Globulin Albumin/Globulin Ratio Beta-Hydroxybutyric Acd Urine Color Urine Appearance Urine pH Ur Specific [place] Urine Protein Urine Glucose (UA) Urine Ketones Urine Blood Urine Nitrite Urine Bilirubin Urine Urobilinogen Ur Leukocyte Esterase Urine WBC (Auto) Urine RBC (Auto) U Hyaline Cast (Auto) U Epithel Cells (Auto) Urine Bacteria (Auto) Granular Casts Urine Yeast COVID-19 Eval Order SARS-CoV-2 (PCR) 02/18/21 02/18/21 02/18/21 05:23 06:06 07:00 WBC RBC Hgb Hct MCV MCH MCHC RDW Std Deviation RDW Coeff of Guido Plt Count MPV Immature Gran % (Auto) Neut % (Auto) Lymph % (Auto) [place] % (Auto) Eos % (Auto) Baso % (Auto) Neut # (Auto) Lymph # (Auto) [place] # (Auto) Eos # (Auto) Baso # (Auto) Immature Gran # (Auto) Polychromasia PT INR VBG pH VBG pCO2 VBG pO2 VBG HCO3 VBG O2 Saturation VBG Base Excess Barometric Pressure Sodium 132 L Potassium 4.8 Chloride 106 Carbon Dioxide 16 L Anion Gap 10.0 BUN 49 H Creatinine 2.86 H Est Cr Clr Drug Dosing 55.0 Est GFR ( Amer) 30.3 Est GFR (Non-Af Amer) 26.1 BUN/Creatinine Ratio 17.1 Glucose 352 H* POC Glucose 314 H* Lactate Calcium 8.3 L Phosphorus Magnesium 1.7 L Total Bilirubin AST ALT Alkaline Phosphatase Troponin I C-Reactive Protein Total Protein Albumin Globulin Albumin/Globulin Ratio Beta-Hydroxybutyric Acd 30.34 H Urine Color Dark Yellow Urine Appearance Clear Urine pH 5.0 Ur Specific [place] 1.020 Urine Protein Trace H Urine Glucose (UA) 2+ H Urine Ketones Trace H Urine Blood Negative Urine Nitrite Negative Urine Bilirubin Negative Urine Urobilinogen Negative Ur Leukocyte Esterase Negative Urine WBC (Auto) 1-5 Urine RBC (Auto) 0-4 U Hyaline Cast (Auto) 5-10 H U Epithel Cells (Auto) >30 H Urine Bacteria (Auto) Negative Granular Casts 10-20 H Urine Yeast Not Reportable COVID-19 Eval Order SARS-CoV-2 (PCR) 02/18/21 02/18/21 02/18/21 07:31 10:35 11:24 WBC RBC Hgb Hct MCV MCH MCHC RDW Std Deviation RDW Coeff of Guido Plt Count MPV Immature Gran % (Auto) Neut % (Auto) Lymph % (Auto) [place] % (Auto) Eos % (Auto) Baso % (Auto) Neut # (Auto) Lymph # (Auto) [place] # (Auto) Eos # (Auto) Baso # (Auto) Immature Gran # (Auto) Polychromasia PT INR VBG pH VBG pCO2 VBG pO2 VBG HCO3 VBG O2 Saturation VBG Base Excess Barometric Pressure Sodium 134 L Potassium 4.3 Chloride 110 H Carbon Dioxide 15 L Anion Gap 9.0 BUN 44 H Creatinine 2.13 H D Est Cr Clr Drug Dosing 73.8 Est GFR ( Amer) 43.2 Est GFR (Non-Af Amer) 37.3 BUN/Creatinine Ratio 20.7 H Glucose 173 H POC Glucose 302 H* 225 H Lactate Calcium 7.5 L Phosphorus Pending Magnesium 1.6 L Total Bilirubin AST ALT Alkaline Phosphatase Troponin I C-Reactive Protein Pending Total Protein Albumin Globulin Albumin/Globulin Ratio Beta-Hydroxybutyric Acd Urine Color Urine Appearance Urine pH Ur Specific [place] Urine Protein Urine Glucose (UA) Urine Ketones Urine Blood Urine Nitrite Urine Bilirubin Urine Urobilinogen Ur Leukocyte Esterase Urine WBC (Auto) Urine RBC (Auto) U Hyaline Cast (Auto) U Epithel Cells (Auto) Urine Bacteria (Auto) Granular Casts Urine Yeast COVID-19 Eval Order SARS-CoV-2 (PCR) 02/18/21 02/18/21 11:24 11:38 WBC RBC Hgb Hct MCV MCH MCHC RDW Std Deviation RDW Coeff of Guido Plt Count MPV Immature Gran % (Auto) Neut % (Auto) Lymph % (Auto) [place] % (Auto) Eos % (Auto) Baso % (Auto) Neut # (Auto) Lymph # (Auto) [place] # (Auto) Eos # (Auto) Baso # (Auto) Immature Gran # (Auto) Polychromasia PT INR VBG pH 7.33 L VBG pCO2 VBG pO2 VBG HCO3 VBG O2 Saturation VBG Base Excess Barometric Pressure Sodium Potassium Chloride Carbon Dioxide Anion Gap BUN Creatinine Est Cr Clr Drug Dosing Est GFR ( Amer) Est GFR (Non-Af Amer) BUN/Creatinine Ratio Glucose POC Glucose 201 H Lactate Calcium Phosphorus Magnesium Total Bilirubin AST ALT Alkaline Phosphatase Troponin I C-Reactive Protein Total Protein Albumin Globulin Albumin/Globulin Ratio Beta-Hydroxybutyric Acd Urine Color Urine Appearance Urine pH Ur Specific [place] Urine Protein Urine Glucose (UA) Urine Ketones Urine Blood Urine Nitrite Urine Bilirubin Urine Urobilinogen Ur Leukocyte Esterase Urine WBC (Auto) Urine RBC (Auto) U Hyaline Cast (Auto) U Epithel Cells (Auto) Urine Bacteria (Auto) Granular Casts Urine Yeast COVID-19 Eval Order SARS-CoV-2 (PCR) PG Care Time/CCT Total # of Minutes Spent Total Time Spent with Patient: Total time spent is greater than 50% in coordination of care (as documented) at patient's floor/unit and/or counseling patient: Coding Level of Care Code 58786 Subseq Hosp Care Lvl 3 Diagnoses DKA (diabetic ketoacidosis) E11.10 COVID-19 U07.1 Hypophosphatemia E83.39 Stage 3b chronic kidney disease N18.32 Acute kidney injury N17.9 Hypertension I10 Mixed hyperlipidemia E78.2 Uncontrolled type 2 diabetes mellitus E11.65 Metabolic syndrome E88.81 Morbid obesity E66.01 Hypothyroidism E03.9 PE (pulmonary thromboembolism) I26.99 Hypomagnesemia E83.42
[2021-02-18 12:27] LABS: C Reactive Protein 0.59 mg/dl (0-0.29); Phosphorus 1.1 mg/dl (2.5-4.9)
[2021-02-18] MEDS ORDERED: SODIUM PHOSPHATE 3 MMOL/1 ML INFUSION IV STA ×2 (13:37→13:40)
[2021-02-18] MEDS ORDERED: SODIUM PHOSPHATE 30 MMOL in SODIUM CHLORIDE 0.9% 500 ML IV ONE (13:45)
[2021-02-18] MEDS ORDERED: SODIUM PHOSPHATE 24 MMOL in SODIUM CHLORIDE 0.9% 500 ML IV ONE (13:45)
--- NOTE | 2021-02-18 14:02 | Electrocardiogram Report ---
Test Reason : Blood Pressure : / mmHG Vent. Rate : 101 BPM Atrial Rate : 101 BPM P-R Int : 160 ms QRS Dur : 092 ms QT Int : 334 ms P-R-T Axes : 024 002 035 degrees QTc Int : 433 ms Sinus tachycardia Otherwise normal ECG When compared with ECG of 12-OCT-2020 17:33, Vent. rate has increased BY 36 BPM QRS duration has decreased QT has shortened Confirmed by Kareem Hoffman ([id number]) on 02/18/2021 2:01:53 PM Referred By: Kareem Jewell Confirmed By:Kareem Hoffman
--- NOTE | 2021-02-18 14:50 | Pharmacy Report ---
Pharmacy Glycemic Short Note 2 - Date of Service February 18, 2021 - Glycemic Short BSG Results (Last 24 hours): 02/17/21 02/17/21 02/17/21 16:27 20:54 21:54 Glucose 309 H* 281 H POC Glucose 304 H* 02/17/21 02/18/21 02/18/21 23:35 03:06 05:23 Glucose 352 H* POC Glucose 318 H* 341 H* 02/18/21 02/18/21 02/18/21 06:06 07:31 10:35 Glucose POC Glucose 314 H* 302 H* 225 H 02/18/21 02/18/21 02/18/21 11:24 11:38 12:36 Glucose 173 H POC Glucose 201 H 148 H 02/18/21 12:53 Glucose POC Glucose 161 H OUTPATIENT ANTIDIABETIC REGIMEN: * Lantus 50 units SQ QAM * Humalog 20 units BID ASSESSMENT: * 41 y/o M admitted for Covid, mild DKA and acute kidney injury. Patient with history of Type 2 diabetes and CKD- stage 3. Baseline S. creat 1.8-2.3. * Overnight, patient's blood sugars were above 300 mg/dl and mildly acidotic. Lantus 25 units x1 given around midnight with no improvement. Patient had not been taking any insulin prior to admission due to poor appetite from covid symptoms. * Insulin drip started this AM for mild DKA. Anion gap has resolved but patient is still acidotic. Renal function improving slowly. * BSGs currently controlled and at goal but will continue on insulin drip for now until labs are improved and patient is not acidotic. PLAN FOR INPATIENT GLYCEMIC CONTROL: * Basal insulin * Hold until labs are improved and patient is not acidotic * Bolus insulin * Novolog carb ratio based on insulin drip calculator PLAN FOR DISCHARGE: * TBD
[2021-02-18 18:25] LABS: BUN Creatinine Ratio 21.3 (10-20); Creatinine Clr Calc Pharmacy 79.4 ml/min; Est GFR (African American) 47.2 ml/min; Est GFR (Non-African American) 40.8 ml/min; Magnesium 1.9 mg/dl (1.8-2.4); Potassium 3.9 mmol/L (3.5-5.1)
[2021-02-18] MEDS ORDERED: POTASSIUM CHLORIDE 20 MEQ in LACTATED RINGER'S 1,000 ML IV SCH (19:30)
[2021-02-18] MEDS: METOPROLOL SUCC 50MG EXT REL TAB PO SCH (21:12)
[2021-02-18] MEDS: SERTRALINE HCL 100 MG TABLET PO SCH (21:12)
[2021-02-19 01:06] LABS: BUN Creatinine Ratio 21.3 (10-20); Calcium 8.1 mg/dl (8.5-10.1); Creatinine Clr Calc Pharmacy 80.2 ml/min; Est GFR (African American) 47.8 ml/min; Est GFR (Non-African American) 41.3 ml/min; Potassium 3.9 mmol/L (3.5-5.1)
[2021-02-19] MEDS ORDERED: POTASSIUM CHLORIDE 20 MEQ in D5W AND LACTATED RINGERS 1,000 ML IV SCH (03:45)
[2021-02-19] MEDS ORDERED: INSULIN GLARGINE SOLOSTAR 100 UNITS/ML 3 ML PEN SQ ONE (04:00)
[2021-02-19] MEDS: LEVOTHYROXINE SODIUM 150 MCG TABLET PO SCH (04:58)
[2021-02-19 06:18] LABS: Eosinophils # (auto) 0.01 K/uL (0-0.5); Eosinophils % (auto) 0.2 %; Hematocrit (blood only) 30.7 % (42-52); Hemoglobin 10.4 g/dL (14.0-18.0); Immature Granulocytes # (auto) 0.01 K/uL (0.00-0.02); Immature Granulocytes % (auto) 0.2 %; Lymphocytes # (auto) 1.63 K/uL (1.2-3.4); Lymphocytes % (auto) 29.9 %; Mean Corpuscular Hemoglobin 31.3 pg (25-34); Mean Corpuscular Hgb Conc 33.9 g/dL (32-36); Mean Corpuscular Volume 92.5 fL (80-100); Mean Platelet Volume 10.8 fL (7.4-10.4); Monocytes # (auto) 0.23 K/uL (0.11-0.59); Monocytes % (auto) 4.2 %; Neutrophils # (auto) 3.58 K/uL (1.4-6.5); Neutrophils % (auto) 65.5 %; Platelet Count 142 K/uL (130-400); RDW Coefficient of Variation 13.1 % (11.5-14.5); RDW Standard Deviation 44.5 fL (36.4-46.3); Red Blood Count 3.32 M/uL (4.7-6.1); White Blood Count 5.46 K/uL (4.8-10.8)
[2021-02-19 06:55] LABS: BUN Creatinine Ratio 19.2 (10-20); Calcium 8.2 mg/dl (8.5-10.1); Creatinine Clr Calc Pharmacy 81.3 ml/min; Est GFR (African American) 48.1 ml/min; Est GFR (Non-African American) 41.5 ml/min; Magnesium 1.9 mg/dl (1.8-2.4); Phosphorus 2.9 mg/dl (2.5-4.9); Potassium 4.5 mmol/L (3.5-5.1)
[2021-02-19] MEDS: buPROPion SR 100 MG TABCR PO SCH (08:54)
[2021-02-19] MEDS: APIXABAN 5 MG TABLET PO SCH ×2 (08:55→20:20)
[2021-02-19] MEDS: CETIRIZINE HCL 10 MG TABLET PO SCH (08:55)
[2021-02-19] MEDS: INSULIN ASPART 100 UNITS/ML 3 ML PEN SC SCH ×4 (08:56→20:24)
--- NOTE | 2021-02-19 15:27 | Pharmacy Report ---
Pharmacy Glycemic Short Note 2 - Date of Service February 19, 2021 - Glycemic Short BSG Results (Last 24 hours): 02/18/21 02/18/21 02/18/21 15:48 16:48 17:48 Glucose POC Glucose 160 H 136 H 146 H 02/18/21 02/18/21 02/18/21 17:52 18:46 20:43 Glucose 133 H POC Glucose 148 H 168 H 02/18/21 02/19/21 02/19/21 22:50 00:36 00:44 Glucose 125 H POC Glucose 132 H 111 H 02/19/21 02/19/21 02/19/21 01:49 02:55 04:01 Glucose POC Glucose 117 H 121 H 126 H 02/19/21 02/19/21 02/19/21 05:01 05:15 05:54 Glucose 212 H POC Glucose 144 H 145 H 02/19/21 02/19/21 02/19/21 06:53 08:03 12:11 Glucose POC Glucose 154 H 134 H 151 H OUTPATIENT ANTIDIABETIC REGIMEN: * Lantus 50 units SQ QAM * Humalog 20 units BID ASSESSMENT: 02/19: * Insulin drip discontinued this AM since BSGs at goal, and labs almost normal (CO2 still slightly low but improving). * Patient received 30 units of Lantus early today AM based on around total of 30 units of insulin from insulin drip over the past 12 hrs. Continued with Lantus 30 units QAM. * Novolog carb ratio tightened further. BSGs have been within or near goal today. 02/18/21: * 41 y/o M admitted for Covid, mild DKA and acute kidney injury. Patient with history of Type 2 diabetes and CKD- stage 3. Baseline S. creat 1.8-2.3. * Overnight, patient's blood sugars were above 300 mg/dl and mildly acidotic. Lantus 25 units x1 given around midnight with no improvement. Patient had not been taking any insulin prior to admission due to poor appetite from covid symptoms. * Insulin drip started this AM for mild DKA. Anion gap has resolved but patient is still acidotic. Renal function improving slowly. * BSGs currently controlled and at goal but will continue on insulin drip for now until labs are improved and patient is not acidotic. PLAN FOR INPATIENT GLYCEMIC CONTROL: * Basal insulin * Lantus 30 units SQ QAM * Bolus insulin * Novolog ACHS or Q6h if NPO * Correction factor 1:15 mg/dl * Carb ratio 1 unit per 5 gm of CHO PLAN FOR DISCHARGE: * TBD
[2021-02-19] MEDS: SERTRALINE HCL 100 MG TABLET PO SCH (20:20)
[2021-02-19] MEDS: METOPROLOL SUCC 50MG EXT REL TAB PO SCH (20:21)
--- NOTE | 2021-02-19 23:00 | Hospitalist Progress Note ---
Date of Service February 19, 2021 Assessment & Plan (1) DKA (diabetic ketoacidosis): Plan: resolved insulin drip off gap closed over to lantus-novolog w/ very good control today pharmacy assistance appreciated observe overnight to trend his BSGs if control remains good can d/c home tomorrow (2) COVID-19: Plan: fortunately no pulmonary symptoms feeling better overall had been vaccinated (3) Hypophosphatemia: Plan: improved (4) Stage 3b chronic kidney disease: Plan: baseline Cr 1.9 (5) Acute kidney injury: Plan: resolved Cr at baseline today (6) Hypertension: Plan: controlled (7) Mixed hyperlipidemia: Plan: statin (8) Uncontrolled type 2 diabetes mellitus: Plan: a1c 8.7% 2 weeks ago no repeat needed (9) Metabolic syndrome: (10) Morbid obesity: Plan: BMI 45 (11) Hypothyroidism: Plan: TSH earlier this month wnl cont synthroid (12) PE (pulmonary thromboembolism): Plan: h/o cont eliquis BID (13) Hypomagnesemia: Plan: replaced resolved (14) Leukopenia: Plan: 2nd COVID infection resolved (15) Thrombocytopenia: Plan: 2nd to COVID infection lowest 112 in 140s today Plan: father updated by phone yesterday anticipate d/c in am tomorrow if BSGs remain stable on SC insulin encouraged more ambulation in preparation for home tomorrow Admission and Anticipated Discharge Date Admission Date: February 17, 2021 Subjective patient feeling "a ton better" only lingering nasal/sinus congestion pulmonary symptoms resolved energy improved good appetite tele wnl o2 sats wnl insulin drip off since middle of the night he is ambulating to bathroom without difficulty Review of Systems Review of Systems: gen - no fevers/chills CV - no orthopnea pulm - no cough, no dyspnea GI - no N/V/D or pain Physical Exam Physical Exam: gen - morbid obesity, NAD, looks great today mouth - MMM; no thrush neck - no JVD heart - RRR, s1 s2, no murmur lungs - CTA b/l abd - soft NT ND BS+ ext - no edema, pulses 2+ b/l psych - a/o x 3 Results & Data Results & Data ([facility]) Vital Signs (Past 12 Hours) Vital Signs Temp Pulse Resp BP Pulse Ox 02/19/21 19:52 36.9 C 77 19 100/54 L 98 02/19/21 15:26 36.4 C L 71 18 115/71 97 02/19/21 11:06 36.6 C 68 18 121/69 99 Laboratory Results Laboratory Results - last 24 hr 02/19/21 02/19/21 02/19/21 00:36 00:36 00:44 WBC RBC Hgb Hct MCV MCH MCHC RDW Std Deviation RDW Coeff of Guido Plt Count MPV Immature Gran % (Auto) Neut % (Auto) Lymph % (Auto) [place] % (Auto) Eos % (Auto) Baso % (Auto) Neut # (Auto) Lymph # (Auto) [place] # (Auto) Eos # (Auto) Baso # (Auto) Immature Gran # (Auto) VBG pH 7.33 L Sodium 141 Potassium 3.9 Chloride 115 H Carbon Dioxide 19 L Anion Gap 8.0 BUN 42 H Creatinine 1.96 H Est Cr Clr Drug Dosing 80.2 Est GFR ( Amer) 47.8 Est GFR (Non-Af Amer) 41.3 BUN/Creatinine Ratio 21.3 H Glucose 125 H POC Glucose 111 H Calcium 8.1 L Phosphorus Magnesium 2.0 02/19/21 02/19/21 02/19/21 01:49 02:55 04:01 WBC RBC Hgb Hct MCV MCH MCHC RDW Std Deviation RDW Coeff of Guido Plt Count MPV Immature Gran % (Auto) Neut % (Auto) Lymph % (Auto) [place] % (Auto) Eos % (Auto) Baso % (Auto) Neut # (Auto) Lymph # (Auto) [place] # (Auto) Eos # (Auto) Baso # (Auto) Immature Gran # (Auto) VBG pH Sodium Potassium Chloride Carbon Dioxide Anion Gap BUN Creatinine Est Cr Clr Drug Dosing Est GFR ( Amer) Est GFR (Non-Af Amer) BUN/Creatinine Ratio Glucose POC Glucose 117 H 121 H 126 H Calcium Phosphorus Magnesium 02/19/21 02/19/21 02/19/21 05:01 05:15 05:15 WBC 5.46 RBC 3.32 L Hgb 10.4 L Hct 30.7 L MCV 92.5 MCH 31.3 MCHC 33.9 RDW Std Deviation 44.5 RDW Coeff of Guido 13.1 Plt Count 142 MPV 10.8 H Immature Gran % (Auto) 0.2 Neut % (Auto) 65.5 Lymph % (Auto) 29.9 [place] % (Auto) 4.2 Eos % (Auto) 0.2 Baso % (Auto) 0.0 Neut # (Auto) 3.58 Lymph # (Auto) 1.63 [place] # (Auto) 0.23 Eos # (Auto) 0.01 Baso # (Auto) 0.00 Immature Gran # (Auto) 0.01 VBG pH Sodium 138 Potassium 4.5 D Chloride 112 H Carbon Dioxide 18 L Anion Gap 8.0 BUN 37 H Creatinine 1.95 H Est Cr Clr Drug Dosing 81.3 Est GFR ( Amer) 48.1 Est GFR (Non-Af Amer) 41.5 BUN/Creatinine Ratio 19.2 Glucose 212 H POC Glucose 144 H Calcium 8.2 L Phosphorus 2.9 D Magnesium 1.9 02/19/21 02/19/21 02/19/21 05:54 06:53 08:03 WBC RBC Hgb Hct MCV MCH MCHC RDW Std Deviation RDW Coeff of Guido Plt Count MPV Immature Gran % (Auto) Neut % (Auto) Lymph % (Auto) [place] % (Auto) Eos % (Auto) Baso % (Auto) Neut # (Auto) Lymph # (Auto) [place] # (Auto) Eos # (Auto) Baso # (Auto) Immature Gran # (Auto) VBG pH Sodium Potassium Chloride Carbon Dioxide Anion Gap BUN Creatinine Est Cr Clr Drug Dosing Est GFR ( Amer) Est GFR (Non-Af Amer) BUN/Creatinine Ratio Glucose POC Glucose 145 H 154 H 134 H Calcium Phosphorus Magnesium 02/19/21 02/19/21 02/19/21 12:11 17:03 20:14 WBC RBC Hgb Hct MCV MCH MCHC RDW Std Deviation RDW Coeff of Guido Plt Count MPV Immature Gran % (Auto) Neut % (Auto) Lymph % (Auto) Stone % (Auto) Eos % (Auto) Baso % (Auto) Neut # (Auto) Lymph # (Auto) Stone # (Auto) Eos # (Auto) Baso # (Auto) Immature Gran # (Auto) VBG pH Sodium Potassium Chloride Carbon Dioxide Anion Gap BUN Creatinine Est Cr Clr Drug Dosing Est GFR ( Amer) Est GFR (Non-Af Amer) BUN/Creatinine Ratio Glucose POC Glucose 151 H 142 H 147 H Calcium Phosphorus Magnesium PG Care Time/CCT Total # of Minutes Spent Total Time Spent with Patient: Total time spent is greater than 50% in coordination of care (as documented) at patient's floor/unit and/or counseling patient: Coding Level of Care Code 65591 Subseq Hosp Care Lvl 2 Diagnoses DKA (diabetic ketoacidosis) E11.10 COVID-19 U07.1 Hypophosphatemia E83.39 Stage 3b chronic kidney disease N18.32 Acute kidney injury N17.9 Hypertension I10 Mixed hyperlipidemia E78.2 Uncontrolled type 2 diabetes mellitus E11.65 Metabolic syndrome E88.81 Morbid obesity E66.01 Hypothyroidism E03.9 PE (pulmonary thromboembolism) I26.99 Hypomagnesemia E83.42 Leukopenia D72.819 Thrombocytopenia D69.6
[2021-02-20] MEDS: LEVOTHYROXINE SODIUM 150 MCG TABLET PO SCH (04:29)
[2021-02-20] MEDS: INSULIN ASPART 100 UNITS/ML 3 ML PEN SC SCH ×2 (07:06→08:56)
[2021-02-20 07:43] LABS: BUN Creatinine Ratio 17.4 (10-20); Calcium 8.3 mg/dl (8.5-10.1); Creatinine Clr Calc Pharmacy 100.3 ml/min; Est GFR (African American) 61.1 ml/min; Est GFR (Non-African American) 52.7 ml/min
[2021-02-20] MEDS: APIXABAN 5 MG TABLET PO SCH (08:46)
[2021-02-20] MEDS: buPROPion SR 100 MG TABCR PO SCH (08:48)
[2021-02-20] MEDS: CETIRIZINE HCL 10 MG TABLET PO SCH (08:49)
[2021-02-20] MEDS ORDERED: INSULIN GLARGINE SOLOSTAR 100 UNITS/ML 3 ML PEN SQ SCH (09:00)
[2021-02-20] MEDS ORDERED: ATORVASTATIN 10 MG TAB PO SCH (09:00)
[2021-02-20] MEDS ORDERED: CALCITRIOL 0.25 MCG CAPSULE PO SCH (09:00)
--- NOTE | 2021-02-20 11:06 | Discharge Summary ---
Date of Service February 20, 2021 Admission HPI Per Admitting Provider 41 YOM with past medical history of: Pulmonary embolism x2 (now on Apixaban), DMII (On Insulin), CKD III, HLD, HTN, Morbid Obesity. Patient is COVID vaccinated and comes in today feeling week and unable to walk. He got exposed to COVID last week. He started feeling sick with sinus congestion and mild fevers. Since the start of this week he has lost his appetite and note eating. Since he was not eating, he was not taking any of his insulin including his Lantus. He has been trying to drink water, but endorses this has decreased as well. He has not voided since this morning. He has baseline CKD with CR 1.8- 2.3. In the EMD he arrived tachypneic and week. For his dyspnea he was given 125mg of Solu-Medrol. His labs returned noting mild DKA with HCO3 at 18 and Glucose > 300 as he has likely been in ketosis phase for past couple days. His PH was 2.8 and no Anion Gap. He was given 1L iter of crystalloid at that time. Patient was given subq Regular Inuslin and another bolus of crystalloid with follow up lab results. The patient Glucose is lowering, but continues to show evidence of hypovolemia and DANE with HCO3 down to 15. Patient will be admitted to continue volume replacement with LR bolus 500ml x1 now, then D5LR at 125 ml/hour. Can adjust fluids with urine output and gap. With his sub-q regular insulin on board, will give him 25 units of Lantus at this time. BG q6 hour with aspart coverage. Convert to insulin drip if needed- will hold at this time as volume will likely help as well. Principal Diagnosis DKA COVID 19 infection Discharge Exam General: well developed, well nourished, morbidly obese, no acute distress, comfortable Neck: supple, trachea midline, normal thyroid Lungs: clear to auscultation bilaterally, normal respiratory effort, no accessory muscle use, no distress Heart: regular S1 and S2, no murmur, peripheral pulses normal, capillary refill normal, no edema Abdomen: soft, NT, ND, + BS, no hepatomegaly, normal to percussion Extremities: normal in appearance, no cyanosis, no petechiae, strength is 5/5 bilaterally Neuro: awake, cooperative, moves all extremities, no focal motor deficits, CN II-XII intact, sensation in extremities intact, normal speech Skin: warm, dry, no rash, normal turgor Psych: Awake, alert oriented x 3, euthymic affect Discharge Data Allergies Allergy/AdvReac Type Severity Reaction Status Date / Time exenatide [From [place]] AdvReac Vomiting Verified 02/17/21 17:54 Consultations 02/18/21 00:23 ED Decision to Admit Stat Ordered Studies 02/17/21 16:56 US venous doppler [facility] Stat Hospital Course (1) DKA (diabetic ketoacidosis): resolved insulin drip off for over 24 hours gap closed over to lantus-novolog w/ very good control the past 36 hours pharmacy assistance appreciated all sugars are < 200 for two days resume Lantus 50 units and Humalog 20 BID he admits that he eats more carbohydrates at home, typically eats twice a day at home educated him that even when he is ill, he should still take Lantus, can reduce to 50% of typical dose should check sugars q6 when ill to make sure sugars are not too high or too low (2) COVID-19: fortunately no pulmonary symptoms, he is 97% on room air this morning feeling better overall had been vaccinated instructed to stay isolated 14 days from onset of symptoms (3) Hypophosphatemia: improved (4) Stage 3b chronic kidney disease: baseline Cr 1.9 today he is at 1.6 (5) Acute kidney injury: resolved Cr at 1.6, making urine, electrolytes stable (6) Hypertension: controlled educated to hold lisinopril in the future when he is ill and not drinking well (7) Mixed hyperlipidemia: statin (8) Uncontrolled type 2 diabetes mellitus: a1c 8.7% 2 weeks ago no repeat needed (9) Metabolic syndrome: (10) Morbid obesity: BMI 45 (11) Hypothyroidism: TSH earlier this month wnl cont synthroid (12) PE (pulmonary thromboembolism): h/o cont eliquis BID (13) Hypomagnesemia: replaced resolved (14) Leukopenia: 2nd COVID infection resolved (15) Thrombocytopenia: 2nd to COVID infection resolving discharge to home Total Time Total Time Spent Total Time Spent (In Minutes): 32 Total Time Includes: Examination of the Patient, Discharge Planning and Medication Reconciliation Discharge Plan Discharge Items Patient Disposition: Home - Self-Care Reason For Visit: COVID-19, DKA Discharge Diagnosis: DKA, resolved COVID 19 positive, no pneumonia Condition on Discharge: Good Goals: better glucose control, resume previous regimen stay isolated for 7 more days Activity: Resume your previous activity Driving/Machine Use: No limitations Weightbearing: Full weightbearing Non-emergency contact: Primary Care Provider Call non-emergency contact if: you have any medication questions, your symptoms worsen and you have a fever Follow-up/Referrals: ProKareem MD [Primary Care Provider] - (one week) Diet: Carb Count or DM1 and Heart Healthy Addtl Attending Provider Instructions: Medications: no changes made Diabetic ketoacidosis: likely caused by acute illness with COVID important to remember, even if you are not eating much, you still need basal insulin to keep sugars under control if you get in a similar situation in the future, you should continue to take Lantus but cut the dose by 50%, so you would take 25 units in the morning instead of 50 units check your sugars every 6 hours while sick to make sure they are not too high or too low Acute kidney injury on chronic kidney disease: caused by acute illness, dehydration and then complicated by DKA which makes you even more dehydrated creatinine back to baseline at 1.6, electrolytes stable, making urine okay to resume Lisinopril in the future, when you get ill, you can hold Lisinopril, especially if you are not drinking much and getting dehydrated COVID 19: no signs of serious infection, not requiring oxygen recommend staying isolated 14 days from onset of symptoms Pending Studies at Discharge: No Stand-Alone Forms: [employer], Smoking Cessation Medications and DC Order Prescriptions: Continued insulin lispro [Humalog KwikPen Insulin] 100 unit/mL insulin pen 20 unit SQ BID Qty: 15 RF: 5 apixaban 5 mg tablet 5 mg PO BID Qty: 180 RF: 3 levothyroxine [Levoxyl] 150 mcg tablet 300 mcg PO DAILY 90 Days Qty: 180 RF: 3 (DME) Novofine Autocover 30 gauge x 1/3" needle See Rx Instructions .ROUTE .MEDSUPPLY Qty: 300 RF: 3 ketoconazole 2 % shampoo 1 applic TOP DAILY PRN (Reason: seborrheic dermatitis) Qty: 120 RF: 5 ergocalciferol (vitamin D2) 1,250 mcg (50,000 unit) capsule 50,000 unit PO MONTHLY Qty: 4 RF: 3 phentermine 15 mg capsule 15 mg PO QAM Qty: 30 RF: 1 bupropion HCl 200 mg tablet sustained-release 12 hr 200 mg PO QAM Qty: 30 RF: 5 (DME) lancets [OneTouch Delica Lancets] 33 gauge misc See Dose Instructions .ROUTE .MEDSUPPLY Qty: 100 RF: 0 (DME) blood glucose control, normal [OneTouch Ultra Control] solution See Dose Instructions .ROUTE .MEDSUPPLY Qty: 1 RF: 0 (DME) blood-glucose meter [OneTouch Verio Flex meter] misc See Dose Instructions .ROUTE .MEDSUPPLY Qty: 1 RF: 0 (DME) OneTouch Verio test strips strip See Dose Instructions .ROUTE .MEDSUPPLY Qty: 10 RF: 0 cetirizine [Zyrtec] 10 mg tablet 10 mg PO QAM Qty: 30 RF: 5 sertraline 100 mg tablet 100 mg PO HS Qty: 90 RF: 0 metoprolol succinate 25 mg tablet extended release 24 hr 50 mg PO HS 90 Days Qty: 180 RF: 3 atorvastatin 10 mg tablet 10 mg PO .COMPLEX RF: 0 calcitriol 0.5 mcg capsule 0.5 mcg PO .COMPLEX RF: 0 Lantus Solostar U-100 Insulin 100 unit/mL (3 mL) insulin pen 50 unit SQ QAM RF: 0 furosemide [Lasix] 40 mg tablet 20 mg PO QAM Qty: 60 RF: 5 lisinopril 40 mg tablet 20 mg PO DAILY Qty: 90 RF: 3 ondansetron HCl 4 mg tablet 4 mg PO QID PRN (Reason: nausea) Qty: 90 RF: 1 Discharge Orders: Discharge Order (Routine); Ordered 02/20/21 Ordered By: Nestor Blair/Other Patient Handouts: Managing Type 2 Diabetes, Diabetes: Sick-Day Plan, Special Foot Care for Diabetes Admission Data Admit Date/Time: 02/17/21 23:20 Attending Provider: Nestor Olivas Admit Provider: Greg Stockton Primary Care Provider: Kareem Jewell Other Providers: Vicente Gonzalez Coding Level of Care Code D/C DAY MANAGEMENT >30 MINS Diagnoses DKA (diabetic ketoacidosis) E11.10 COVID-19 U07.1 Hypophosphatemia E83.39 Stage 3b chronic kidney disease N18.32 Acute kidney injury N17.9 Hypertension I10 Mixed hyperlipidemia E78.2 Uncontrolled type 2 diabetes mellitus E11.65 Metabolic syndrome E88.81 Morbid obesity E66.01 Hypothyroidism E03.9 PE (pulmonary thromboembolism) I26.99 Hypomagnesemia E83.42 Leukopenia D72.819 Thrombocytopenia D69.6
[2021-02-27] MEDS ORDERED: ERGOCALCIFEROL 50,000 UNITS 1250 MCG CAP PO SCH (09:00)
== END 2021-02-20 12:16 | disposition home or self-care (01) | DRG 177 ==
LOC: ED 15:18 → SUATTDRO 23:20 → EDINP 23:20 → 2S 02-18 02:11